=== PATIENT | male | born 1985 | race Caucasian/White ===

== ENCOUNTER 2024-12-02 20:35 | Emergency (ER) | payer OTHER, SELFPAY ==
[2024-12-02] VITALS (17 sets, daily range): BP systolic 131–150; BP diastolic 66–85; PULSE 53–92; TEMP 36.5; O2SAT 95–99; BMI 28.8
--- NOTE | 2024-12-02 21:03 | ECG_ITS ---
The [facility] Test Date: 2024-12-02 Pat Name: AMNA AMES Department: Room: - Gender: Male [employer]: : 1985 Requested By: BHAVIN PARRA Order Number: [id number] Reading MD: BHAVIN PARRA Measurements Intervals [place] Rate: 52 P: -57 MA: 168 QRS: 37 QRSD: 106 T: 0 QT: 400 QTc: 380 Interpretive Statements 1200 Atrial rhythm 9140 abnormal rhythm ECG No previous ECG available for comparison Electronically Signed On 12-03-2024 6:54:48 EST by BHAVIN PARRA
--- NOTE | 2024-12-02 21:29 | ED_ITS ---
HPI HPI - Fall General Chief Complaint: Fall Stated Complaint: FELL Time Seen by Provider: 12/02/24 20:54 Source: patient Mode of arrival: walk-in Limitations: no limitations History of Present Illness HPI Narrative: This 39-year-old male who is otherwise healthy is brought to the emergency department by his parents. The patient was outside with his walking their dog. He was in the driveway and she was in the backyard. He fell in the driveway and hit the right side of his eyebrow sustaining approximately 1 cm laceration to the right lateral eyebrow area. He states that the time that he fell he put his right hand out to stop his fall and also has some right wrist injury with extension of the right wrist. He also fell onto his right hip and has some right lateral hip pain. He was able to ambulate after that fall and went around the back of the house to find his and their dog. He then went inside and was standing over the sink washing out the laceration when he became dizzy and passed out and fell on the floor. EMS was called by the patient's . His vital signs were stable and the decision was made that his parents would bring him to the emergency department. While in the lobby he became dizzy and nauseated and states he felt really hot like he was going to pass out. He denies any chest pain or shortness of breath. He has no focal weakness numbness or tingling. He has no neck or back pain. Related Data Home Medications ?Medication ?Instructions ?Recorded ?Confirmed No Known Home Medications 12/02/24 12/02/24 Allergies Allergy/AdvReac Type Severity Reaction Status Date / Time No Known Drug Allergies Allergy Verified 12/02/24 20:43 Opioid HPI Opioid Management Most Recent Pain and Opioid Data: No Data to Display Review of Systems ROS Status of ROS 10 or more systems reviewed and unremark able except as noted in history and below PFSH PFSH Social History Little interest or pleasure in doing things: not at all Feeling down, depressed, or hopeless: not at all Exam Narrative Exam Narrative: Vital signs and Nursing Notes reviewed: Patient is afebrile with a normal pulse, blood pressure is elevated 144/85, he is not hypoxic with pulse ox of 99% on room air General: Awake, alert, oriented, no acute distress, lying comfortably on the stretcher-GCS 15 HEENT: Normocephalic atraumatic, mucous membranes are moist and pink, eyes are clear, normal conjunctiva, vision is grossly intact, posterior pharynx is normal in appearance. 1 cm superficial laceration to the lateral aspect of the right eyebrow Neck: Supple, non tender Chest: Lungs are clear to auscultation with good air entry, there is no wheezing rhonchi or rales appreciated no accessory muscle use, patient is speaking in complete sentences-no chest wall tenderness to palpation CVS: Regular rate and rhythm S1-S2, no murmurs rubs or gallops, pulses are brisk and equal bilaterally ABD: Soft, nondistended, nontender, no rebound guarding or rigidity, bowel sounds are normal, no pulsatile masses appreciated Extremities: Moving all extremities, no lower extremity tenderness or swelling noted, negative Homans' sign, pulses are brisk and equal bilaterally, mild tenderness over the right lateral proximal femur without ecchymosis, abrasion or other notable abnormality. Patient is able to flex at the right hip and knee without difficulty. Mild tenderness to the distal radius and ulna without point tenderness, snuffbox tenderness ecchymosis or other notable abnormality. Patient is able to make a fist without difficulty Skin: Normal in appearance without rash,pallor, petechiae or purpura Neuro: No focal deficits, speech is clear, there is no facial droop, he is ambulatory with a steady gait Constitutional Vital Signs, click to edit/add: Last Vital Signs Temp 97.7 F 12/02/24 20:38 Pulse 92 H 12/02/24 23:20 Resp 19 12/02/24 23:20 BP 150/78 H 12/02/24 23:00 Pulse Ox 97 12/02/24 23:20 O2 Del Method Room Air 12/02/24 20:38 Course Vital Signs Vital signs: Vital Signs Temperature 97.7 F 12/02/24 20:38 Pulse Rate 63 12/02/24 20:38 Respiratory Rate 18 12/02/24 20:38 Blood Pressure 144/85 H 12/02/24 20:38 Pulse Oximetry 99 12/02/24 20:38 Oxygen Delivery Method Room Air 12/02/24 20:38 Temperature 97.7 F 12/02/24 20:38 Pulse Rate 92 H 12/02/24 23:20 Respiratory Rate 19 12/02/24 23:20 Blood Pressure 150/78 H 12/02/24 23:00 Pulse Oximetry 97 12/02/24 23:20 Oxygen Delivery Method Room Air 12/02/24 20:38 MDM - Fall MDM Narrative Medical decision making narrative: This 39-year-old male is brought to emergency department by his family after he fell on the ice in his driveway and sustained a laceration to his right lateral eyebrow area. He also states that he feels that he injured his wrist when he fell and his right hip as he fell on his right hip and braced his fall with his right wrist. He denies loss of consciousness but then went into the bathroom and was cleaning up the laceration on his face when he became dizzy and passed out. His called EMS but his vital signs were stable upon their arrival and he was brought to the emergency department by his parents. He started becoming nauseated and dizzy in the emergency department and was brought back to a room as soon as possible. EKG done upon arrival was a sinus rhythm at 52 bpm. An IV was placed and he was medicated with IV fluids, Zofran for his nausea and Tylenol. CT scan of the head and neck was ordered. The CT scans were included in the body of this report and are negative for acute findings. X-ray of the right hip is negative. X-ray of the right wrist does not show any fracture but shows findings concerning for a scapholunate ligamentous injury. Clinically the patient does not have any notable abnormality in this area but does complain of some pain in this area. Cardiac workup was ordered due to the syncopal event. He has a normal white count and hemoglobin. Electrolytes are normal with the exception of a mildly low potassium of 3.1 which was replaced orally. Glucose and troponin were both normal. The right wrist sprain was treated with an Anton wrap and wrist splint The forehead laceration was cleaned and closed with 5, 4-0 Ethilon sutures Tetanus was updated Patient remained hemodynamically stable in the emergency department and was discharged home with his family. He will be referred to outpatient orthopedics as well as his family physician for suture removal in the next 5 to 7 days. I encouraged him to drink plenty of fluids, eat bananas and drink orange juice for the low potassium and return to the emergency department for severe headache, dizziness, chest pain focal weakness numbness tingling or any concerns. Medical Records Medical records narrative: The [address] [address] [address] Scan Report Signed Patient: AMNA AMES MR#: [id number] : 1985 Acct:[id number] Age/Sex: 39 / M ADM Date: 12/02/24 Loc: ER Attending Dr: Ordering Physician: Kylee Ledesma Date of Service: 12/02/24 Procedure(s): CT head/brain wo con Accession Number(s): [id number] cc: Sanket Gonsalves D.O.~ The [address] [address] Patient Name: AMNA AMES MRN: [id number] date: 1985 Sex: M Assigned Patient Location: ER Current Patient Location: ER Accession/Order Number: [id number] Exam Date: 12/02/2024 21:56 Report Date: 12/02/2024 22:35 At the request of: KYLEE LEDESMA Procedure: CT head/brain wo con EXAM: CT head/brain wo con, CT cervical spine wo con HISTORY: fall, head injury COMPARISON: None. TECHNIQUE: Axial CT scans through the head and cervical spine were obtained without IV contrast administration. Dose reduction techniques were achieved by using: automated exposure control and/or adjustment of mA and /or kV according to patient size and/or use of iterative reconstruction technique. FINDINGS: CT BRAIN There is no evidence of acute intracranial hemorrhage or abnormal extra-axial fluid collection. No mass effect or midline shift is seen. There is no evidence of large acute territorial infarction. There is no hydrocephalus. No definite acute fracture is identified. Soft tissues are unremarkable. The visualized orbits show no abnormality. The visualized paranasal sinuses show no air-fluid level. Mastoid air cells are clear. CT CERVICAL SPINE No acute fracture or posttraumatic malalignment is seen. The dens and lateral masses of C1 are symmetric. There is straightening of the normal cervical lordotic curvature, may be related to positioning or muscle spasm. At C6-7 level, there is small disc osteophyte complex. No significant spinal canal or neural foraminal narrowing. The disc spaces are preserved. The prevertebral soft tissue space appears normal. Visualized lung apices show no acute abnormality. CT/CT head/brain wo con IMPRESSION: No CT evidence of acute intracranial abnormality. No visualized acute cervical spine abnormality. Electronically authenticated by: MEGAN [facility] Date: 12/02/2024 22:35 Lab Data Attestation: I reviewed the patient's lab results. Labs: Lab Results 12/02/24 Range/Units 21:07 WBC 7.6 (4.0-11.0) 10^3/uL RBC 5.30 (4.70-6.10) 10^6/uL Hgb 15.9 (14.0-18.0) g/dL Hct 46.0 (42.0-54.0) % MCV 86.8 (80.0-94.0) fL MCH 30.0 (25.9-34.0) pg MCHC 34.6 (29.9-35.2) g/dL RDW 12.3 (11.0-15.0) % Plt Count 344 (150-450) 10^3/uL MPV 9.0 L (9.5-13.5) fL Neut % (Auto) 43.5 (43.0-75.0) % Lymph % (Auto) 44.6 (20.5-60.0) % [place] % (Auto) 7.9 (1.7-12.0) % Eos % (Auto) 3.3 (0.9-7.0) % Baso % (Auto) 0.4 (0.2-2.0) % Neut # (Auto) 3.3 (1.4-6.5) 10^3/uL Lymph # (Auto) 3.4 (1.2-3.8) 10^3/uL [place] # (Auto) 0.6 (0.3-0.8) 10^3/uL Eos # (Auto) 0.3 (0.0-0.7) 10^3/uL Baso # (Auto) 0.0 (0.0-0.1) 10^3/uL Abs Immat Gran (auto) 0.02 (0.00-0.03) 10^3/uL Imm/Tot Granulo (auto) 0.3 (0.0-0.5) % Sodium 143 (136-145) mmol/L Potassium 3.1 L (3.5-5.1) mmol/L Chloride 102 (98-107) mmol/L Carbon Dioxide 29.7 (21.0-32.0) mmol/L Anion Gap 14.4 BUN 18.0 (7.0-18.0) mg/dL Creatinine 1.10 (0.70-1.30) mg/dL Est GFR ( Amer) >60 (>=60 mL/min/1.73m^2) Est GFR (Non-Af Amer) >60 (>=60 mL/min/1.73m^2) BUN/Creatinine Ratio 16.4 Glucose 121 H (74-106) mg/dL Calcium 9.1 (8.5-10.1) mg/dL Total Bilirubin 0.3 (0.2-1.0) mg/dL AST 22 (15-37) U/L ALT 38 (16-63) U/L Alkaline Phosphatase 70 (46-116) U/L Troponin I High Sens 5.7 (4.0-76.1) pg/mL Total Protein 7.6 (6.4-8.2) g/dL Albumin 3.9 (3.4-5.0) g/dL Globulin 3.7 g/dL Albumin/Globulin Ratio 1.1 ECG Data Attestation: I personally reviewed and interpreted this ECG as follows: (Sinus bradycardia 52 bpm, normal axis, nonspecific ST changes, no acute ST segment elevation or T wave inversion) Discharge Plan Discharge Chief Complaint: Fall Clinical Impression: Fall due to ice or snow, Laceration of eyebrow, Closed head injury, Sutured skin wound, Syncope, Injury of wrist, right, Contusion of hip Patient Disposition: Home, Self-Care Time of Disposition Decision: 23:11 Condition: Good Prescriptions / Home Meds: No Action No Known Home Medications Print Language: Thai Instructions: Wrist Injury (ED), Laceration (ED), Syncope (ED), Head Injury (ED) Additional Instructions: Sutures can be removed in 5 to 7 days. Please leave the Anton wrap and splint on your right wrist until you are seen in follow-up. Return to the emergency department for severe headache, intractable vomiting, severe dizziness, focal weakness numbness or any concerns. Drink plenty of fluids including orange juice and bananas over the course of the next several days to replace your potassium Referrals: Sanket Gonsalves DO [Primary Care Provider] - 1 week Mansoor Fregoso MD [Physician] - As soon as possible Discharge Date/Time: 12/02/24 23:31 Procedures ED Procedure Instructions Procedures Procedures: Sprain treatment without manipulation. An Anton wrap was applied over the right distal forearm and a immobilizing splint was placed over the Anton wrap. Patient tolerated this procedure well. Forehead laceration repair; the wound was irrigated with Hibiclens and normal saline. The wound edges were infiltrated with 1% lidocaine and 5, 4-0 Ethilon sutures were placed into the laceration with good wound edge approximation. Patient tolerated procedure well
--- NOTE | 2024-12-02 21:29 | XR_ITS ---
The [address] [address] Patient Name: AMNA AMES MRN: [id number] date: 1985 Sex: M Assigned Patient Location: ER Current Patient Location: ER Accession/Order Number: [id number] Exam Date: 12/02/2024 21:56 Report Date: 12/02/2024 22:52 At the request of: ROBBIE HEART Procedure: XR wrist RT 2V EXAM: XR wrist RT 2V HISTORY: fall onto outstretched hand COMPARISON: None. TECHNIQUE: 2 views of the right wrist FINDINGS: No acute fracture. Normal osseous mineralization. Widening of the scapholunate interval with volar tilt of the scaphoid. XR/XR wrist RT 2V IMPRESSION: No evidence of fracture. Findings suggestive of scapholunate ligament injury. Electronically authenticated by: ULISES BOWMAN Date: 12/02/2024 22:52
--- NOTE | 2024-12-02 21:29 | XR_ITS ---
The [address] [address] Patient Name: AMNA AMES MRN: [id number] date: 1985 Sex: M Assigned Patient Location: ER Current Patient Location: ER Accession/Order Number: [id number] Exam Date: 12/02/2024 21:56 Report Date: 12/02/2024 22:53 At the request of: ROBBIE HEART Procedure: XR hip RT min 2V EXAM: XR hip RT min 2V HISTORY: fall, lateral hip injury COMPARISON: None. TECHNIQUE: 2 views of the right hip FINDINGS: No acute fracture. Normal osseous mineralization. Os acetabulum. Hip joint space maintained. Questionable acetabular undercoverage. XR/XR hip RT min 2V IMPRESSION: No acute osseous abnormality. Electronically authenticated by: ULISES BOWMAN Date: 12/02/2024 22:53
--- NOTE | 2024-12-02 21:33 | XR_ITS ---
The [address] [address] Patient Name: AMNA AMES MRN: [id number] date: 1985 Sex: M Assigned Patient Location: ER Current Patient Location: ER Accession/Order Number: [id number] Exam Date: 12/02/2024 21:56 Report Date: 12/02/2024 22:55 At the request of: ROBBIE MARKER Procedure: XR chest 1V EXAMINATION: XR chest 1V, 12/02/2024 9:56 PM EST HISTORY: syncope COMPARISON: None. TECHNIQUE: Single frontal chest radiograph FINDINGS: Devices: None. Lungs: Adequate symmetric aeration. No focal consolidation. Pleura: No pneumothorax. No significant pleural effusion. Heart and mediastinum: Normal cardiomediastinal contours. Bones / Chest wall: No displaced fracture identified. IMPRESSIONS: No acute cardiopulmonary findings. Electronically authenticated by: ULISES BOWMAN Date: 12/02/2024 22:55
[2024-12-02 21:38] LABS: Basophils Percent Auto 0.4 % (0.2-2.0); Eosinophils Absolute Auto 0.3 10^3/uL (0.0-0.7); Eosinophils Percent Auto 3.3 % (0.9-7.0); Hemoglobin 15.9 g/dL (14.0-18.0); Immature Granulocytes Abs Auto 0.02 10^3/uL (0.00-0.03); Immature Granulocytes Pct Auto 0.3 % (0.0-0.5); Lymphocytes Absolute Auto 3.4 10^3/uL (1.2-3.8); Lymphocytes Percent Auto 44.6 % (20.5-60.0); Mean Corpuscular HGB Conc 34.6 g/dL (29.9-35.2); Mean Corpuscular Volume 86.8 fL (80.0-94.0); Monocytes Absolute Auto 0.6 10^3/uL (0.3-0.8); Monocytes Percent Auto 7.9 % (1.7-12.0); Neutrophils Absolute Auto 3.3 10^3/uL (1.4-6.5); Neutrophils Percent Auto 43.5 % (43.0-75.0); Platelet Count 344 10^3/uL (150-450); Red Cell Distribution Width 12.3 % (11.0-15.0); White Blood Count 7.6 10^3/uL (4.0-11.0)
[2024-12-02] MEDS: ONDANSETRON PF 4 MG/2 ML VIAL IV (21:43)
[2024-12-02] MEDS: ACETAMINOPHEN 325 MG TABLET 650 MG PO (21:43)
[2024-12-02] MEDS: 0.9 % SODIUM CHLORIDE 1,000 ML 1000 ML IV (21:43)
[2024-12-02] MEDS: ADACEL DIPH,PERTUSS(ACELL),TET VAC/PF 0.5 ML ADULT SYRINGE IM (21:44)
[2024-12-02 21:58] LABS: Alanine Aminotransferase 38 U/L (16-63); Albumin Globulin Ratio 1.1; Albumin Level 3.9 g/dL (3.4-5.0); Alkaline Phosphatase 70 U/L (46-116); Anion Gap 14.4; Aspartate Amino Transferase 22 U/L (15-37); BUN Creatinine Ratio 16.4; Bilirubin Total 0.3 mg/dL (0.2-1.0); Calcium 9.1 mg/dL (8.5-10.1); Carbon Dioxide 29.7 mmol/L (21.0-32.0); Chloride 102 mmol/L (98-107); Estimated GFR (African America >60 (>=60 mL/min/1.73m^2); Estimated GFR (Non-African Ame >60 (>=60 mL/min/1.73m^2); Globulin 3.7 g/dL; Potassium 3.1 mmol/L (3.5-5.1); Sodium 143 mmol/L (136-145); Total Protein 7.6 g/dL (6.4-8.2)
[2024-12-02 21:59] LABS: Glucose 121 mg/dL (74-106); Troponin I High Sensitivity 5.7 pg/mL (4.0-76.1)
[2024-12-02] MEDS: POTASSIUM CHLORIDE 10 MEQ ER TABLET 20 MEQ PO (23:19)
[2024-12-02] MEDS: LIDOCAINE HCL 1% 100 MG/10 ML MDV INJ (23:23)
== END 2024-12-02 23:31 | disposition home or self-care (01) ==
PROVIDERS: Emergency Provider Emergency Medicine; PCP Internal Medicine
DX: S01.111A Laceration without foreign body of right eyelid and periocular area, initial encounter (principal); S63.501A Unspecified sprain of right wrist, initial encounter; W18.39XA Other fall on same level, initial encounter; R55 Syncope and collapse; Z23 Encounter for immunization; E87.6 Hypokalemia; S09.8XXA Other specified injuries of head, initial encounter; S70.01XA Contusion of right hip, initial encounter
CPT/HCPCS: 12011; 36415; 70450; 71045; 72125; 73100; 73502; 80053; 84484; 85025; 90471; 90715; 93005; 96361; 96374; 99285; J2405

== ENCOUNTER 2024-12-10 06:48 | Outpatient (OUT) | payer OTHER, SELFPAY ==
--- OUTSIDE RECORDS SUMMARY | 2024-12-10 06:52 | XMS_ITS | CCD ---
Author Organization [facility] Care Team Providers Care Car Framer Name Role Phone DR SANKET GONSALVES Attending Unavailable MAJOR, DR DELCID Consulting Unavailable MAJOR, DR DELCID Admitting Sanket Garcia DO Unavailable Sanket Gonsalves Unavailable ARISTEO LANGE Referring Unavailable ARISTEO LANGE Attending Unavailable ARISTEO LANGE Referring Unavailable ARISTEO LANGE Attending Unavailable Medications Current Medications Medication Drug Class(es) Dates Sig (Normalized) Sig (Original) azithromycin 250 mg oral tablet (1 source) Macrolide Antimicrobial Start: 12-10-2022 Azithromycin 250 MG as directed Orally daily for 5 days Nov, Active meloxicam 15 mg oral tablet (2 sources) Nonsteroidal Anti-inflammatory Drug Start: 02-04-2024 take 1 tablet by mouth once daily Meloxicam Active 0 .ROUTE .COMPLEX February 04, 2024 1:23pm TAKE 1 TABLET BY MOUTH EVERY DAY Start: 01-07-2024 End: 02-04-2024 take 15 mg by mouth once daily Meloxicam Discontinued 15 MG PO Daily January 07, 2024 12:00am February 04, 2024 1:24pm Problems Active Problems Problem Classification Problem Date Documented Date Episodic/Chronic Contraceptive and procreative management (2 sources) Encounter for other general counseling and advice on contraception; Translations: [Encounter for sterilization] Onset: 07-08-2023 Episodic Other male genital disorders (1 source) Spermatocele; Translations: [Spermatocele of epididymis, single] Episodic Other non-traumatic joint disorders (1 source) Pain in right shoulder; Translations: [Right shoulder pain] 01-07-2024 Episodic Other nutritional; endocrine; and metabolic disorders (1 source) Body mass index 30+ - obesity; Translations: [Obesity, unspecified] Chronic Other nutritional; endocrine; and metabolic disorders (1 source) Obesity, unspecified Chronic Other nutritional; endocrine; and metabolic disorders (2 sources) Overweight; Translations: [Overweight] 01-07-2024 Episodic Other upper respiratory infections (1 source) Streptococcal pharyngitis Episodic Skin and subcutaneous tissue infections (1 source) Cellulitis of finger of left hand; Translations: [Cellulitis of left finger] Episodic Superficial injury; contusion (1 source) Abrasion and/or friction burn of hand without infection; Translations: [Abrasion of right hand, initial encounter] Episodic Past or Other Problems Problem Classification Problem Date Documented Da te Episodic/Chronic Conditions associated with dizziness or vertigo (2 sources) Dizziness and giddiness; Translations: [Dizziness and giddiness] Onset: 07-16-2016 01-07-2024 Episodic Results Test Name Value Interpretation Reference Range Facil ity Basophils Auto (Bld) [#/Vol] on 06-05-2024 Basophils (Bld) [#/Vol] 0.0 10 3/uL 0.0-0.1 [facility] Basophils/100 WBC Auto (Bld) on 06-05-2024 Basophils/100 WBC (Bld) 0.5 % 0.2-2.0 [facility] Cholesterol in LDL Calc [Mas s/Vol]on 06-05-2024 Cholesterol in LDL [Mass/Vol] 138.0 mg/dL [facility] Comment on above: <100 mg/dl [id number] 0-129 mg/dl NEAR OR ABOVE [id number] mg/dl BORDERLINE [id number] mg/dl HIGH>190 mg/dl VERY HIGH Cholesterol in VLDL Calc [Ma ss/Vol]on 06-05-2024 Cholesterol in VLDL [Mass/Vol] 20.6 mg/dL [facility] Eosinophils/100 WBC Auto (Bl d)on 06-05-2024 Eosinophils/100 WBC (Bld) 3.4 % 0.9-7.0 [facility] Erythrocyte distribution wid th Auto (RBC) [Ratio]on 06-05-2024 Erythrocyte distribution width (RBC) [Ratio] 12.3 % 11.0-15.0 [facility] Estimated glomerular filtrat ion rate (GFR) non- Americanon 06-05-2024 GFR/1.73 sq M.predicted among non-blacks MDRD (S/P/Bld) [Vol rate/Area] mL/min/{1.73_m2} >=60 [facility] Globulin Calc (S) [Mass/Vol] on 06-05-2024 Globulin (S) [Mass/Vol] 3.6 g/dL [facility] Hematocrit Auto (Bld) [Volum e fraction]on 06-05-2024 Hematocrit (Bld) [Volume fraction] 48.7 % 42.0-54.0 [facility] Hemoglobin [Mass/volume] in Bloodon 06-05-2024 Hemoglobin (Bld) [Mass/Vol] 16.7 g/dL 14.0-18.0 [facility] Laboratory - Chemistry and C hemistry - challengeon 06-05-2024 Albumin [Mass/Vol] 4.1 g/dL 3.4-5.0 [facility] ALP [Catalytic activity/Vol] 64 U/L 46-116 [facility] ALT [Catalytic activity/Vol] 29 U/L 16-63 [facility] AST [Catalytic activity/Vol] 20 U/L 15-37 [facility] Bilirubin [Mass/Vol] 0.8 mg/dL 0.2-1.0 [facility] Calcium [Mass/Vol] 9.1 mg/dL 8.5-10.1 [facility] Chloride [Moles/Vol] 101 mmol/L 98-107 [facility] Cholesterol [Mass/Vol] 210 mg/dL High <=200 [facility] Cholesterol in HDL [Mass/Vol] 52 mg/dL 40-60 [facility] Comment on above: > or =60 mg/dl - LOW CARDIOVASCULAR RISK<40 mg/dl - HIGH CARDIOVASCULAR RISK CO2 [Moles/Vol] 28.5 mmol/L 21.0-32.0 [facility] Creatinine [Mass/Vol] 0.98 mg/dL 0.70-1.30 [facility] GFR/1.73 sq M.predicted MDRD (S/P/Bld) [Vol rate/Area] mL/min/{1.73_m2} >=60 [facility] Glucose [Mass/Vol] 84 mg/dL 74-106 [facility] Potassium [Moles/Vol] 3.7 mmol/L 3.5-5.1 [facility] Protein [Mass/Vol] 7.7 g/dL 6.4-8.2 [facility] Sodium [Moles/Vol] 137 mmol/L 136-145 [facility] Triglyceride [Mass/Vol] 103 mg/dL <=150 [facility] TSH Qn 2.811 m[IU]/L 0.358-3.740 [facility] Urea nitrogen [Mass/Vol] 20.0 mg/dL High 7.0-18.0 [facility] Urea nitrogen/Creatinine [Mass ratio] 20.4 mg/mg [facility] Laboratory - Hematology and Cell countson 06-05-2024 Immature granulocytes/100 WBC (Bld) 0.3 % 0.0-0.5 [facility] Leukocytes [#/volume] correc sujata for nucleated erythrocytes in Blood by Automated counon 06-05-2024 WBC corrected for nucl RBC Auto (Bld) [#/Vol] 6.2 10 3/uL 4.0-11.0 [facility] Lymphocytes Auto (Bld) [#/Vo l]on 06-05-2024 Lymphocytes (Bld) [#/Vol] 2.2 10 3/uL 1.2-3.8 [facility] Lymphocytes/100 WBC Auto (Bl d)on 06-05-2024 Lymphocytes/100 WBC (Bld) 35.6 % 20.5-60.0 [facility] MCH Auto (RBC) [Entitic mass ]on 06-05-2024 MCH (RBC) [Entitic mass] 30.5 pg 25.9-34.0 [facility] MCHC Auto (RBC) [Mass/Vol]on 06-05-2024 MCHC (RBC) [Mass/Vol] 34.3 g/dL 29.9-35.2 [facility] MCV Auto (RBC) [Entitic vol] on 06-05-2024 MCV (RBC) [Entitic vol] 88.9 fL 80.0-94.0 [facility] Monocytes Auto (Bld) [#/Vol] on 06-05-2024 Monocytes (Bld) [#/Vol] 0.6 10 3/uL 0.3-0.8 [facility] Monocytes/100 WBC Auto (Bld) on 06-05-2024 Monocytes/100 WBC (Bld) 9.1 % 1.7-12.0 [facility] Neutrophils Auto (Bld) [#/Vo l]on 06-05-2024 Neutrophils (Bld) [#/Vol] 3.2 10 3/uL 1.4-6.5 [facility] Neutrophils/100 WBC Auto (Bl d)on 06-05-2024 Neutrophils/100 WBC (Bld) 51.1 % 43.0-75.0 [facility] No Panel Informationon 06-05 Eosinophils # (Auto) 0.2 10 3/uL 0.0-0.7 [facility] Immature Granulocyte # (Auto) 0.02 10 3/uL 0.00-0.03 [facility] Platelet mean volume Auto (B ld) [Entitic vol]on 06-05-2024 Platelet mean volume (Bld) [Entitic vol] 9.2 fL Low 9.5-13.5 [facility] Platelets Auto (Bld) [#/Vol] on 06-05-2024 Platelets (Bld) [#/Vol] 339 10 3/uL 150-450 [facility] RBC Auto (Bld) [#/Vol]on RBC (Bld) [#/Vol] 5.48 10 6/uL 4.70-6.10 [facility] Serum or plasma albumin/glob ulin mass ratioon 06-05-2024 Albumin/Globulin [Mass ratio] 1.1 {ratio} [facility] Serum or plasma anion gap de terminationon 06-05-2024 Anion gap [Moles/Vol] 11.2 mmol/L [facility] Serum or plasma total choles terol/high density lipoprotein (HDL) cholesterol mass florence 06-05-2024 Cholesterol.total/Ch olesterol in HDL [Mass ratio] 4.0 {ratio} [facility] Comment on above: 3.3 - 4.4 LOW RISK4. 4 - 7.1 AVERAGE RISK7.1 - 11.0 MODERATE RISK>11.0 HIGH RISK POST VASEC SCREENon 07-08-20 23 Collection time (Stephany) [Date/time] 1130 Normal [facility] Comment on above: Order Comment: Speci men Type: SEMINAL FLUID SPECIMEN Ordering Facility: [facility] Address: [address] [address] Result Comment: 1131 Performed By: #### S EPOST #### [facility] CLIA [id number] [facility] [place] [address] Color (Stephany) Friedman Opalescent Normal [facility] Comment on above: Order Comment: Speci men Type: SEMINAL FLUID SPECIMEN Ordering Facility: [facility] Address: [address] [address] Performed By: #### S EPOST #### [facility] CLIA [id number] [place] [address]. [place] [address] COMMENT POST VASEC No sperm seen on wet preps. Normal [facility] Comment on above: Order Comment: Speci men Type: SEMINAL FLUID SPECIMEN Ordering Facility: [facility] Address: [address] [address] Performed By: #### S EPOST #### [facility] CLIA [id number] [address] [place] [address] pH (Stephany) 7.6 Normal >=7.2 [facility] Comment on above: Order Comment: Speci men Type: SEMINAL FLUID SPECIMEN Ordering Facility: [facility] Address: [address] [address] Performed By: #### S EPOST #### [facility] CLIA [id number] [place] [address]. [place] [address] POST VASECTOMY SCREEN Pass per AUA guidelines (<=100,000 non-motile sperm/mL ) Normal Pass per AUA guidelines (<=100,000 non-motile sperm/mL ) [facility] Comment on above: Order Comment: Speci men Type: SEMINAL FLUID SPECIMEN Ordering Facility: [facility] Address: [address] [address] Performed By: #### S EPOST #### [facility] CLIA [id number] [address] [place] [address]. [place] [address] Sexual abstinence duration [Time] 4.0 Days Normal [facility] Comment on above: Order Comment: Speci men Type: SEMINAL FLUID SPECIMEN Ordering Facility: [facility] Address: [address] [address] Performed By: #### S EPOST #### [facility] CLIA [id number] [address] [place] [id number] Specimen volume (Stephany) 6.00 mL Normal >=1.50 [facility] Comment on above: Order Comment: Speci men Type: SEMINAL FLUID SPECIMEN Ordering Facility: [facility] Address: [address] [place] [address] Performed By: #### S EPOST #### [facility] CLIA [id number] [address] [place] [address]. [place] [address] Spermatozoa Motile/100 spermatozoa (Stephany) No motile sperm seen Normal No motile sperm seen [facility] Comment on above: Order Comment: Speci men Type: SEMINAL FLUID SPECIMEN Ordering Facility: [facility] Address: [address] [address] Performed By: #### S EPOST #### [facility] CLIA [id number] [address] [place] [address] TIME TO ANALYSIS 24 Minutes Normal 0-60 [facility] Comment on above: Order Comment: Speci men Type: SEMINAL FLUID SPECIMEN Ordering Facility: [facility] Address: [address] [address] Performed By: #### S EPOST #### [facility] CLIA [id number] [address] [place] [address]. [place] [address] CNOVon 04-01-2023 CNOV Office Visit (UROLAV) AMNA AMES ([id number]) 1985 M Date Time Provider Department 04/01/23 8:00 AM ARISTEO LANGE During your visit today, we recorded the following information about you: Pulse Blood pressure 58/minute 125/79 Lexy Witt LPN 04/01/2023 8:56 AM Signed PRE PROCEDURE NURSE ASSESSMENT Patient ID with two(2)identifiers verified by: Lexy Witt LPN Procedure Indication: Vasectomy Procedure April 01, 2023 Time In: 0800 Latex Allergy: No Allergies reviewed and updated. Yes Pre-Procedure Vital Signs: Heart valve replacement: No Joint replacement: No Back Office UA otained: not applicable Pre-Procedure Antibiotics: None Current pain intensity is 0 on a 0-10 pain scale. Grounding pad applied L, lot # [id number], exp date 12/18/2024, bovie unit # [id number] Valium taken at 7am Patient Prep: Betadine Scrub to scrotum and Pelvic area surrounding. Placement of Sterile Drape. COMPLETED Anesthetic Given:Administered by MD - see Procedure Physician Note. Nesacaine 3% HCI 1- 10 ml syringe Injected into the scrotum prior to performing the vasectomy - bilateral. Lexy Witt LPN UNIVERSAL PROTOCOL / SAFETY CHECKLIST Procedure to be performed: Vasectomy Procedure Sign in Communication: Completed Time Out: Team Confirms the Correct Patient, Correct Procedure, Correct Site and Site Marking, Correct Position (if applicable) Sign Out Discussion: Completed Lexy Witt LPN POST PROCEDURE NURSE ASSESSMENT Procedure/Indication : Vasectomy Procedure Bovie pad removed, site WNL. Pt. Tolerated procedure well. Instruction sheet given and reviewed and patient verbalizes understanding: yes Post-Procedure Vital Signs: 125/79 Post Procedure Antibiotic: As Prescribed Current pain intensity is 0 on a 0-10 pain scale. No active bleeding noted. DSD placed on scrotum and secured with scrotal support Lexy Witt LPN AMBULATORY PATIENT EDUCATION THE FOLLOWING WAS EVALUATED Motivation To Learn: Eager Family/Significant Other Support: None - Unavailable/disinter ested Cognitive Ability: Alert/Oriented Method of Instruction: Individual instruction Written instruction - handouts Verbal instruction The Following Influencing Factors Were Barriers To This Education Session: None The Following Physical Limitations Were Barriers To This Education Session: None Instruction Provided To: Patient Chemist Intern Present: not applicable Discipline: Nursing Learning Topic: SURVIVAL SKILLS: Complication Prevention, precautions, andrology supplies and Symptom Management Patient Evaluation: Verbalizes understanding: Yes Supplemental Material Given: Written Material Instructed By Lexy Witt LPN in Urology Department . Pt. escorted pt to lobby. Fam sheth. Pt stated no further questions at this time. Lexy Witt LPN 04/01/2023 8:22 AM Signed Post-Operative Instructions for Vasectomy General Instructions: Observe the area for signs of excessive bleeding. If there is some oozing from the incision, hold pressure with a clean gauze or issue for 5 minutes by the clock. Keep the area clean and dry Apply ice to the operative area for 24-36 hours after procedure - 10 minutes on, 10 minutes off as much as you can tolerate. A bag of frozen vegetables works well for the scrotum. Do not place the ice directly on the skin. You may shower 24 hours after the procedure. Apply ointment (Acquafor, Vaseline, bacitracin or neosporin) to the incisions after you shower. Wear an athletic support or briefs for a minimum of 3 days - some men choose to wear athletic support for a few weeks following the procedure. Keep the scrotum elevated with a rolled up towel while you are seated or laying down to help reduce swelling. Contact Dr. Lange's office, if you develop any of the following: Increasing and significant pain, very red/tender incision, foul or purulent discharge from the incision, very severe swelling, or fever of 101 or higher. It is NORMAL to have swelling after a vasectomy and one side may be worse than the other. Contact Numbers: [facility]: [phone] - ask to speak to or leave a message for the urology nurses [facility] Peters: [phone] - ask to speak to or leave a message for the urology nurses [facility]: [phone] Activity Level: No heavy lifting >20 lbs or vigorous activity for 1 week OK to resume sexual activity in 1 week Medications: You can take xvow-ouy-[id number] tylenol and/or ibuprofen as needed for pain. For the first 24 hours, I recommend taking dwkh-css-cplvyim dosing of tylenol alternating with ibuprofen every 4 hours (For Example, 8 AM tylenol, 12 PM ibuprofen, 4 PM Tylenol, 8 PM Ibuprofen). All normal medications can be resumed after the procedure Semen Analysis: Please get a semen eusebio (more content not included)... Normal [facility] CNPNon 12-27-2022 CNPN Telephone (UROLAV) AMNA AMES ([id number]) 1985 M Date Time Provider Department 12/27/22 ARISTEO LANGE During your visit today, we recorded the following information about you: Donya Danica Suresh [facility] 12/27/2022 11:17 AM Signed Patient calling. Had a VV with Dr Lange on 12/21/22. Was waiting to get a call to schedule vasectomy, however, having some misgivings on have Dr Lange do it for various reasons. Please contact to schedule with another provider. If he needs seen again, please advise, would like to stay with [place] for the procedure if possible. Jacek Small 12/28/2022 4:10 PM Signed Late note from yesterday. I spoke with patient and he would like to stick with Dr. Lange. Patient is scheduled for March and on waitlist Allergies As of Date: 12/27/2022 (Not on File) Date Reviewed: Never Reviewed Reason for Visit: Procedure [88] Problem List As Of Date: 12/27/2022 (None) Encounter Status:Closed by JACEK SMALL on 12/28/22 [facility] CBC AUTO DIFFon 06-07-2022 BASO # 0.0 103/ul Normal 0.0-0.1 [facility] Comment on above: Performed By: #### H FPFCBC #### [facility] [address] [place] [address] Dr. Blaire Wilson Basophils/100 WBC (Bld) 0.5 % Normal 0.2-2.0 [facility] Comment on above: Performed By: #### H FPFCBC #### [facility] [address] [place] [address] Dr. Blaire Wilson EO # 0.2 103/ul Normal 0.0-0.7 [facility] Comment on above: Performed By: #### H FPFCBC #### [facility] [address] [place] [address] Dr. Blaire Wilson Eosinophils/100 WBC (Bld) 3.1 % Normal 0.9-7.0 [facility] Comment on above: Performed By: #### H FPFCBC #### [facility] [address] [place] [address] Dr. Blaire Wilson Erythrocyte distribution width (RBC) [Ratio] 12.7 % Normal 11.0-15.0 [facility] Comment on above: Performed By: #### H FPFCBC #### [facility] [address] [place] [address] Dr. Blaire Wilson Hematocrit (Bld) [Volume fraction] 45.9 % Normal 42.0-54.0 [facility] Comment on above: Performed By: #### H FPFCBC #### [facility] [address] [place] [address] Dr. Blaire Wilson Hemoglobin (Bld) [Mass/Vol] 15.3 g/dL Normal 14.0-18.0 [facility] Comment on above: Performed By: #### H FPFCBC #### [facility] [address] [place] [address] Dr. Blaire Wilson IG # 0.01 10e3/ul Normal 0.00-0.03 [facility] Comment on above: Performed By: #### H FPFCBC #### [facility] [address] [place] [address] Dr. Blaire Wilson IG % 0.2 % Normal 0.0-0.5 [facility] Comment on above: Performed By: #### H FPFCBC #### [facility] [address] [place] [address] Dr. Blaire Wilson LYMPH # 2.0 103/ul Normal 1.2-3.8 [facility] Comment on above: Performed By: #### H FPFCBC #### [facility] [address] [place] [address] Dr. Blaire Wilson Lymphocytes/100 WBC (Bld) 36.3 % Normal 20.5-60.0 [facility] Comment on above: Performed By: #### H FPFCBC #### [facility] [address] [place] [address] Dr. Blaire Wilson MCH (RBC) [Entitic mass] 29.6 pg Normal 25.9-34.0 [facility] Comment on above: Performed By: #### H FPFCBC #### [facility] [address] [place] [address] Dr. Blaire Wilson MCHC (RBC) [Mass/Vol] 33.3 g/dL Normal 29.9-35.2 [facility] Comment on above: Performed By: #### H FPFCBC #### [facility] [address] [place] [address] Dr. Blaire Wilson MCV (RBC) [Entitic vol] 88.8 fL Normal 80.0-94.0 [facility] Comment on above: Performed By: #### H FPFCBC #### [facility] [address] [place] [address] Dr. Blaire Wilson MONO # 0.5 103/ul Normal 0.3-0.8 [facility] Comment on above: Performed By: #### H FPFCBC #### [facility] [address] [place] [address] Dr. Blaire Wilson Monocytes/100 WBC (Bld) 8.4 % Normal 1.7-12.0 [facility] Comment on above: Performed By: #### H FPFCBC #### [facility] [address] [place] [address] Dr. Blaire Wilson NEUT # 2.9 103/ul Normal 1.4-6.5 [facility] Comment on above: Performed By: #### H FPFCBC #### [facility] [address] [address] [address] Blaire Wilson Neutrophils/100 WBC (Bld) 51.5 % Normal 43.0-75.0 [facility] Comment on above: Performed By: #### H FPFCBC #### [facility] [address] [address] [address] Blaire Wilson Platelet mean volume (Bld) [Entitic vol] 9.1 fL Critically low 9.5-13.5 [facility] Comment on above: Performed By: #### H FPFCBC #### [facility] [address] [address] [address] Blaire Wilson PLT 340 103/ul Normal 150-450 [facility] Comment on above: Performed By: #### H FPFCBC #### [facility] [address] [address] [address] Blaire Wilson RBC 5.17 106/ul Normal 4.70-6.10 [facility] Comment on above: Performed By: #### H FPFCBC #### [facility] [address] [address] [address] Blaire Wilson WBC 5.6 103/ul Normal 4.0-11.0 [facility] Comment on above: Performed By: #### H FPFCBC #### [facility] [address] [address] [address] Blaire Wilson [facility] PROFILEon 022 Albumin [Mass/Vol] 4.0 g/dL Normal 3.4-5.0 [facility] Comment on above: Performed By: #### H FPF #### [facility] [address] [address] [address] Blaire Wilson Albumin/Globulin [Mass ratio] 1.1 {ratio} Normal [facility] Comment on above: Performed By: #### H FPF #### [facility] [address] [address] [address] Blaire Wilson ALP [Catalytic activity/Vol] 60 U/L Normal 46-116 [facility] Comment on above: Performed By: #### H FPF #### [facility] [address] [address] [address] Blaire Wilson ALT [Catalytic activity/Vol] 21 U/L Normal 16-63 [facility] Comment on above: Performed By: #### H FPF #### [facility] [address] [address] [address] Blaire Wilson AST [Catalytic activity/Vol] 15 U/L Normal 15-37 [facility] Comment on above: Performed By: #### H FPF #### [facility] [address] [address] [address] Blaire Wilson Bilirubin [Mass/Vol] 0.4 mg/dL Normal 0.2-1.0 [facility] Comment on above: Performed By: #### H FPF #### [facility] [address] [place] [address] Dr. Blaire Wilson Calcium [Mass/Vol] 8.9 mg/dL Normal 8.5-10.1 [facility] Comment on above: Performed By: #### H FPF #### [facility] [address] [place] [address] Dr. Blaire Wilson Chloride [Moles/Vol] 104 mmol/L Normal 98-107 [facility] Comment on above: Performed By: #### H FPF #### [facility] [address] [place] [address] Dr. Blaire Wilson CHOL-HDL RATIO NORM SEE BELOW Normal [facility] Comment on above: Result Comment: 3.3 - 4.4 LOW RISK 4.4 - 7.1 AVERAGE RISK 7.1 - 11.0 MODERATE RISK >11.0 HIGH RISK Performed By: #### H FPF #### [facility] [address] [address] [address] Blaire Wilson Cholesterol [Mass/Vol] 176 mg/dL Normal <=200 [facility] Comment on above: Performed By: #### H FPF #### [facility] [address] [address] [address] Blaire Wilson Cholesterol in HDL [Mass/Vol] 48 mg/dL Normal 40-60 [facility] Comment on above: Performed By: #### H FPF #### [facility] [address] [address] [address] Blaire Wilson Cholesterol in LDL [Mass/Vol] 113.6 mg/dL Normal [facility] Comment on above: Performed By: #### H FPF #### [facility] [address] [address] [address] Blaire Wilson Cholesterol.total/Ch olesterol in HDL [Mass ratio] 3.7 {ratio} Normal [facility] Comment on above: Performed By: #### H FPF #### [facility] [address] [address] [address] Blaire Wilson CO2 [Moles/Vol] 28.2 mmol/L Normal 21.0-32.0 [facility] Comment on above: Performed By: #### H FPF #### [facility] [address] [address] [address] Blaire Wilson Creatinine [Mass/Vol] 0.90 mg/dL Normal 0.70-1.30 [facility] Comment on above: Performed By: #### H FPF #### [facility] [address] [address] [address] Blaire Wilson Globulin (S) [Mass/Vol] 3.5 g/dL Normal [facility] Comment on above: Performed By: #### H FPF #### [facility] [address] [address] [address] Blaire Wilson Glucose [Mass/Vol] 91 mg/dL Normal 74-106 [facility] Comment on above: Performed By: #### H FPF #### [facility] [address] [address] [address] Blaire Wilson HDL NORMAL > or = 60 mg/dl - LOW CARDIOVASCULAR RISK <40 mg/dl - HIGH CARDIOVASCULAR RISK Normal [facility] Comment on above: Performed By: #### H FPF #### [facility] [address] [address] [address] Blaire Wilson LDL CALC NORMAL SEE BELOW Normal [facility] Comment on above: Result Comment: <100 mg/dl OPTIMAL 100 - 129 mg/dl NEAR OR ABOVE OPTIMAL 130 - 159 mg/dl BORDERLINE HIGH 160 - 189 mg/dl HIGH >190 mg/dl VERY HIGH Performed By: #### H FPF #### [facility] [address] [place] [address] Dr. Blaire Wilson Potassium [Moles/Vol] 4.0 mmol/L Normal 3.5-5.1 [facility] Comment on above: Performed By: #### H FPF #### [facility] [address] [address] [address] Blaire Wilson Protein [Mass/Vol] 7.5 g/dL Normal 6.4-8.2 [facility] Comment on above: Performed By: #### H FPF #### [facility] [address] [place] [address] Dr. Blaire Wilson Sodium [Moles/Vol] 141 mmol/L Normal 136-145 [facility] Comment on above: Performed By: #### H FPF #### [facility] [address] [place] [address] Dr. Blaire Wilson Triglyceride [Mass/Vol] 72 mg/dL Normal <=150 [facility] Comment on above: Performed By: #### H FPF #### [facility] [address] [place] [address] Dr. Blaire Wilson TSH 1.730 uIU/mL Normal 0.358-3.740 [facility] Comment on above: Performed By: #### H FPF #### [facility] [address] [place] [address] Dr. Blaire Wilson Urea nitrogen [Mass/Vol] 19.0 mg/dL Critically high 7.0-18.0 [facility] Comment on above: Performed By: #### H FPF #### [facility] [address] [place] [address] Dr. Blaire Wilson Urea nitrogen/Creatinine [Mass ratio] 21.1 mg/mg Normal [facility] Comment on above: Performed By: #### H FPF #### [facility] [address] [place] [address] Dr. Blaire Wilson VLDL CALC 14.4 mg/dL Normal [facility] Comment on above: Performed By: #### H [facility] #### [facility] [address] [address] [address] Blaire Wilson Coding Summary.on 04-20-2020 Coding Summary. CODING DATE: 04/20/2020 FINAL [facility] STATUS: Home (Routine DC) PAYOR: [facility] [place] ADMIT DX: REASON FOR VISIT DX: Z01.84 Encounter for antibody response examination FINAL DX: PRINCIPAL: Z01.84 Encounter for antibody response examination SECONDARY: Z11.59 Encounter for screening for other viral diseases PYMT PROC APC STAT DESCRIPTION DOCTOR NAME DATE NOTE: The code number assigned matches the documented diagnosis and / or procedure in the patient's chart. However, the narrative phrase printed from the coding software may appear abbreviated, or result in slightly different terminology. Coded By: Angie Humphrey Date Saved: 04/20/2020 03:04 pm Normal [facility] Physician Orderon 04-03-2020 Physician Order [id number] 5#1.00CD:127 Normal [facility] Coding Summary.on 10-07-2019 Coding Summary. CODING DATE: 10/07/2019 FINAL [facility] STATUS: Home (Routine DC) PAYOR: [facility] [place] APC DESCRIPTION 5691 Level 1 Drug Administration 5693 Level 3 Drug Administration 5024 Level 4 Type A ED Visits ADMIT DX: REASON FOR VISIT DX: R11.10 Vomiting, unspecified R19.7 Diarrhea, unspecified FINAL DX: PRINCIPAL: K52.9 Noninfective gastroenteritis and colitis, unspecified SECONDARY: PYMT PROC APC STAT DESCRIPTION DOCTOR NAME DATE NOTE: The code number assigned matches the documented diagnosis and / or procedure in the patient's chart. However, the narrative phrase printed from the coding software may appear abbreviated, or result in slightly different terminology. Revised Coded By: Francisca Jackson Revised Date Saved: 10/07/2019 12:31 pm Normal [facility] Amylaseon 10-04-2019 Amylase [Catalytic activity/Vol] 73 unit/L Normal 25-157 [facility] Comment on above: Performed By: #### 1 [id number], 8633191, 3623682, 0354156, 1044718, 0069439 #### [facility] [address] [place] [address] 97828 Auto Diffon 10-04-2019 Basophils/100 WBC (Bld) 0.1 % Normal 0.0-2.0 [facility] Comment on above: Order Comment: Order Added by Discern Expert. Performed By: #### 1 [id number], 7898899, 6175599, 6758327, 6110299, 7423485 #### [facility] [address] [place] [address]262 Basophils/Leukocytes Auto (Bld) [Pure # fraction] 0.0 E9/L Normal 0.0-0.2 [facility] Comment on above: Order Comment: Order Added by Discern Expert. Performed By: #### 1 [id number], 3562383, 9213999, 3861890, 4957520, 5868352 #### [facility] [address] [place] [address] 12015 Eosinophils/100 WBC (Bld) 0.1 % Normal 0.0-8.0 [facility] Comment on above: Order Comment: Order Added by Discern Expert. Performed By: #### 1 3336863, 5166047, 0845648, 8401037, 3077840, 9413042 #### [facility] [address] [place] [address] 10388 Eosinophils/Leukocyt es Auto (Bld) [Pure # fraction] 0.0 E9/L Normal 0.0-0.5 [facility] Comment on above: Order Comment: Order Added by Discern Expert. Performed By: #### 1 1022574, 2048601, 5811713, 0770668, 7447233, 7849166 #### [facility] [address] [place] [address] 86558 Lymphocytes/100 WBC (Bld) 1.3 % Low 14.0-50.0 [facility] Comment on above: Order Comment: Order Added by Discern Expert. Performed By: #### 1 7026566, 8576481, 5160720, 1830078, 2077102, 8374123 #### [facility] [address] [place] [address] 05924 Lymphocytes/Leukocyt es Auto (Bld) [Pure # fraction] 0.2 E9/L Low 1.0-4.0 [facility] Comment on above: Order Comment: Order Added by Discern Expert. Performed By: #### 1 0354650, 3429675, 6322771, 8717591, 2176994, 1349087 #### [facility] [address] [place] [address] 31063 Monocytes/100 WBC (Bld) 5.6 % Normal 4.0-14.0 [facility] Comment on above: Order Comment: Order Added by Discern Expert. Performed By: #### 1 0274795, 9755730, 1992478, 4823619, 3764930, 0371569 #### [facility] [address] [place] [address] 87347 Monocytes/Leukocytes Auto (Bld) [Pure # fraction] 0.8 E9/L Normal 0.2-1.0 [facility] Comment on above: Order Comment: Order Added by Discern Expert. Performed By: #### 1 4997907, 5912029, 4804462, 4003004, 4619145, 5103795 #### [facility] [address] [place] [address] 94825 Neutrophils/100 WBC (Bld) 92.9 % High 36.0-75.0 [facility] Comment on above: Order Comment: Order Added by Discern Expert. Performed By: #### 1 7139200, 0559554, 6081234, 3709947, 0681514, 8434592 #### [facility] [address] [place] [address] 94429 Neutrophils/Leukocyt es Auto (Bld) [Pure # fraction] 13.6 E9/L High 2.0-7.5 [facility] Comment on above: Order Comment: Order Added by Discern Expert. Performed By: #### 1 0729519, 4966840, 1435323, 0990987, 5783013, 1220593 #### [facility] [address] [place] [address] 39614 CBC w/ Auto Diffon Erythrocyte distribution width (RBC) [Ratio] 13.2 % Normal 10.9-14.2 [facility] Comment on above: Performed By: #### 1 9219894, 6073886, 9695705, 6119764, 3235169, 8485478 #### [facility] [address] [place] [address] Hematocrit (Bld) [Volume fraction] 52.3 % High 37.7-49.0 [facility] Comment on above: Performed By: #### 1 6079935, 8724641, 0633243, 7809507, 8067513, 0548014 #### [facility] [address] [place] [address] Hemoglobin (Bld) [Mass/Vol] 18.0 g/dL High 13.5-17.5 [facility] Comment on above: Performed By: #### 1 9512746, 9959288, 8914987, 8371087, 3622341, 1866198 #### [facility] [address] [place] [address] 73835 MCH (RBC) [Entitic mass] 30.1 pg Normal 27.0-34.0 [facility] Comment on above: Performed By: #### 1 5781038, 4052512, 9193828, 7938069, 7073033, 7015297 #### [facility] [address] [place] [address] 50148 MCHC (RBC) [Mass/Vol] 34.4 g/dL Normal 31.4-36.0 [facility] Comment on above: Performed By: #### 1 4941896, 9422653, 4941071, 3136238, 4724743, 3607453 #### [facility] [address] [place] [address] MCV (RBC) [Entitic vol] 87.4 fL Normal 80.0-100.0 [facility] Comment on above: Performed By: #### 1 3211097, 1636490, 6396559, 1326554, 3396745, 3119185 #### [facility] [address] [place] [address] 75879 Platelet mean volume (Bld) [Entitic vol] 7.2 fL Normal 6.4-10.8 [facility] Comment on above: Performed By: #### 1 3507570, 7425819, 2140314, 5870947, 9697918, 1195747 #### [facility] [address] [place] [address] 44679 Platelets (Bld) [#/Vol] 334.0 E9/L Normal 150.0-500.0 [facility] Comment on above: Performed By: #### 1 9498462, 4675265, 5104170, 4164847, 8614169, 5427053 #### [facility] [address] [place] [address] 55028 RBC (Bld) [#/Vol] 6.0 E12/L High 4.3-5.9 [facility] Comment on above: Performed By: #### 1 7402526, 4778531, 0045451, 9947446, 1361228, 1728961 #### [facility] [address] [place] [address] 11286 WBC corrected for nucl RBC Auto (Bld) [#/Vol] 14.7 E9/L High 4.0-11.0 [facility] Comment on above: Performed By: #### 1 9528682, 6573485, 6731352, 6016402, 2434352, 2868992 #### [facility] [address] [place] [address] 97083 CMPon 10-04-2019 Albumin [Mass/Vol] 5.2 g/dL High 3.3-5.0 [facility] Comment on above: Performed By: #### 1 2098686, 2146990, 2002868, 6498257, 4822547, 9119244 #### [facility] [address] [place] [address] 02018 Albumin [Mass/Vol] 1.4 g/dL Normal 1.1-2.2 [facility] Comment on above: Performed By: #### 1 3290076, 5658694, 1683202, 5439835, 8021292, 2060782 #### [facility] [address] [place] [address] 53684 ALP [Catalytic activity/Vol] 57 Int._Unit/L Normal 21-98 [facility] Comment on above: Performed By: #### 1 7115009, 7868252, 8707025, 2502441, 6455276, 9583340 #### [facility] [address] [place] [address] 50396 ALT No additional P-5'-P [Catalytic activity/Vol] 21 Int._Unit/L Normal 6-46 [facility] Comment on above: Performed By: #### 1 3728782, 6748659, 5133101, 3932143, 9096376, 0946251 #### [facility] [address] [place] [address] 48755 AST [Catalytic activity/Vol] 23 Int._Unit/L Normal 5-43 [facility] Comment on above: Performed By: #### 1 4831640, 6968829, 6217661, 7391081, 6768598, 9347046 #### [facility] [address] [place] [address] Bilirubin [Mass/Vol] 1.6 mg/dL High 0.0-1.1 [facility] Comment on above: Performed By: #### 1 6769049, 1630015, 6433359, 6654931, 1625221, 2268452 #### [facility] [address] [place] [address] Creatinine [Mass/Vol] 1.0 mg/dL Normal 0.5-1.3 [facility] Comment on above: Performed By: #### 1 6635480, 0236215, 1857256, 1908876, 4044559, 7340325 #### [facility] [address] [place] [address] 19157 Globulin (S) [Mass/Vol] 3.7 g/dL Normal 1.4-4.0 [facility] Comment on above: Performed By: #### 1 7456002, 6064389, 4345167, 8065127, 9487972, 0249144 #### [facility] [address] [place] [address] Protein [Mass/Vol] 8.9 g/dL High 6.0-7.8 [facility] Comment on above: Performed By: #### 1 7356417, 3505320, 2705215, 4494780, 7455716, 3020798 #### [facility] [address] [place] [address] Urea nitrogen [Mass/Vol] 28 mg/dL High 5-21 [facility] Comment on above: Performed By: #### 1 9689039, 6904868, 5600632, 8253276, 4329520, 5854117 #### [facility] [address] [place] [address] Urea nitrogen/Creatinine [Mass ratio] 28 No Units High 10-20 [facility] Comment on above: Performed By: #### 1 7050694, 1647428, 6964904, 6051365, 8173866, 9104616 #### [facility] [address] [place] [address] Anion gap [Moles/Vol] 16 mmol/L Normal 6-16 [facility] Comment on above: Performed By: #### 1 3561244, 5332869, 2154179, 6598288, 7845333, 7032961 #### [facility] [address] [place] [address] Calcium [Mass/Vol] 9.9 mg/dL Normal 8.9-11.1 [facility] Comment on above: Performed By: #### 1 7345105, 0826772, 3620611, 2987047, 9718807, 8374140 #### [facility] [address] [place] [address] Chloride [Moles/Vol] 103 mmol/L Normal 101-111 [facility] Comment on above: Performed By: #### 1 5446797, 5504489, 7042025, 6906878, 4555657, 6429011 #### [facility] [address] [place] [address] CO2 [Moles/Vol] 25 mmol/L Normal 21-31 [facility] Comment on above: Performed By: #### 1 9512400, 1062082, 3397977, 0133529, 5999317, 1610743 #### [facility] [address] [place] [address] Glucose [Mass/Vol] 145 mg/dL Normal 55-199 [facility] Comment on above: Result Comment: If t his glucose result represents a fasting glucose, interpretation should refer to the following reference range: 55-99 mg/dL Performed By: #### 1 2176697, 7246882, 9225533, 0475747, 4574198, 8856077 #### [facility] [address] [place] [address] 23577 Potassium [Moles/Vol] 3.8 mmol/L Normal 3.5-5.3 [facility] Comment on above: Performed By: #### 1 4163216, 1372718, 5383506, 6479375, 3523121, 4500755 #### [facility] [address] [place] [address] Sodium [Moles/Vol] 140 mmol/L Normal 135-145 [facility] Comment on above: Performed By: #### 1 9987780, 7832455, 6778554, 8734935, 5936814, 2386362 #### [facility] [address] [place] [address]26 ED Clinical Summaryon 2018 ED Clinical Summary [address] [address] ED Clinical Summary Person Information Name: AMNA AMES Kathleen/[facility] Age: 34 Years : 1985 Sex: Male Language: Turkmen PCP: SANKET GONSALVES DO Marital Status: MRN: Visit Id: Visit Reason: Diarrhea; Vomiting; VOMITING, DIARRHEA Speciality: Acuity: 3 Enc Type: Emergency Med Service: Emergency Arrival: 10/04/2019 00:11:34 Discharge: 10/04/2019 03:41:39 LOS: 000 03:30 Checkin: 10/04/2019 00:11:34 Checkout: 10/04/2019 03:41:39 Dispo Type: Home (Routine DC) EVENTS: Event Name Event Status Request Date/Time Start Date/Time Complete Date/Time Arrive Complete 10/04/2019 00:11:34 10/04/2019 00:11:34 10/04/2019 00:11:34 Document Home Meds Request 10/04/2019 00:11:34 Triage Complete 10/04/2019 00:11:34 10/04/2019 00:19:45 10/04/2019 00:19:45 Bed Assign Complete 10/04/2019 00:19:51 10/04/2019 00:19:51 10/04/2019 00:19:51 Dr Exam Complete 10/04/2019 00:19:51 10/04/2019 00:30:33 10/04/2019 00:30:33 RN Exam Complete 10/04/2019 00:19:51 10/04/2019 00:27:40 10/04/2019 00:27:40 Registration Complete 10/04/2019 00:30:33 10/04/2019 00:48:59 10/04/2019 00:48:59 Meds Admin Request 10/04/2019 00:35:42 Pending Labs Complete 10/04/2019 00:35:42 10/04/2019 01:39:07 Lab Complete 10/04/2019 00:35:42 10/04/2019 01:39:07 Urine Collect Complete 10/04/2019 00:35:42 10/04/2019 01:39:07 Reg Complete Request 10/04/2019 00:48:59 Pending Labs Complete 10/04/2019 00:49:08 10/04/2019 00:49:08 10/04/2019 01:06:54 Lab Complete 10/04/2019 00:49:08 10/04/2019 00:49:08 10/04/2019 01:06:54 Pending Labs Complete 10/04/2019 01:01:42 10/04/2019 01:01:42 10/04/2019 01:01:46 Lab Complete 10/04/2019 01:01:42 10/04/2019 01:01:42 10/04/2019 01:01:46 Possible SIRS Complete 10/04/2019 01:06:09 10/04/2019 01:36:33 10/04/2019 01:36:33 Meds Admin Complete 10/04/2019 02:16:59 10/04/2019 02:25:01 Discharge Complete 10/04/2019 03:32:41 10/04/2019 03:41:43 10/04/2019 03:41:43 Transfer Complete 10/04/2019 03:41:43 10/04/2019 03:41:43 10/04/2019 03:41:43 ADDRESS: [address] [place] [address] [facility] DOC NOTES: MEDICAL INFORMATION: Prescriptions Given: New Medications Printed Prescriptions atropine-diphenoxyla te (Lomotil oral tablet) 2 Tablets By Mouth 4 times a day as needed for loose stools. Refills: 0. ondansetron (Zofran ODT 4 mg Tab) 1 Tablets By Mouth 4 times a day. Refills: 0. PATIENT EDUCATION INFORMATION: Instructions: Viral Gastroenteritis Follow up: With: Address: When: SANKET MAJOR [address] [place] [address] Business (1) In 3 days 10/07/2019 DIAGNOSIS: 1:Gastroenteritis Normal [facility] ED Note-Physicianon 10-04-20 ED Note-Physician Basic Information Time Seen: Michael Mao MD 10/04/2019 00:30 Chief Complaint complains of vomtiing and diarrhea since 1700 tonight. unable to keep anything down. states feels dehydrated History of Present Illness presents with recurrent vomiting and diarrhea for the past 6 hours. Did go to a work [employer] tonight. Others ate same food and reportedly not sick. He is not able to keep water down. Has some pain of his lower back. Denies bilious emesis Review of Systems Constitutional: no fever, no chills, no sweats, no weakness Respiratory: no shortness of breath, no cough, no orthopnea, no wheezing Cardiovascular: no chest pain, no palpitations, no edema Additional ROS info: Except as noted in the above Review of Systems and in the History of Present Illness all other systems have been reviewed and are negative or noncontributory. Physical Exam Vitals & Measurements T: 36.7 ?C (Tympanic) HR: 98(Peripheral) RR: 16 BP: 131/79 SpO2: 96% HT: 173 cm WT: 89 kg BMI: 29.74 General: alert, no acute distress Skin: warm, dry Head: no trauma, normocephalic Neck: Trachea midline, no adenopathy, no tenderness Eye: normal conjunctiva, sclera clear ENMT: , oral mucosa moist, Cardiovascular: regular rate and rhythm, normal peripheral perfusion Respiratory: Lungs CTA, respirations non labored Chest wall: no deformity. Gastrointestinal: soft, non distended, mild tenderness, no guarding. Back: No tenderness, Normal ROM, Normal alignment. Extremities: no deformity, no trauma Neurological: oriented x 4, LOC appropriate for age, CN intact, motor strength equal & normal bilaterally, sensation equal & normal bilaterally, speech normal Psychiatric: cooperative, affect appropriate for age, normal judgement, normal psychiatric thoughts. Medical Decision Making patient is feeling better after zofran and hydration. Will anticipate discharge once he completes ordered IV hydration. Planned discharge with zofran for N/V and lomotil for diarrhea Assessment/Plan 1. Gastroenteritis (K52.9: Noninfective gastroenteritis and colitis, unspecified) Orders: ondansetron, 4 mg = 2 mL, Injection, IV Push, Once, Stop date 10/04/19 0:34:00 EST, STAT, Start date 10/04/19 0:34:00 EST Sodium Chloride 0.9% intravenous solution 2,000 mL, 2,000 mL, IV, Bolus, STAT, Start date 10/04/19 0:34:00 EST, Total volume (mL): 2,000 Amylase Level Automated Diff CBC w/ Auto Diff Comprehensive Metabolic Panel eGFR Lipase Level UA With Cult Reflex Medications Administered Given Sodium Chloride 0.9% IV Miladys 1000 mL 2,000 mL, 2000 mL, IV Zofran 4 mg/2 mL Injection, 4 mg, IV Push Disposition Plan Discharge Prescription List Prescriptions No active prescription medications Follow-up No qualifying data available Problem List/Past Medical History Ongoing No qualifying data Historical No qualifying data Medications Inpatient Sodium Chloride 0.9% IV Miladys 1000 mL 2,000 mL, 2000 mL, IV Home No active home medications Allergies No Known Allergies Social History Alcohol - Denies Alcohol Use, 10/04/2019 Substance Abuse - Denies Substance Abuse, 10/04/2019 Tobacco - Denies Tobacco Use, 10/04/2019 Lab Results WBC: 14.7 E9/L High (10/04/19 00:35:00) RBC: 6 E12/L High (10/04/19 00:35:00) Hgb: 18 gm/dL High (10/04/19 00:35:00) Hct: 52.3 % High (10/04/19 00:35:00) MCV: 87.4 fL (10/04/19 00:35:00) MCH: 30.1 pg (10/04/19:35:00) MCHC: 34.4 gm/dL (10/04/19 00:35:00) RDW: 13.2 % (10/04/19 00:35:00) Platelet: 334 E9/L (10/04/19 00:35:00) MPV: 7.2 fL (10/04/19 00:35:00) Neutro Auto: 92.9 % High (10/04/19 00:35:00) Lymph Auto: 1.3 % Low (10/04/19 00:35:00) Hyde Auto: 5.6 % (10/04/19 00:35:00) Eos Auto: 0.1 % (10/04/19 00:35:00) Basophil Auto: 0.1 % (10/04/19 00:35:00) Neutro Absolute: 13.6 E9/L High (10/04/19 00:35:00) Lymph Absolute: 0.2 E9/L Low (10/04/19 00:35:00) Hyde Absolute: 0.8 E9/L (10/04/19 00:35:00) Eos Absolute: 0 E9/L (10/04/19:35:00) Basophil Absolute: 0 E9/L (10/04/19:35:00) Glucose Lvl: 145 mg/dL (10/04/19 00:35:00) BUN: 28 mg/dL High (10/04/19 00:35:00) Creatinine: 1 mg/dL (10/04/19 00:35:00) eGFR: >60 (10/04/19 00:35:00) eGFR AA: >60 (10/04/19 00:35:00) BUN/Creat Ratio: 28 High (10/04/19 00:35:00) Sodium Lvl: 140 mmol/L (10/04/19 00:35:00) Potassium Lvl: 3.8 mmol/L (10/04/19 00:35:00) Chloride: 103 mmol/L (10/04/19 00:35:00) CO2: 25 mmol/L (10/04/19 00:35:00) AGAP: 16 mEq/L (10/04/19 00:35:00) Calcium Lvl: 9.9 mg/dL (10/04/19 00:35:00) Alk Phos: 57 Int._Unit/L (10/04/19 00:35:00) ALT: 21 Int._Unit/L (10/04/19 00:35:00) AST: 23 Int._Unit/L (10/04/19 00:35:00) Total Protein: 8.9 gm/dL High (10/04/19 00:35:00) Albumin Lvl: 5.2 gm/dL High (10/04/19 00:35:00) Globulin: 3.7 gm/dL (10/04/19 00:35:00) A/G Ratio: 1.4 (10/04/19 00:35:00) Bili Total: 1.6 mg/dL High (10/04/19 00:35:00) Amylase Lvl: 73 unit/L (10/04/19 00:35:00) Lipase Lvl: 36 unit/L (10/04/19 00:35:00) UA Spec Desc: Clean Catch (10/04/19 01:20:00) UA Color: Yellow2 (10/04/19 01:20:00) UA Clarity: Clear2 (10/04/19 01:20:00) UA Spec Grav: 1.020 (10/04/19 01:20:00) UA pH: 7.0 (10/04/19 01:20:00) UA Protein: Trace2 Abnormal (10/04/19 01:20:00) UA Glucose: NEGATIVE1 (12/15/19 01:20:00) UA Ketones: 2+ Abnormal (10/04/19 01:20:00) UA Bili: NEGATIVE1 (10/04/19 01:20:00) UA Blood: NEGATIVE1 (10/04/19 01:20:00) UA Nitrite: NEGATIVE1 (10/04/19:20:00) UA Urobilinogen: 0.2 (10/04/19:20:00) UA Leuk Est: NEGATIVE1 (10/04/19:20:00) UA RBC: 0-3 (10/04/19:20:00) UA Squam Epithelial: 0-2 (10/04/19:20:00) UA WBC: 0-5 (10/04/19:20:00) UA Bacteria: Trace2 (10/04/19:20:00) UA Mucous: 2+ (10/04/19:20:00) Diagnostic Results No qualifying data available. Normal [facility] Comment on above: Result Comment: Elec tronically Signed By: Mayco AVILA, Michael\.br\Date and Time Signed: 10/04/19 19:26 EST ED Patient Education Noteon 10-04-2019 ED Patient Education Note Infectious Disease Viral Gastroenteritis Viral gastroenteritis is also known as stomach flu. This condition affects the stomach and intestinal tract. It can cause sudden diarrhea and vomiting. The illness typically lasts 3 to 8 days. Most people develop an immune response that eventually gets rid of the virus. While this natural response develops, the virus can make you quite ill. CAUSES Many different viruses can cause gastroenteritis, such as rotavirus or noroviruses. You can catch one of these viruses by consuming contaminated food or water. You may also catch a virus by sharing utensils or other personal items with an infected person or by touching a contaminated surface. SYMPTOMS The most common symptoms are diarrhea and vomiting. These problems can cause a severe loss of body fluids (dehydration) and a body salt (electrolyte) imbalance. Other symptoms may include: ? Fever. ? Headache. ? Fatigue. ? Abdominal pain. DIAGNOSIS Your caregiver can usually diagnose viral gastroenteritis based on your symptoms and a physical exam. A stool sample may also be taken to test for the presence of viruses or other infections. TREATMENT This illness typically goes away on its own. Treatments are aimed at rehydration. The most serious cases of viral gastroenteritis involve vomiting so severely that you are not able to keep fluids down. In these cases, fluids must be given through an intravenous line (IV). HOME CARE INSTRUCTIONS ? Drink enough fluids to keep your urine clear or pale yellow. Drink small amounts of fluids frequently and increase the amounts as tolerated. ? Ask your caregiver for specific rehydration instructions. ? Avoid: ? Foods high in sugar. ? Alcohol. ? Carbonated drinks. ? Tobacco. ? Juice. ? Caffeine drinks. ? Extremely hot or cold fluids. ? Fatty, greasy foods. ? Too much intake of anything at one time. ? Dairy products until 24 to 48 hours after diarrhea stops. ? You may consume probiotics. Probiotics are active cultures of beneficial bacteria. They may lessen the amount and number of diarrheal stools in adults. Probiotics can be found in yogurt with active cultures and in supplements. ? Wash your hands well to avoid spreading the virus. ? Only take bjhm-rae-nzyzgha or prescription medicines for pain, discomfort, or fever as directed by your caregiver. Do not give aspirin to children. Antidiarrheal medicines are not recommended. ? Ask your caregiver if you should continue to take your regular prescribed and hsxh-piu-zqzansl medicines. ? Keep all follow-up appointments as directed by your caregiver. SEEK IMMEDIATE MEDICAL CARE IF: ? You are unable to keep fluids down. ? You do not urinate at least once every 6 to 8 hours. ? You develop shortness of breath. ? You notice blood in your stool or vomit. This may look like coffee grounds. ? You have abdominal pain that increases or is concentrated in one small area (localized). ? You have persistent vomiting or diarrhea. ? You have a fever. ? The patient is a child younger than 3 months, and he or she has a fever. ? The patient is a child older than 3 months, and he or she has a fever and persistent symptoms. ? The patient is a child older than 3 months, and he or she has a fever and symptoms suddenly get worse. ? The patient is a baby, and he or she has no tears when crying. MAKE SURE YOU: ? Understand these instructions. ? Will watch your condition. ? Will get help right away if you are not doing well or get worse. Document Released: 10/07/2006 Document Revised: 12/29/2012 Document Reviewed: 07/23/2012 ExitCare? Patient Information ?2015 [employer]. This information is not intended to replace advice given to you by your health care provider. Make sure you discuss any questions you have with your health care provider. Normal [facility] ED Patient Summaryon 019 ED Patient Summary [address] [address] Patient Discharge Instructions Person Information Name: AMNA AMES Age: 34 Years Arrival Date: 10/04/2019 00:11:34 Discharge Diagnosis: 1:Gastroenteritis Primary Care Physician: SANKET GONSALVES DO Provider Information Primary Provider: Michael Mao MD Advanced Chief Credit Officer:None The exam and treatment you received in the Emergency Department were for an urgent problem and are not intended as complete care. It is important that you follow up with a doctor, nurse practitioner, or physician?s assistant to the vice president for ongoing care. If your symptoms become worse or you do not improve as expected and you are unable to reach your usual health care provider, you should return to the Emergency Department. We are available 24 hours a day. AMNA AMES has been given the following list of patient education materials, prescriptions and follow-up instructions: Follow-up Instructions: With: Address: When: SANKET GONSALVES [address] [place] [id number] Business (1) In 3 days 10/07/2019 In the event that this physician does not participate in your insurance network, please consult with your insurance company to find a nearby participating provider. Patient Education Materials: Viral Gastroenteritis A MESSAGE TO ALL PATIENTS REGARDING OPIOIDS PRESCRIPTION OPIOIDS: WHAT YOU NEED TO KNOW Prescription opioids can be used to help relieve jcqxxyqj-zu-xixkda pain and are often prescribed following a surgery or injury, or for certain health conditions. These medications can be an important part of the treatment but also come with serious risks. It is important to work with your healthcare provider to make sure you are getting the safest, most effective care. WHAT ARE THE RISKS AND SIDE EFFECTS OF OPIOID USE? Prescription opioids carry serious risks of addiction and overdose, especially with prolonged use. An opioid overdose, often marked by slowed breathing, can cause sudden . The use of prescription opioids can have a number of side effects as well, even when taken as directed: ? Tolerance?meaning you might need to take more of the medication for the same pain relief ? Physical dependence?meaning you have symptoms of withdrawal when a medication is stopped ? Increased sensitivity to pain ? Constipation ? Nausea, vomiting, and dry mouth ? Sleepiness and dizziness ? Confusion ? Depression ? Low levels of testosterone that can result in lower sex drive, energy, and strength ? Itching and sweating RISKS ARE GREATER WITH: ? History of drug misuse, substance use disorder, or overdose ? Mental health conditions (such as depression or anxiety) ? Sleep apnea ? Older age (65 years and older) ? Avoid alcohol while taking prescription opioids. Also, unless specifically advised by your health care provider, medications to avoid include: ? Benzodiazepines (such as Xanax or Valium) ? Muscle relaxants (such as Soma or Flexeril) ? Hypnotics (such as Ambien or Lunesta) ? Other prescription opioids KNOW YOUR OPTIONS Talk to your health care provider about ways to manage your pain that don?t involve prescription opioids. Some of these options may actually work better and have fewer risks and side effects. Options may include: ? Pain relievers such as acetaminophen, ibuprofen, and naproxen ? Some medication that are also used for depression or seizures ? Physical therapy and exercise ? Cognitive behavioral therapy, a psychological, goal-directed approach, in which patients learn how to modify physical, behavioral, and emotional triggers of pain and stress. IF YOU ARE PRESCRIBED OPIOIDS FOR PAIN: ? Never take opioids in greater amounts or more often than prescribed. ? Follow up with your primary health care provider. o Work together to create a plan on how to manage your pain. o Talk about ways to help manage your pain that don?t involve prescription opioids. o Talk about any and all concerns and side effects. ? Help prevent misuse and abuse o Never sell or share prescription opioids. o Never use another person?s prescription opioids. ? Store prescription opioids in a secure place and out of reach of others (this may include visitors, children, friends, and family). ? Safely dispose of unused prescription opioids: Find your community drug take-back program or your pharmacy mail-back program, or flush them down the toilet, following guidance from the Food and Drug Administration (www.fda.gov/Drugs/R esourcesForYou). ? Visit www.cdc.gov/drugover dose to learn about the risks of opioids abuse and overdose. ? If you believe you may be struggling with addiction, tell your health child caregiver private home and ask for guidance or call [facility]S National Helpline at 1-258-711-UJSK. c Source: US Department of Health and Human Services/Center for Disease Control & Prevention [facility] Medications Given: Medication Dose Route Sodium Chloride 0.9% intravenous solution 2000.00 mL Initial Volume 999.00 mL/hr IV Left Hand ondansetron 4.00 mg IV Push Left Hand atropine-diphenoxyla te 2.00 tab(s) Oral Medication Information: New Medications Printed Prescriptions atropine-diphenoxyla te (Lomotil oral tablet) 2 Tablets By Mouth 4 times a day as needed for loose stools. Refills: 0. ondansetron (Zofran ODT 4 mg Tab) 1 Tablets By Mouth 4 times a day. Refills: 0. Comment: Pharmacy Information: LEÓN Geronimo Thank you for choosing [facility] Patient Education Materials: Viral Gastroenteritis Viral gastroenteritis is also known as stomach flu. This condition affects the stomach and intestinal tract. It can cause sudden diarrhea and vomiting. The illness typically lasts 3 to 8 days. Most people develop an immune response that eventually gets rid of the virus. While this natural response develops, the virus can make you quite ill. CAUSES Many different viruses can cause gastroenteritis, such as rotavirus or noroviruses. You can catch one of these viruses by consuming contaminated food or water. You may also catch a virus by sharing utensils or other personal items with an infected person or by touching a contaminated surface. SYMPTOMS The most common symptoms are diarrhea and vomiting. These problems can cause a severe loss of body fluids (dehydration) and a body salt (electrolyte) imbalance. Other symptoms may include: ? Fever. ? Headache. ? Fatigue. ? Abdominal pain. DIAGNOSIS Your caregiver can usually diagnose viral gastroenteritis based on your symptoms and a physical exam. A stool sample may also be taken to test for the presence of viruses or other infections. TREATMENT This illness typically goes away on its own. Treatments are aimed at rehydration. The most serious cases of viral gastroenteritis involve vomiting so severely that you are not able to keep fluids down. In these cases, fluids must be given through an intravenous line (IV). HOME CARE INSTRUCTIONS ? Drink enough fluids to keep your urine clear or pale yellow. Drink small amounts of fluids frequently and increase the amounts as tolerated. ? Ask your caregiver for specific rehydration instructions. ? Avoid: ? Foods high in sugar. ? Alcohol. ? Carbonated drinks. ? Tobacco. ? Juice. ? Caffeine drinks. ? Extremely hot or cold fluids. ? Fatty, greasy foods. ? Too much intake of anything at one time. ? Dairy products until 24 to 48 hours after diarrhea stops. ? You may consume probiotics. Probiotics are active cultures of beneficial bacteria. They may lessen the amount and number of diarrheal stools in adults. Probiotics can be found in yogurt with active cultures and in supplements. ? Wash your hands well to avoid spreading the virus. ? Only take bepp-yht-iklhmnd or prescription medicines for pain, discomfort, or fever as directed by your caregiver. Do not give aspirin to children. Antidiarrheal medicines are not recommended. ? Ask your caregiver if you should continue to take your regular prescribed and udum-nvj-bbchxoc medicines. ? Keep all follow-up appointments as directed by your caregiver. SEEK IMMEDIATE MEDICAL CARE IF: ? You are unable to keep fluids down. ? You do not urinate at least once every 6 to 8 hours. ? You develop shortness of breath. ? You notice blood in your stool or vomit. This may look like coffee grounds. ? You have abdominal pain that increases or is concentrated in one small area (localized). ? You have persistent vomiting or diarrhea. ? You have a fever. ? The patient is a child younger than 3 months, and he or she has a fever. ? The patient is a child older than 3 months, and he or she has a fever and persistent symptoms. ? The patient is a child older than 3 months, and he or she has a fever and symptoms suddenly get worse. ? The patient is a baby, and he or she has no tears when crying. MAKE SURE YOU: ? Understand these instructions. ? Will watch your condition. ? Will get help right away if you are not doing well or get worse. Document Released: 10/07/2006 Document Revised: 12/29/2012 Document Reviewed: 07/23/2012 ExitCare? Patient Information ?2014 [employer]. This information is not intended to replace advice given to you by your health care provider. Make sure you discuss any questions you have with your health care provider. KWAKU Camacho CHRISTOPHER M , have received the following patient education materials/instructio ns and have verbalized understanding: Patient Education Materials: Viral Gastroenteritis Follow-up Instructions: With: Address: When: SANKET GONSALVES [facility], [place] [address] [facility] (1) In 3 days 10/07/2019 Patient Signature Date Clinician/Nurse Signature Date 10/04/2019 03:41:45 Normal [facility] Lipase Levelon 10-04-2019 Lipase [Catalytic activity/Vol] 36 unit/L Normal 13-58 [facility] Comment on above: Performed By: #### 1 [id number] #### [facility] [address] [place] [address] Progress Note-Nurseon 2018 Progress Note-Nurse pt drank 32 oz of water with no nausea/vomiting noted. States feels better. Notified Normal [facility] UA With Cult Reflexon 2018 Bacteria LM Ql (Urine sed) TRACE Normal Trace [facility] Comment on above: Performed By: #### 1 [id number] #### [facility] [address] [place] [address] Bilirubin Ql (U) Negative Normal Negative [facility] Comment on above: Performed By: #### 1 [id number] #### [facility] [address] [place] [address] Clarity (U) CLEAR Normal Clear [facility] Comment on above: Performed By: #### 1 [id number] #### [facility] [address] [place] [address] Color (U) YELLOW Normal Yellow [facility] Comment on above: Performed By: #### 1 [id number] #### [facility] [address] [place] [address] Epithelial cells.squamous LM.HPF (Urine sed) [#/Area] 0-2 Normal 0-2 [facility] Comment on above: Performed By: #### 1 [id number] #### [facility] [address] [place] [address] Glucose Test strip (U) [Mass/Vol] Negative Normal Negative [facility] Comment on above: Performed By: #### 1 [id number] #### [facility] [address] [place] [address] Hemoglobin Ql (U) Negative Normal Negative [facility] Comment on above: Performed By: #### 1 [id number] #### [facility] [address] [place] [address] Ketones (U) [Mass/Vol] 2+ Abnormal Negative [facility] Comment on above: Performed By: #### 1 [id number] #### [facility] [address] [place] [address] [place].plasma/Lithi um.RBC (Bld) [Mass ratio] 0-3 Normal 0-3 [facility] Comment on above: Performed By: #### 1 [id number] #### [facility] [address] [place] [address] Mucus Ql (Urine sed) 2+ Normal Fish [facility] Comment on above: Performed By: #### 1 [id number] #### [facility] [address] [place] [address] Nitrite Ql (U) Negative Normal Negative [facility] Comment on above: Performed By: #### 1 [id number] #### [facility] [address] [place] [address] pH (U) 7.0 [pH] 5.0-9.0 [facility] Comment on above: Performed By: #### 1 [id number] #### [facility] [address] [place] [address] Protein (U) [Mass/Vol] TRACE Abnormal Negative [facility] Comment on above: Performed By: #### 1 [id number] #### [facility] [address] [place] [address] Specific gravity (U) [Rel density] 1.020 1.005-1.030 [facility] Comment on above: Performed By: #### 1 [id number] #### [facility] [address] [place] [address] UA Spec Desc Clean Catch Normal [facility] Comment on above: Performed By: #### 1 [id number] #### [facility] [address] [place] [address] Urobilinogen Qn (U) 0.2 {Jennifer'U}/dL Normal 0.0-1.0 [facility] Comment on above: Performed By: #### 1 [id number] #### [facility] [address] [place] [address] WBC Auto Ql (U) Negative Normal Negative [facility] Comment on above: Performed By: #### 1 [id number] #### [facility] [address] [place] [address] WBC LM.HPF (Urine sed) [#/Area] 0-5 Normal 0-5 [facility] Comment on above: Performed By: #### 1 [id number] #### [facility] [address] [place] [address] eGFRon 10-04-2019 GFR/1.73 sq M predicted among blacks MDRD (S/P/Bld) [Vol rate/Area] mL/min/{1.73_m2} Normal >=59 [facility] Comment on above: Order Comment: Order added by Discern Expert. Result Comment: eGFR is race adjusted. AA=. Performed By: #### 1 [id number], [id number] #### [facility] [address] [place] [address] GFR/1.73 sq M predicted among non-blacks MDRD (S/P/Bld) [Vol rate/Area] mL/min/{1.73_m2} Normal >=59 [facility] Comment on above: Order Comment: Order added by Discern Expert. Result Comment: Delivery Consultant ritesh kidney disease could be indicated at eGFR's of less than 60 mL/min/1.73m2. Kidney failure is indicated at less than 15 mL/min/1.73m2. Performed By: #### 1 [id number] #### [facility] [address] [place] [address] Vital Signs Date Time Vital Sign Value Performing Clinician Facility 06-19-2024 11:160400 Body height 175.26 cm [facility] 06-19-2024 11:160400 Body mass index (BMI) [Ratio] 28.5 kg/m2 [facility] 06-19-2024 11:160400 Body weight 87.77 kg [facility] 06-19-2024 11:16-0400 Diastolic blood pressure 78 mm[Hg] [facility] 06-19-2024 11:16-0400 Heart rate 58 /min [facility] 06-19-2024 11:16-0400 Respiratory rate 12 /min [facility] 06-19-2024 11:16-0400 Systolic blood pressure 125 mm[Hg] [facility] 01-07-2024 14:37-0400 Body height 175.26 cm [facility] 01-07-2024 14:37-0400 Body mass index (BMI) [Ratio] 29 kg/m2 [facility] 01-07-2024 14:37-0400 Body weight 89.35 kg [facility] 01-07-2024 14:37-0400 Diastolic blood pressure 85 mm[Hg] [facility] 01-07-2024 14:37-0400 Heart rate 56 /min [facility] 01-07-2024 14:37-0400 Respiratory rate 12 /min [facility] 01-07-2024 14:37-0400 Systolic blood pressure 132 mm[Hg] [facility] 12-10-2022 11:00-0500 Body height 165.1 cm [facility] [employer] Other [facility] [employer] Other 12-10-2022 11:00-0500 Body mass index (BMI) [Ratio] 33.61 kg/m2 [employer] [employer] Other [employer] Other 12-10-2022 11:00-0500 Body weight 91.63 kg Sanket Ball Other [employer] Other 12-10-2022 11:00-0500 Diastolic blood pressure 76 mm[Hg] [employer] [employer] Other [employer] Other 12-10-2022 11:00-0500 Respiratory rate 12 /min Sanket Ball Other [employer] Other 12-10-2022 11:00-0500 Systolic blood pressure 122 mm[Hg] Sanket Ball Other [employer] Other Encounters Encounter Date Encounter Type Care Provider Facility Start: 06-19-2024 End: 06-19-2024 ambulatory [facility] Work Phone: Start: 06-19-2024 End: 06-19-2024 Patient encounter procedure [facility] Work Phone: Start: 06-05-2024 Non-patient / Non-visit [facility] Work Phone: Start: 01-07-2024 End: 01-07-2024 ambulatory [facility] Work Phone: Start: 01-07-2024 End: 01-07-2024 Encounter for general adult medical examination without abnormal findings [facility] Start: 01-07-2024 End: 01-07-2024 Patient encounter procedure [facility] Work Phone: Start: 07-08-2023 End: 07-08-2023 ambulatory ARISTEO C ELENO Facility:[facility] Start: 04-01-2023 End: 04-01-2023 ambulatory ARISTEO LANGE Facility:[facility] Start: 12-27-2022 Telephone encounter Aristeo kitchen MD Work Phone: Urology Comment on above: Procedure Start: 12-21-2022 End: 12-21-2022 ambulatory ARSITEO LANGE Facility:[facility] Start: 12-10-2022 End: 12-10-2022 ambulatory Sanket Gonsalves Other [facility] [employer] Other Start: 12-10-2022 Encounter for genera l adult medical examination without abnormal findings Sankte Gonsalves [facility] Start: 12-10-2022 Periodic preventive med est patient 18-39 yrs Sanket Gonsalves [facility] Start: 06-07-2022 End: 06-08-[address] SANKET GONSALVES Facility: Plan of Treatment Date Care Activity Detail Author Start: 10-21-2022 DEPRESSION ASSESSMENT DEPRESSION ASS ESSMENT [facility] Start: 2022 LIPID SCREEN LIPID SCREEN [facility] Start: 2006 Urine microalbumin profile DTAP,TDAP ,TD (1 - Tdap) [facility] Start: 2005 HEPATITIS C SCREENING HEPATITIS C SC YASMIN [facility] Start: 2005 HIV SCREENING HIV SCREENING [facility] Start: 1985 HEPATITIS B (1 of 3 - 3-dose series) HEPATITIS B (1 of 3 - 3-dose series) [facility] Immunizations Immunization Date Immunization Notes Care Provider Fa cility 09-03-2022 Pfizer/Comirnaty, Pediatric Age 5-11 [facility] Payers Date Payer Category Payer Unknown [employer] PPO [id number] 2016-Present [phone] [address] [place] [address] PPO [id number] 2016 Unknown [id number] 1959 Self-pay [id number] Unknown [id number] Social History Date Type Detail Facility Tobacco smoking status INIS Tobacco smoking consumption unknown [facility] Start: 1985 Sex Assigned At Not on file [facility] Sex Assigned At Sex Assigned At [facility] Other Start: 1985 Sex Assigned At Male F [facility] Progress note 04-01-2023 Note Date & Type Note Facility 04-01-2023 Note HNO ID: [id number] Author: Aristeo Lange MD Service: ? Author Type: Physician Type: Progress Notes Filed: 04/01/2023 9:02 AM Note Text: 04/01/2023 HPI: 37 year old male reports for vasectomy. He again confirms he desires permanent sterilization and has no desire to father children in the future. Operation: Vasectomy Anatomic Site: Vas Deferens Approach: Percutaneous Device: None Qualifier: None UNIVERSAL PROTOCOL / SAFETY CHECKLIST Procedure to be Performed: vasectomy Sign In: A Moment of CARE was completed. Personnel directly involved with the procedure wore the appropriate PPE (Personal Protective Equipment). Patient/Surrogate Stated/Verified: PATIENT VERIFIED(optional for EMERGENT procedures): Patient name, Date of , Relevant allergies, and The intended procedure Time Out Communication: Intended patient and procedure match the source documents. Consent documented and matches the intended procedure. Sign Out: SIGN OUT (optional for EMERGENT procedures): No specimen collected. Aristeo Lange MD PMHx/PSHx: see above, otherwise unchanged Rx: No scheduled NSAIDs or blood thinner for past 5 days. ROS: No new or inguinal complaints Labs: None Imaging: None PE: General: Well masculinized, well nourished male Psych: euthymic, NAD Neuro: AANDOx3 exam: see below. Procedure: Vasectomy Patient?s identity was confirmed, written informed consent was obtained, and the time out performed before the procedure was initiated The patient was placed in a supine position and the genitalia were prepped and draped in a sterile manner. Examination revealed no scrotal lesions, descended testicles bilaterally without masses and readily palpable vasa deferens. The right scrotal skin and cord structures was anesthetized with 5 cc of 2% lidocaine without epinephrine. A No-scapel technique was used to isolated and remove a small portion of the vas deferens. The vasal ends were secured with clips and hemostasis was ensured. The skin edges were closed with an absorbable suture. The procedure was repeated on the patient?s left side. The patient tolerated the procedure well. Postoperative care, limitations, and expectations were reviewed with the patient. He was again instructed to use an alternate form of control until he is notified that his postprocedure semen analysis reveals no sperm. Imp: S/p vasectomy P: 1) Semen Analysis in 3 months 2) post-procedure instructions given to pt with verbalization of understanding. Aristeo Lange MD [facility] Note 12-28-2022 Telephone Encounter - Jacek Small - 12/28/2022 4:09 PM ESTTelephone Encounter - Donya Suresh [facility] - 12/27/2022 11:15 AM EST Note Date & Type Note Facility 12-28-2022 Miscellaneous Notes Formattin g of this note might be different from the original. Late note from yesterday. I spoke with patient and he would like to stick with Dr. Lange. Patient is scheduled for March and on waitlist Patient calling. Had a VV with Dr Lange on 12/21/22. Was waiting to get a call to schedule vasectomy, however, having some misgivings on have Dr Lange do it for various reasons. Please contact to schedule with another provider. If he needs seen again, please advise, would like to stay with [place] for the procedure if possible. documented in this encounter [facility] Progress note 12-21-2022 Note Date & Type Note Facility 12-21-2022 Note HNO ID: [id number] Author: Aristeo Lange MD Service: ? Author Type: Physician Type: Progress Notes Filed: 12/21/2022 3:27 PM Note Text: This is a Virtual Visit. It required Uvffrya-an-Bksqlgfq Interaction with medical decision making as documented below. Amna Ames Referred by: No referring provider defined for this encounter. 12/21/2022 CC: Desires permanent sterilization HPI: 37 year old male states he desire permanent surgical sterilization. Reports fathering 0 children and expressly states he does not desire to father children in the future. Genitourinary history: Hx undescended testis: none Hx stone disease: none Hx UTI/prostatitis/epididimitis/STI: none ROS: Sexual frequency/libido: intact, no ED Urinary sx: none Hematuria: none No past medical history on file. No past surgical history on file. No current outpatient medications on file. No current facility-administered medications for this visit. Allergies: Patient has no allergy information on record. Family Hx: Denies family history of genitourinary malignancy Review of Systems: Constitutional: No weakness, fever/chills, unexplained weight change Psychiatric: Stable mood Skin: No rashes or lesions HEENT: No blurred vision or double vision. No severe or worsening headaches. Sense of smell intact Neck: No masses or pain Chest: No shortness of breath or cough. No history of recurrent pneumonia, bronchitis, or sinustitis. CVS: No chest pains or palpatations. No history of cardiovascular disease. GI: No nausea, vomiting or abdominal pain Neurologic: No weakness or sensory changes : see above Musculoskeletal: Stable All other systems reviewed and are negative PE: vitals: see above General: Well masculinized, well nourished male Psych: euthymic, NAD Neuro: AANDOx3. Assessment: 37 year old male desires vasectomy. The patient attests that he will watch the [facility] Vasectomy video which has been sent to him on y Chart. He was instructed to stop all NSAIDs, aspirin and other blood thinners 5 days prior to the vasectomy. He was instructed to shave entire front of scrotum to the base of the penis the morning of the vasectomy. Postprocedure care, expectations, and limitations were discussed. He voiced understanding of these instructions and stated his questions were answered. Plan: 1) Proceed to vasectomy I personally counseled this patient about the following and he voiced understanding: a) Vasectomy is a permanent and irreversible form of sterilization b) 1:1,000 rate of recanalization which can results in the return of sperm into the ejaculate after vasectomy c) Patient must use alternative form of control until he is notified that his postprocedure semen analysis contained no sperm. Consultation requested by Dr. Martinez referring provider defined for this encounter. for an opinion regarding vasectomy and my final recommendations will be communicated back to the requesting physician by way of shared Medical record or letter via US mail. Visit duration 30 minutes with approximately 50% of time in counseling Aristeo Lange MD [facility] Reason for referral (narrative) 12-21-2022 Note Date & Type Note Facility 12-21-2022 Reason for referral (narrative) Diagnosis 1 Encounter for vasect samia counseling (Z30.09) Referral Organization [facility] [place] [facility] Referring Provider First Name Sanket Referring Provider Last Name Major Referring Provider Specialty Internal Me dicine Referred Organization [facility] Referred Provider Jerman De Jesus Referred Address [address] [place], [place] Referred Provider Specialty Urology Referral Priority Routine Referral Appointment Date 2022-12-21 General Notes Miranda Cole 12/10/2022 12:26:54 PM >received todsay Miranda Cole 12/10/2022 01:38:56 PM >attachments made, notes locked and referral faxed Miranda Cole 12/17/2022 11:21:43 AM >faxed first attempt letter Miranda Cole 12/24/2022 02:27:55 PM >FAXED SECOND ATTEMPT LETTER Miranda Cole 12/25/2022 10:40:23 AM >received fax that pt had a virtual appt. faxed letter for notes Miranda Cole 12/26/2022 04:32:08 PM >notes recieved and sent to Dr. Gonsalves for review. closing referral at this time. Clinical Notes Dr. Aristeo Lange P: [phone] F: [id number] [facility] Other Evaluation note 12-10-2022 Note Date & Type Note Facility 12-10-2022 Evaluation note Encounter Date Diagnosis Assessment Notes Nov, Wellness examination (ICD-10 - Z00.00) Healthy diet and exercise. Reviewed age-appropriat e preventive testing recommended. Nov, Streptococcal pharyngitis (ICD-10 - J02.0) Instructed to use Robitussin or Mucinex for cough, saline or Flonase NS for congestion, Tylenol for pain and fever. Nov, Obesity (BMI 30-39.9) (ICD-10 - E66.9) This patient has been instructed on a low-fat, high-fiber diet. They are instructed to reduce calories, portion sizes and snacks. It is recommended that they exercise for 30 minutes, 3-5 times weekly. Nov, Encounter for vasectomy counseling (ICD-10 - Z30.09) Would like to be referred to [facility] for scapel free procedure [facility] Other Chief complaint+Reason for visit Narrative Note Date & Type Note Facility Chief complaint+Reason for visit Narrative Reason for Visit Wellness examination [facility] Work Phone: Evaluation note Note Date & Type Note Facility Evaluation note Diagnosis Onset Date Wellness examination noneact mamie [facility] Work Phone: Evaluation note Note Date & Type Note Facility Evaluation note No assessment information availa ble [facility] Work Phone: History general Narrative - Reported Note Date & Type Note Facility History general Narrative - Reported Type Medical History Spermatocele of epididymis, sing le Medical History Acute paronychia of finger of le ft hand Medical History Abrasion of palm of right hand, initial encounter Medical History Over weight [place] [facility] Other Summary Purpose Family History Relationship Condition Age at Onset Recorded Date/T thomas father Hypertension Unknown Advance Directives Advance Directive Response Recorded Date/ Time Advance Directives No January 06 2:26pm Chief Complaint and Reason for Visit Chief Complaint Lump in back of thro at Additional Source Comments (unrecognized sect ion and content) No Status Records FoundNo Status Records FoundNo Status Records Found INFORMATION SOURCE (unrecogn ized section and content) DATE CREATED AUTHOR [facility]/2020 [facility] DATE CREATED AUTHOR AUTHOR'S ORGANIZ ATION 06/13/2022 [facility] DATE CREATED AUTHOR AUTHOR'S ORGANIZ ATION 07/09/2023 [facility] Source Comments (unrecognize d section and content) In the event this informatio n is protected by the Federal Confidentiality of Alcohol and Drug Abuse Patient Records regulations: The Federal rules restrict any use of the information to criminally investigate or prosecute any alcohol or drug abuse patient.[facility] Reason for Visit (unrecogniz ed section and content) Reason Comments Procedure Care Teams (unrecognized sec tion and content) Team Status: Active Member Role Status Dates Sanket Gonsalves DO Primary Care Provider Active Team Status: Active Member Role Status Dates Sanket Gonsalves DO Primary Care Provide r, Attending Provider Active Start: June 05, 2024 Team Status: Inactive Member Role Status Dates Sanket Gonsalves DO Primary Care Provide r, Attending Provider Active Start: June 19, 2024 End: June 19, 2024 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 Specialty Start Date End Date Sanket Gonsalves DO [address] [place] [address] Referring Internal Medicine 12/18/22 Team Status: Active Member Role Status Dates Sanket Gonsalves DO Primary Care Provider Active Team Status: Inactive Member Role Status Dates Sanket Gonsalves DO Primary Care Provide r, Attending Provider Active Start: January 07, 2024 End: January 07, 2024 Team Status: Active Member Role Status Dates Sanket Gonsalves , Primary Care Provide r, Attending Provider Active Start: June 05, 2024 Team Status: Inactive Member Role Status Dates Sanket Gonsalves , DO Primary Care Provide r, Attending Provider Active Start: June 19, 2024 End: June 19, 2024 Goals (unrecognized section and content) Goals may be documented in a n alternate section FOR RECORDS PERTAINING TO PATIENTS WHO ARE OR HAVE BEEN ENROLLED IN A CHEMICAL DEPENDENCY/SUBSTANCEABUSE PROGRAM, SOME INFORMATION MAY BE OMITTED. This clinical summary was aggregated from multiple sources. Caution should be exercised in using it in the provision of clinical care. This summary normalizes information from multiple sources, and as a consequence, information in this document may materially change the coding, format and clinical context of patient data. In addition, data may be omitted in some cases. CLINICAL DECISIONS SHOULD BE BASED ON THE PRIMARY CLINICAL RECORDS. [facility] [facility]. provides no warranty or guarantee of the accuracy or completeness of information in this document.
== END 2024-12-10 06:49 | disposition home or self-care (01) ==
LOC: MRI 06:50
PROVIDERS: PCP Internal Medicine; Visit Provider Orthopaedic Surgery
DX: M25.531 Pain in right wrist (principal); S59.291A Other physeal fracture of lower end of radius, right arm, initial encounter for closed fracture
CPT/HCPCS: 73221

== ENCOUNTER 2025-01-11 07:22 | Outpatient (OUT) | payer OTHER, SELFPAY ==
--- NOTE | 2025-01-11 07:23 | XR_ITS ---
The [address] [address] Patient Name: ANMA AMES MRN: [id number] date: 1985 Sex: M Assigned Patient Location: Current Patient Location: Accession/Order Number: [id number] Exam Date: 01/11/2025 13:37 Report Date: 01/11/2025 13:39 At the request of: ULISES VALVERDE MD Procedure: XR wrist RT min 3V RIGHT WRIST - 3 views CLINICAL HISTORY: Other closed fracture of distal end of right ulna COMPARISON: MRI right wrist 12/10/2024 FINDINGS: There appears to be some degree of sclerosis involving the distal radius suggestive of healing response. No definitive acute fracture line is seen. Distal ulna appears intact. Carpus demonstrates no acute process or significant degenerative change. XR/XR wrist RT min 3V IMPRESSION: THERE APPEARS TO BE SOME DEGREE OF SCLEROSIS INVOLVING THE DISTAL RADIUS SUGGESTIVE OF HEALING RESPONSE. NO ACUTE FRACTURE LINE IS SEEN. Impression dictated by: Miguel Barron Jr., D.O.01/11/2025 1:39 PM Dictation Location: [place] [address] Electronically authenticated by: [id number] Y Date: 01/11/2025 13:39
--- OUTSIDE RECORDS SUMMARY | 2025-01-11 07:24 | XMS_ITS | CCD ---
Author Organization [facility] Care Team Providers Care Network Intern Name Role Phone DR SANKET GONSALVES Attending [...] Nov, Active meloxicam 15 mg oral tablet (6 sources) Nonsteroidal Anti-inflammatory Drug Start: 02-04-2024 take 1 tablet by mouth once daily Meloxicam 15 mg tablet Active 0 .ROUTE .COMPLEX February 04, 2024 12:23pm TAKE 1 TABLET BY MOUTH EVERY DAY Start: 01-07-2024 End: 02-04-2024 take 1 tablet by mouth once daily Meloxicam 15 mg tablet Discontinued 15 MG PO Daily January 06, 2024 11:00pm February 04, 2024 12:24pm Problems Active Problems Problem Classification Problem Date Documented Date Episodic/Chronic Acute and chronic tonsillitis (4 sources) Amygdalolith; Translations: [Other chronic diseases of tonsils and adenoids] 06-19-2024 Chronic Contraceptive and procreative management (2 sources) Encounter for other general counseling and advice on contraception; Translations: [Encounter for sterilization] Onset: 07-08-2023 Episodic Intracranial injury (4 sources) Concussion injury of body structure; Translations: [Concussion] 12-06-2024 Episodic Open wounds of head; neck; and trunk (3 sources) Laceration without foreign body of scalp, initial encounter; Translations: [Open wound of scalp, without mention of complication] 12-08-2024 Episodic Other male genital disorders (1 source) Spermatocele; Translations: [Spermatocele of epididymis, single] Episodic Other non-traumatic joint disorders (3 sources) Pain in right shoulder; Translations: [Right shoulder pain] 01-07-2024 Episodic Other nutritional; endocrine; and metabolic disorders (1 source) Body mass index 30+ - obesity; Translations: [Obesity, unspecified] Chronic Other nutritional; endocrine; and metabolic disorders (1 source) Obesity, unspecified Chronic Other nutritional; endocrine; and metabolic disorders (4 sources) Overweight; Translations: [Overweight] 01-07-2024 Episodic Other skin disorders (2 sources) Sebaceous cyst of skin; Translations: [Sebaceous cyst] 06-19-2024 Episodic Other upper respiratory infections (1 source) Streptococcal pharyngitis Episodic Skin and subcutaneous tissue infections (1 source) Cellulitis of finger of left hand; Translations: [Cellulitis of left finger] Episodic Sprains and strains (2 sources) Unspecified sprain of right wrist, initial encounter; Translations: [Sprain of wrist, unspecified site] 12-08-2024 Episodic Superficial injury; contusion (3 sources) Abrasion and/or friction burn of hand without infection; Translations: [Abrasion of right hand, initial encounter] 12-08-2024 Episodic Past or Other Problems Problem Classification Problem Date Documented Da te Episodic/Chronic Conditions associated with dizziness or vertigo (4 sources) Dizziness and giddiness; Translations: [Dizziness and giddiness] Onset: 07-16-2016 01-07-2024 Episodic Results Test Name Value Interpretation Reference Range Facil ity Basophils Auto (Bld) [#/Vol] on 12-02-2024 Basophils (Bld) [#/Vol] Automated basophil count 0.0-0.1 [facility] Basophils/100 WBC Auto (Bld) on 12-02-2024 Basophils/100 WBC (Bld) Automated basophil % 0.2-2.0 [facility] Eosinophils/100 WBC Auto (Bl d)on 12-02-2024 Eosinophils/100 WBC (Bld) Automated eosinophil % 0.9-7.0 [facility] Erythrocyte distribution wid th Auto (RBC) [Ratio]on 12-02-2024 Erythrocyte distribution width (RBC) [Ratio] Erythrocyte distribution width [Ratio] by Automated count 11.0-15.0 [facility] Estimated glomerular filtrat ion rate (GFR) non- Americanon 12-02-2024 GFR/1.73 sq M.predicted among non-blacks MDRD (S/P/Bld) [Vol rate/Area] Estimated glomerular filtration rate (GFR) non- >=60 mL/min/1.73m 2 [facility] Globulin Calc (S) [Mass/Vol] on 12-02-2024 Globulin (S) [Mass/Vol] Serum globulin measurement by calculation (mass/volume) [facility] Hematocrit Auto (Bld) [Volum e fraction]on 12-02-2024 Hematocrit (Bld) [Volume fraction] Hematocrit [Volume Fraction] of Blood by Automated count 42.0-54.0 [facility] Hemoglobin [Mass/volume] in Bloodon 12-02-2024 Hemoglobin (Bld) [Mass/Vol] Hemoglobin [Mass/volume] in Blood 14.0-18.0 [facility] - Chemistry and C hemistry - challengeon 12-02-2024 Albumin [Mass/Vol] 3.9 g/dL 3.4-5.0 [facility] ALP [Catalytic activity/Vol] 70 U/L 46-116 [facility] ALT [Catalytic activity/Vol] 38 U/L 16-63 [facility] AST [Catalytic activity/Vol] 22 U/L 15-37 [facility] Bilirubin [Mass/Vol] 0.3 mg/dL 0.2-1.0 [facility] Calcium [Mass/Vol] 9.1 mg/dL 8.5-10.1 [facility] Chloride [Moles/Vol] 102 mmol/L 98-107 [facility] CO2 [Moles/Vol] 29.7 mmol/L 21.0-32.0 [facility] Creatinine [Mass/Vol] 1.10 mg/dL 0.70-1.30 [facility] GFR/1.73 sq M.predicted MDRD (S/P/Bld) [Vol rate/Area] mL/min/{1.73_m2} >=60 mL/min/1.73m 2 [facility] Glucose [Mass/Vol] 121 mg/dL High 74-106 [facility] Comment on above: SPECIMEN SLIGHTLY LI PEMIC Potassium [Moles/Vol] 3.1 mmol/L Low 3.5-5.1 [facility] Protein [Mass/Vol] 7.6 g/dL 6.4-8.2 [facility] Sodium [Moles/Vol] 143 mmol/L 136-145 [facility] Urea nitrogen [Mass/Vol] 18.0 mg/dL 7.0-18.0 [facility] Urea nitrogen/Creatinine [Mass ratio] 16.4 mg/mg [facility] - Hematology and Cell countson 12-02-2024 Immature granulocytes/100 WBC (Bld) 0.3 % 0.0-0.5 [facility] Leukocytes [#/volume] correc sujata for nucleated erythrocytes in Blood by Automated counon 12-02-2024 WBC corrected for nucl RBC Auto (Bld) [#/Vol] Leukocytes [#/volume] corrected for nucleated erythrocytes in Blood by Automated coun 4.0-11.0 [facility] Lymphocytes Auto (Bld) [#/Vo l]on 12-02-2024 Lymphocytes (Bld) [#/Vol] Lymphocytes [#/volume] in Blood by Automated count 1.2-3.8 [facility] Lymphocytes/100 WBC Auto (Bl d)on 12-02-2024 Lymphocytes/100 WBC (Bld) Lymphocytes/100 leukocytes in Blood by Automated count 20.5-60.0 [facility] MCH Auto (RBC) [Entitic mass ]on 12-02-2024 MCH (RBC) [Entitic mass] MCH [Entitic mass] by Automated count 25.9-34.0 [facility] MCHC Auto (RBC) [Mass/Vol]on 12-02-2024 MCHC (RBC) [Mass/Vol] MCHC [Mass/volume] by Automated count 29.9-35.2 [facility] MCV Auto (RBC) [Entitic vol] on 12-02-2024 MCV (RBC) [Entitic vol] MCV [Entitic volume] by Automated count 80.0-94.0 [facility] Monocytes Auto (Bld) [#/Vol] on 12-02-2024 Monocytes (Bld) [#/Vol] Automated blood monocyte count 0.3-0.8 [facility] Monocytes/100 WBC Auto (Bld) on 12-02-2024 Monocytes/100 WBC (Bld) Automated monocyte % 1.7-12.0 [facility] Neutrophils Auto (Bld) [#/Vo l]on 12-02-2024 Neutrophils (Bld) [#/Vol] Neutrophils [#/volume] in Blood by Automated count 1.4-6.5 [facility] Neutrophils/100 WBC Auto (Bl d)on 12-02-2024 Neutrophils/100 WBC (Bld) Automated neutrophil % 43.0-75.0 [facility] No Panel Informationon 12-02 Eosinophils # (Auto) 0.3 10 3/uL 0.0-0.7 [facility] Immature Granulocyte # (Auto) 0.02 10 3/uL 0.00-0.03 [facility] Troponin I High Sensitivity 5.7 pg/mL 4.0-76.1 [facility] Comment on above: CUT-OFF POINTS HAVE BEEN ESTABLISHED BASED ON THE FOURTHUNIVERSAL DEFINITION OF MYOCARDIAL INFARCTION. THE UPPERREFERENCE LIMIT (URL) OF TROPONIN, DEFINED THE 99THPERCENTILE OF cTnI DISTRIBUTION IN A REFERENCE POPULATION,HAS BEEN CONFIRMED THE DECISION THRESHOLD FOR MIDIAGNOSIS.99TH PERCENTILE = 76.2 PG/MLNOTE: HIGH-SENSITIVITY TROPONIN ASSAY IS NOT INTENDED TO BEUSED IN ISOLATION BUT SHOULD BE INTERPRETED IN CONJUNCTIONWITH OTHER DIAGNOSTIC AND CLINICAL INFORMATION. Platelet mean volume Auto (B ld) [Entitic vol]on 12-02-2024 Platelet mean volume (Bld) [Entitic vol] Platelet mean volume [Entitic volume] in Blood by Automated count Low 9.5-13.5 [facility] Platelets Auto (Bld) [#/Vol] on 12-02-2024 Platelets (Bld) [#/Vol] Platelets [#/volume] in Blood by Automated count 150-450 [facility] RBC Auto (Bld) [#/Vol]on RBC (Bld) [#/Vol] Erythrocytes [#/volume] in Blood by Automated count 4.70-6.10 [facility] Serum or plasma albumin/glob ulin mass ratioon 12-02-2024 Albumin/Globulin [Mass ratio] Serum or plasma albumin/globulin mass ratio [facility] Serum or plasma anion gap de terminationon 12-02-2024 Anion gap [Moles/Vol] Serum or plasma anion gap determination [facility] Basophils Auto (Bld) [#/Vol] on 06-05-2024 Basophils (Bld) [#/Vol] 0.0 10 3/uL 0.0-0.1 [facility] Basophils/100 WBC Auto (Bld) on 06-05-2024 Basophils/100 WBC (Bld) 0.5 % 0.2-2.0 [facility] Cholesterol in LDL Calc [Mas s/Vol]on 06-05-2024 Cholesterol in LDL [Mass/Vol] 138.0 mg/dL [facility] Comment on above: <100 mg/dl [id number] 0-129 mg/dl NEAR OR ABOVE [id number] mg/dl BORDERLINE [id number] mg/dl HIGH>190 mg/dl VERY HIGH Cholesterol in VLDL Calc [Ma ss/Vol]on 06-05-2024 Cholesterol in VLDL [Mass/Vol] 20.6 mg/dL [facility] Eosinophils/100 WBC Auto (Bl d)on 06-05-2024 Eosinophils/100 WBC (Bld) 3.4 % 0.9-7.0 [facility] Erythrocyte distribution wid th Auto (RBC) [Ratio]on 06-05-2024 Erythrocyte distribution width (RBC) [Ratio] 12.3 % 11.0-15.0 [facility] Estimated glomerular filtrat ion rate (GFR) non- Americanon 06-05-2024 GFR/1.73 sq M.predicted among non-blacks MDRD (S/P/Bld) [Vol rate/Area] mL/min/{1.73_m2} >=60 [facility] Globulin Calc (S) [Mass/Vol] on 06-05-2024 Globulin (S) [Mass/Vol] 3.6 g/dL [facility] Hematocrit Auto (Bld) [Volum e fraction]on 06-05-2024 Hematocrit (Bld) [Volume fraction] 48.7 % 42.0-54.0 [facility] Hemoglobin [Mass/volume] in Bloodon 06-05-2024 Hemoglobin (Bld) [Mass/Vol] 16.7 g/dL 14.0-18.0 [facility] - Chemistry and C hemistry - challengeon 06-05-2024 Albumin [Mass/Vol] 4.1 g/dL 3.4-5.0 [facility] ALP [Catalytic activity/Vol] 64 U/L 46-116 [facility] ALT [Catalytic activity/Vol] 29 U/L 16-63 [facility] AST [Catalytic activity/Vol] 20 U/L 15-37 [facility] Bilirubin [Mass/Vol] 0.8 mg/dL 0.2-1.0 [facility] Calcium [Mass/Vol] 9.1 mg/dL 8.5-10.1 [facility] Chloride [Moles/Vol] 101 mmol/L 98-107 [facility] Cholesterol [Mass/Vol] 210 mg/dL High <=200 [facility] Cholesterol in HDL [Mass/Vol] 52 mg/dL 40-60 [facility] Comment on above: > or =60 mg/dl - LOW CARDIOVASCULAR RISK<40 mg/dl - HIGH CARDIOVASCULAR RISK CO2 [Moles/Vol] 28.5 mmol/L 21.0-32.0 [facility] Creatinine [Mass/Vol] 0.98 mg/dL 0.70-1.30 [facility] GFR/1.73 sq M.predicted MDRD (S/P/Bld) [Vol rate/Area] mL/min/{1.73_m2} >=60 [facility] Glucose [Mass/Vol] 84 mg/dL 74-106 [facility] Potassium [Moles/Vol] 3.7 mmol/L 3.5-5.1 [facility] Protein [Mass/Vol] 7.7 g/dL 6.4-8.2 [facility] Sodium [Moles/Vol] 137 mmol/L 136-145 [facility] Triglyceride [Mass/Vol] 103 mg/dL <=150 [facility] TSH Qn 2.811 m[IU]/L 0.358-3.740 [facility] Urea nitrogen [Mass/Vol] 20.0 mg/dL High 7.0-18.0 [facility] Urea nitrogen/Creatinine [Mass ratio] 20.4 mg/mg [facility] Laboratory - Hematology and Cell countson 06-05-2024 Immature granulocytes/100 WBC (Bld) 0.3 % 0.0-0.5 [facility] Leukocytes [#/volume] correc sujata for nucleated erythrocytes in Blood by Automated counon 06-05-2024 WBC corrected for nucl RBC Auto (Bld) [#/Vol] 6.2 10 3/uL 4.0-11.0 [facility] Lymphocytes Auto (Bld) [#/Vo l]on 06-05-2024 Lymphocytes (Bld) [#/Vol] 2.2 10 3/uL 1.2-3.8 [facility] Lymphocytes/100 WBC Auto (Bl d)on 06-05-2024 Lymphocytes/100 WBC (Bld) 35.6 % 20.5-60.0 [facility] MCH Auto (RBC) [Entitic mass ]on 06-05-2024 MCH (RBC) [Entitic mass] 30.5 pg 25.9-34.0 [facility] MCHC Auto (RBC) [Mass/Vol]on 06-05-2024 MCHC (RBC) [Mass/Vol] 34.3 g/dL 29.9-35.2 [facility] MCV Auto (RBC) [Entitic vol] on 06-05-2024 MCV (RBC) [Entitic vol] 88.9 fL 80.0-94.0 [facility] Monocytes Auto (Bld) [#/Vol] on 06-05-2024 Monocytes (Bld) [#/Vol] 0.6 10 3/uL 0.3-0.8 [facility] Monocytes/100 WBC Auto (Bld) on 06-05-2024 Monocytes/100 WBC (Bld) 9.1 % 1.7-12.0 [facility] Neutrophils Auto (Bld) [#/Vo l]on 06-05-2024 Neutrophils (Bld) [#/Vol] 3.2 10 3/uL 1.4-6.5 [facility] Neutrophils/100 WBC Auto (Bl d)on 06-05-2024 Neutrophils/100 WBC (Bld) 51.1 % 43.0-75.0 [facility] No Panel Informationon 06-05 Eosinophils # (Auto) 0.2 10 3/uL 0.0-0.7 [facility] Immature Granulocyte # (Auto) 0.02 10 3/uL 0.00-0.03 [facility] Platelet mean volume Auto (B ld) [Entitic vol]on 06-05-2024 Platelet mean volume (Bld) [Entitic vol] 9.2 fL Low 9.5-13.5 [facility] Platelets Auto (Bld) [#/Vol] on 06-05-2024 Platelets (Bld) [#/Vol] 339 10 3/uL 150-450 [facility] RBC Auto (Bld) [#/Vol]on RBC (Bld) [#/Vol] 5.48 10 6/uL 4.70-6.10 [facility] Serum or plasma albumin/glob ulin mass ratioon 06-05-2024 Albumin/Globulin [Mass ratio] 1.1 {ratio} [facility] Serum or plasma anion gap de terminationon 06-05-2024 Anion gap [Moles/Vol] 11.2 mmol/L [facility] Serum or plasma total choles terol/high density lipoprotein (HDL) cholesterol mass florence 06-05-2024 Cholesterol.total/Ch olesterol in HDL [Mass ratio] 4.0 {ratio} [facility] Comment on above: 3.3 - 4.4 LOW RISK4. 4 - 7.1 AVERAGE RISK7.1 - 11.0 MODERATE RISK>11.0 HIGH RISK POST VASEC SCREENon 07-08-20 23 Collection time (Stephany) [Date/time] 1130 Normal [facility] Comment on above: Order Comment: Speci men Type: SEMINAL FLUID SPECIMEN Ordering Facility: [facility] Address: [address] [place] [address] [place] [address] Result Comment: 1131 Performed By: #### S EPOST #### [facility] CLIA [id number] [facility] [place] [address] Color (Stephany) Friedman Opalescent Normal [facility] Comment on above: Order Comment: Speci men Type: SEMINAL FLUID SPECIMEN Ordering Facility: [facility] Address: [address] [address] Performed By: #### S EPOST #### [facility] CLIA [id number] [address] [place] [address]. [place] [address] COMMENT POST VASEC No sperm seen on wet preps. Normal [facility] Comment on above: Order Comment: Speci men Type: SEMINAL FLUID SPECIMEN Ordering Facility: [facility] Address: [address] [address] Performed By: #### S EPOST #### [facility] CLIA [id number] [address] [place] [address]. [place] [address] pH (Stephany) 7.6 Normal >=7.2 [facility] Comment on above: Order Comment: Speci men Type: SEMINAL FLUID SPECIMEN Ordering Facility: [facility] Address: [address] [address] Performed By: #### S EPOST #### [facility] CLIA [id number] [address] [place] [address]. [place] [address] POST VASECTOMY SCREEN Pass per AUA guidelines (<=100,000 non-motile sperm/mL ) Normal Pass per AUA guidelines (<=100,000 non-motile sperm/mL ) [facility] Comment on above: Order Comment: Speci men Type: SEMINAL FLUID SPECIMEN Ordering Facility: [facility] Address: [address] [address] Performed By: #### S EPOST #### [facility] CLIA [id number] [address] [place] [address]. [place] [address] Sexual abstinence duration [Time] 4.0 Days Normal [facility] Comment on above: Order Comment: Speci men Type: SEMINAL FLUID SPECIMEN Ordering Facility: [facility] Address: [address] [address] Performed By: #### S EPOST #### [facility] CLIA [id number] [facility] [place] [address] Specimen volume (Stephany) 6.00 mL Normal >=1.50 [facility] Comment on above: Order Comment: Speci men Type: SEMINAL FLUID SPECIMEN Ordering Facility: [facility] Address: [address] [place] [address] Performed By: #### S EPOST #### [facility] CLIA [id number] [place] [address] Spermatozoa Motile/100 spermatozoa (Stephany) No motile sperm seen Normal No motile sperm seen [facility] Comment on above: Order Comment: Speci men Type: SEMINAL FLUID SPECIMEN Ordering Facility: [facility] Address: [address] [place] [address] Performed By: #### S EPOST #### [facility] CLIA [id number] [address] [place] [address] TIME TO ANALYSIS 24 Minutes Normal 0-60 [facility] Comment on above: Order Comment: Speci men Type: SEMINAL FLUID SPECIMEN Ordering Facility: [facility] Address: [address] [place] [address] Performed By: #### S EPOST #### [facility] CLIA [id number] [address] [place] [address] CNOVon 04-01-2023 CNOV Office Visit (UROLAV) AMNA AMES ([id number]) 1985 M Date Time Provider Department 04/01/23 8:00 AM ARISTEO LANGE UROLAV During your visit today, we recorded the [...] scale. 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 Pt. escorted pt to lobby. Gait steady. Pt stated no further questions at this time. Lexy Glassrz CABLE WIRER 04/01/2023 8:22 AM Signed Post-Operative Instructions for [...] be worse than the other. Contact Numbers: Tabitha Greco: [phone] - ask to speak to or leave a message for the urology nurses Lenora Peters: [phone] - ask to speak to or leave a message for the urology nurses Main Rodney: [phone] Activity Level: No heavy lifting >20 lbs or vigorous activity for 1 week OK to resume sexual activity in 1 week Medications: You can take wokw-ygf-ytcahij tylenol and/or ibuprofen as needed for pain. For the first 24 hours, I recommend taking dzbz-jiw-mxedtgc dosing of tylenol alternating with ibuprofen every 4 hours (For Example, 8 AM tylenol, 12 PM ibuprofen, 4 PM Tylenol, 8 PM Ibuprofen). All normal medications can be resumed after the procedure Semen Analysis: Please get a semen eusebio (more content not included)... Normal [facility] Cyrus 12-27-2022 GUSTAVO Telephone (UROLAV) AMNA AMES ([id number]) 1985 M Date Time Provider Department 12/27/22 ARISTEO LANGE During your visit today, we recorded the following information about you: Donya Mishra Kerwin Pss 12/27/2022 11:17 AM Signed Patient calling. Had a VV with Dr Lange on 12/21/22. Was waiting to get a call to schedule vasectomy, however, having some misgivings on have Dr Lange do it for various reasons. Please contact to schedule with another provider. If he needs seen again, please advise, would like to stay with [facility] for the procedure if possible. Jacek Small [...] Encounter Status:Closed by JACEK SMALL on 12/28/22 Normal [facility] CBC AUTO DIFFon 06-07-2022 BASO # 0.0 103/ul Normal 0.0-0.1 [facility] Comment on above: Performed By: #### H FPFCBC #### [facility] [address] [place] [address] Dr. lBaire Wilson Basophils/100 WBC (Bld) 0.5 % Normal 0.2-2.0 [facility] Comment on above: Performed By: #### H FPFCBC #### [facility] [address] [place] [address] Dr. Blaire Wilson EO # 0.2 103/ul Normal 0.0-0.7 [facility] Comment on above: Performed By: #### H FPFCBC #### [facility] [address] [place] [address] Dr. Blaire Wilson Eosinophils/100 WBC (Bld) 3.1 % Normal 0.9-7.0 [facility] Comment on above: Performed By: #### H FPFCBC #### [facility] [address] [place] [address] Dr. Blaire Wilson Erythrocyte distribution width (RBC) [Ratio] 12.7 % Normal 11.0-15.0 [facility] Comment on above: Performed By: #### H FPFCBC #### [facility] [address] [place] [address] Dr. Blaire Wilson Hematocrit (Bld) [Volume fraction] 45.9 % Normal 42.0-54.0 [facility] Comment on above: Performed By: #### H FPFCBC #### [facility] [address] [place] [address] Dr. Blaire Wilson Hemoglobin (Bld) [Mass/Vol] 15.3 g/dL Normal 14.0-18.0 [facility] Comment on above: Performed By: #### H FPFCBC #### [facility] [address] [place] [address] Dr. Blaire Wilson IG # 0.01 10e3/ul Normal 0.00-0.03 [facility] Comment on above: Performed By: #### H FPFCBC #### [facility] [address] [place] [address] Dr. Blaire Wilson IG % 0.2 % Normal 0.0-0.5 [facility] Comment on above: Performed By: #### H FPFCBC #### [facility] [address] [place] [address] Dr. Blaire Wilson LYMPH # 2.0 103/ul Normal 1.2-3.8 [facility] Comment on above: Performed By: #### H FPFCBC #### [facility] [address] [place] [address] Dr. Blaire Wilson Lymphocytes/100 WBC (Bld) 36.3 % Normal 20.5-60.0 [facility] Comment on above: Performed By: #### H FPFCBC #### [facility] [address] [place] [address] Dr. Blaire Wilson MCH (RBC) [Entitic mass] 29.6 pg Normal 25.9-34.0 [facility] Comment on above: Performed By: #### H FPFCBC #### [facility] [address] [place] [address] Dr. Blaire Wilson MCHC (RBC) [Mass/Vol] 33.3 g/dL Normal 29.9-35.2 [facility] Comment on above: Performed By: #### H FPFCBC #### [facility] [address] [place] [address] Dr. Blaire Wilson MCV (RBC) [Entitic vol] 88.8 fL Normal 80.0-94.0 [facility] Comment on above: Performed By: #### H FPFCBC #### [facility] [address] [place] [address] Dr. Blaire Wilson MONO # 0.5 103/ul Normal 0.3-0.8 [facility] Comment on above: Performed By: #### H FPFCBC #### [facility] [address] [place] [address] Dr. Blaire Wilson Monocytes/100 WBC (Bld) 8.4 % Normal 1.7-12.0 [facility] Comment on above: Performed By: #### H FPFCBC #### [facility] [address] [place] [address] Dr. Blaire Wilson NEUT # 2.9 103/ul Normal 1.4-6.5 [facility] Comment on above: Performed By: #### H FPFCBC #### [facility] [address] [place] [address] Dr. Blaire Wilson Neutrophils/100 WBC (Bld) 51.5 % Normal 43.0-75.0 [facility] Comment on above: Performed By: #### H FPFCBC #### [facility] [address] [place] [address] Dr. Blaire Wilson Platelet mean volume (Bld) [Entitic vol] 9.1 fL Critically low 9.5-13.5 [facility] Comment on above: Performed By: #### H FPFCBC #### [facility] [address] [place] [address] Dr. Blaire Wilson PLT 340 103/ul Normal 150-450 [facility] Comment on above: Performed By: #### H FPFCBC #### [facility] [address] [place] [address] Dr. Blaire Wilson RBC 5.17 106/ul Normal 4.70-6.10 [facility] Comment on above: Performed By: #### H FPFCBC #### [facility] [address] [place] [address] Dr. Blaire Wilson WBC 5.6 103/ul Normal 4.0-11.0 [facility] Comment on above: Performed By: #### H FPFCBC #### [facility] [address] [place] [address] Dr. Blaire Wilson [facility] PROFILEon 022 Albumin [Mass/Vol] 4.0 g/dL Normal 3.4-5.[address] [facility] Comment on above: Performed By: #### H FPF #### [facility] [address] [place] [address] Dr. Blaire Wilson Albumin/Globulin [Mass ratio] 1.1 {ratio} Normal [facility] Comment on above: Performed By: #### H FPF #### [facility] [address] [place] [address] Dr. Blaire Wilson ALP [Catalytic activity/Vol] 60 U/L Normal 46-116 [facility] Comment on above: Performed By: #### H FPF #### [facility] [address] [place] [address] Dr. Blaire Wilson ALT [Catalytic activity/Vol] 21 U/L Normal 16-63 [facility] Comment on above: Performed By: #### H FPF #### [facility] [address] [place] [address] Dr. Blaire Wilson AST [Catalytic activity/Vol] 15 U/L Normal 15-37 [facility] Comment on above: Performed By: #### H FPF #### [facility] [address] [place] [address] Dr. Blaire Wilson Bilirubin [Mass/Vol] 0.4 mg/dL Normal 0.2-1.0 [facility] Comment on above: Performed By: #### H FPF #### [facility] [address] [place] [address] Dr. Blaire Wilson Calcium [Mass/Vol] 8.9 mg/dL Normal 8.5-10.[address] [facility] Comment on above: Performed By: #### H FPF #### [facility] [address] [place] [address] Dr. Blaire Wilson Chloride [Moles/Vol] 104 mmol/L Normal 98-107 [facility] Comment on above: Performed By: #### H FPF #### [facility] [address] [place] [address] Dr. Blaire Wilson CHOL-HDL RATIO NORM SEE BELOW Normal [facility] Comment on above: Result Comment: 3.3 - 4.4 LOW RISK 4.4 - 7.1 AVERAGE RISK 7.1 - 11.0 MODERATE RISK >11.0 HIGH RISK Performed By: #### H FPF #### [facility] [address] [place] [address] Dr. Blaire Wilson Cholesterol [Mass/Vol] 176 mg/dL Normal <=200 [facility] Comment on above: Performed By: #### H FPF #### [facility] [address] [place] [address] Dr. Blaire Wilson Cholesterol in HDL [Mass/Vol] 48 mg/dL Normal 40-60 [facility] Comment on above: Performed By: #### H FPF #### [facility] [address] [place] [address] Dr. Blaire Wilson Cholesterol in LDL [Mass/Vol] 113.6 mg/dL Normal [facility] Comment on above: Performed By: #### H FPF #### [facility] [address] [place] [address] Dr. Blaire Wilson Cholesterol.total/Ch olesterol in HDL [Mass ratio] 3.7 {ratio} Normal [facility] Comment on above: Performed By: #### H FPF #### [facility] [address] [address] [address] Blaire Wilson CO2 [Moles/Vol] 28.2 mmol/L Normal 21.0-32.0 [facility] Comment on above: Performed By: #### H FPF #### [facility] [address] [address] [address] Blaire Wilson Creatinine [Mass/Vol] 0.90 mg/dL Normal 0.70-1.30 [facility] Comment on above: Performed By: #### H FPF #### [facility] [address] [place] [address] Dr. Blaire Wilson Globulin (S) [Mass/Vol] 3.5 g/dL Normal [facility] Comment on above: Performed By: #### H FPF #### [facility] [address] [place] [address] Dr. Blaire Wilson Glucose [Mass/Vol] 91 mg/dL Normal 74-106 [facility] Comment on above: Performed By: #### H FPF #### [facility] [address] [place] [address] Dr. Blaire Wilson HDL NORMAL > or = 60 mg/dl - LOW CARDIOVASCULAR RISK <40 mg/dl - HIGH CARDIOVASCULAR RISK Normal [facility] Comment on above: Performed By: #### H FPF #### [facility] [address] [place] [address] Dr. Blaire Wilson LDL CALC NORMAL SEE BELOW Normal [facility] Comment on above: Result Comment: <100 mg/dl OPTIMAL 100 - 129 mg/dl NEAR OR ABOVE OPTIMAL 130 - 159 mg/dl BORDERLINE HIGH 160 - 189 mg/dl HIGH >190 mg/dl VERY HIGH Performed By: #### H FPF #### [facility] [address] [place] [address] Dr. Blaire Wilson Potassium [Moles/Vol] 4.0 mmol/L Normal 3.5-5.1 [facility] Comment on above: Performed By: #### H FPF #### [facility] [address] [address] [address] Blaire Wilson Protein [Mass/Vol] 7.5 g/dL Normal 6.4-8.[address] [facility] Comment on above: Performed By: #### H FPF #### [facility] [address] [address] [address] Blaire Wilson Sodium [Moles/Vol] 141 mmol/L Normal 136-[address] [facility] Comment on above: Performed By: #### H FPF #### [facility] [address] [address] [address] Blaire Wilson Triglyceride [Mass/Vol] 72 mg/dL Normal <=150 [facility] Comment on above: Performed By: #### H FPF #### [facility] [address] [address] [address] Blaire Wilson TSH 1.730 uIU/mL Normal 0.358-3.740 [facility] Comment on above: Performed By: #### H FPF #### [facility] [address] [address] [address] Blaire Wilson Urea nitrogen [Mass/Vol] 19.0 mg/dL Critically high 7.0-18.0 [facility] Comment on above: Performed By: #### H FPF #### [facility] [address] [address] [address] Blaire Wilson Urea nitrogen/Creatinine [Mass ratio] 21.1 mg/mg Normal [facility] Comment on above: Performed By: #### H FPF #### [facility] [address] [address] [address] Blaire Wilson VLDL CALC 14.4 mg/dL Normal [facility] Comment on above: Performed By: #### H FPF #### [facility] [address] [address] [address] Blaire Wilson Coding Summary.on 04-20-2020 Coding Summary. CODING DATE: 04/20/2020 FINAL [facility] STATUS: Home (Routine DC) PAYOR: Medical Houghton ADMIT DX: REASON FOR VISIT DX: Z01.84 [...] Humphrey Date Saved: 04/20/2020 03:[address] [facility] Physician Orderon 04-03-2020 Physician Order [id number] 5#1.00CD:[address] [facility] Coding Summary.on 10-07-2019 Coding Summary. CODING DATE: 10/07/2019 FINAL [facility] STATUS: Home (Routine DC) PAYOR: Medical Houghton APC DESCRIPTION 5691 Level 1 Drug Administration [...] Revised Date Saved: 10/07/2019 12:[address] [facility] Amylaseon 10-04-2019 Amylase [Catalytic activity/Vol] 73 unit/L Normal 25-157 [facility] Comment on above: Performed By: #### 1 [id number], 6663852, 0443765, 3063748, 6320448, 4591765 #### [facility] [address] [place] [address] 00917 Auto Diffon 10-04-2019 Basophils/100 WBC (Bld) 0.1 % Normal 0.0-2.0 [facility] Comment on above: Order Comment: Order Added by Discern Expert. Performed By: #### 1 [id number], 6810797, 0331722, 1482944, 3224691, 8876869 #### [facility] [address] [place] [address] 44164 Basophils/Leukocytes Auto (Bld) [Pure # fraction] 0.0 E9/L Normal 0.0-0.2 [facility] Comment on above: Order Comment: Order Added by Discern Expert. Performed By: #### 1 9729920, 5181086, 6586857, 9554263, 5503791, 3940836 #### [facility] [address] [place] [address] 04314 Eosinophils/100 WBC (Bld) 0.1 % Normal 0.0-8.0 [facility] Comment on above: Order Comment: Order Added by Discern Expert. Performed By: #### 1 4987251, 3719597, 9593856, 4149561, 5966200, 0506522 #### [facility] [address] [place] [address] 04809 Eosinophils/Leukocyt es Auto (Bld) [Pure # fraction] 0.0 E9/L Normal 0.0-0.5 [facility] Comment on above: Order Comment: Order Added by Discern Expert. Performed By: #### 1 3650689, 9961803, 5676150, 5433632, 2670200, 3580889 #### [facility] [address] [place] [address] 59621 Lymphocytes/100 WBC (Bld) 1.3 % Low 14.0-50.0 [facility] Comment on above: Order Comment: Order Added by Discern Expert. Performed By: #### 1 2581191, 7045208, 2846916, 0511578, 2616240, 2608076 #### [facility] [address] [place] [address] 64692 Lymphocytes/Leukocyt es Auto (Bld) [Pure # fraction] 0.2 E9/L Low 1.0-4.0 [facility] Comment on above: Order Comment: Order Added by Discern Expert. Performed By: #### 1 5829599, 3416870, 6148012, 7890423, 0739645, 6080909 #### [facility] [address] [place] [address] 37058 Monocytes/100 WBC (Bld) 5.6 % Normal 4.0-14.0 [facility] Comment on above: Order Comment: Order Added by Discern Expert. Performed By: #### 1 6198364, 7927830, 8579975, 8376201, 7426917, 9876375 #### [facility] [address] [place] [address] 14007 Monocytes/Leukocytes Auto (Bld) [Pure # fraction] 0.8 E9/L Normal 0.2-1.0 [facility] Comment on above: Order Comment: Order Added by Discern Expert. Performed By: #### 1 5291080, 6407746, 9157895, 7423788, 6848549, 9232545 #### [facility] [address] [place] [address] 44840 Neutrophils/100 WBC (Bld) 92.9 % High 36.0-75.0 [facility] Comment on above: Order Comment: Order Added by Discern Expert. Performed By: #### 1 8641880, 9182761, 3856409, 5402717, 1337679, 4455481 #### [facility] [address] [place] [address] 84257 Neutrophils/Leukocyt es Auto (Bld) [Pure # fraction] 13.6 E9/L High 2.0-7.5 [facility] Comment on above: Order Comment: Order Added by Discern Expert. Performed By: #### 1 4833362, 3208114, 6500331, 8941482, 5724508, 5628152 #### [facility] [address] [place] [address] 75805 CBC w/ Auto Diffon 9 Erythrocyte distribution width (RBC) [Ratio] 13.2 % Normal 10.9-14.2 [facility] Comment on above: Performed By: #### 1 6635626, 1376835, 4403403, 6628290, 9641017, 5715198 #### [facility] [address] [place] [address] 00764 Hematocrit (Bld) [Volume fraction] 52.3 % High 37.7-49.0 [facility] Comment on above: Performed By: #### 1 9502757, 2135622, 0213130, 3521534, 4102533, 5609453 #### [facility] [address] [place] [address] 54294 Hemoglobin (Bld) [Mass/Vol] 18.0 g/dL High 13.5-17.5 [facility] Comment on above: Performed By: #### 1 7416625, 7921364, 7228172, 6334999, 9314215, 0042277 #### [facility] [address] [place] [address] 82012 MCH (RBC) [Entitic mass] 30.1 pg Normal 27.0-34.0 [facility] Comment on above: Performed By: #### 1 1579609, 1275157, 3596540, 9009161, 6383899, 6356193 #### [facility] [address] [place] [address] 58538 MCHC (RBC) [Mass/Vol] 34.4 g/dL Normal 31.4-36.0 [facility] Comment on above: Performed By: #### 1 1689229, 1367419, 9643957, 0834408, 3650549, 4447291 #### [facility] [address] [place] [address] 81787 MCV (RBC) [Entitic vol] 87.4 fL Normal 80.0-100.0 [facility] Comment on above: Performed By: #### 1 9370295, 0154496, 6158505, 5851365, 6780835, 7423622 #### [facility] [address] [place] [address] 11872 Platelet mean volume (Bld) [Entitic vol] 7.2 fL Normal 6.4-10.8 [facility] Comment on above: Performed By: #### 1 3689473, 9790603, 3823676, 8920252, 9242132, 1019985 #### [facility] [address] [place] [address] 83827 Platelets (Bld) [#/Vol] 334.0 E9/L Normal 150.0-500.0 [facility] Comment on above: Performed By: #### 1 1926155, 6311889, 1316771, 4726103, 6854603, 1642990 #### [facility] [address] [place] [address] 43822 RBC (Bld) [#/Vol] 6.0 E12/L High 4.3-5.9 [facility] Comment on above: Performed By: #### 1 2864529, 8650666, 5999478, 3227772, 2573735, 7599804 #### [facility] [address] [place] [address] 35153 WBC corrected for nucl RBC Auto (Bld) [#/Vol] 14.7 E9/L High 4.0-11.0 [facility] Comment on above: Performed By: #### 1 2204652, 9414624, 8405455, 2960952, 2322057, 0766994 #### [facility] [address] [place] [address] 58731 CMPon 10-04-2019 Albumin [Mass/Vol] 5.2 g/dL High 3.3-5.0 [facility] Comment on above: Performed By: #### 1 2262455, 4092713, 9123861, 4925341, 6578347, 0152361 #### [facility] [address] [place] [address] 27906 Albumin [Mass/Vol] 1.4 g/dL Normal 1.1-2.2 [facility] Comment on above: Performed By: #### 1 4045812, 5400690, 1474762, 9080339, 5151217, 4093434 #### [facility] [address] [place] [address] 22652 ALP [Catalytic activity/Vol] 57 Int._Unit/L Normal 21-98 [facility] Comment on above: Performed By: #### 1 4282436, 4985047, 8990567, 8071642, 9416557, 9415254 #### [facility] [address] [place] [address] ALT No additional P-5'-P [Catalytic activity/Vol] 21 Int._Unit/L Normal 6-46 [facility] Comment on above: Performed By: #### 1 4701248, 8757453, 5356533, 4451765, 2033870, 8807286 #### [facility] [address] [place] [address] AST [Catalytic activity/Vol] 23 Int._Unit/L Normal 5-43 [facility] Comment on above: Performed By: #### 1 1840965, 8417134, 3922660, 9780737, 0939512, 6174570 #### [facility] [address] [place] [address] 55059 Bilirubin [Mass/Vol] 1.6 mg/dL High 0.0-1.1 [facility] Comment on above: Performed By: #### 1 8577430, 2036781, 3302217, 3194607, 7638082, 9372499 #### [facility] [address] [place] [address] 06986 Creatinine [Mass/Vol] 1.0 mg/dL Normal 0.5-1.3 [facility] Comment on above: Performed By: #### 1 7285274, 0418349, 9877861, 4232581, 8035333, 1030829 #### [facility] [address] [place] [address] Globulin (S) [Mass/Vol] 3.7 g/dL Normal 1.4-4.0 [facility] Comment on above: Performed By: #### 1 4851643, 6125382, 2356782, 5250029, 5660503, 8194180 #### [facility] [address] [place] [address] 54559 Protein [Mass/Vol] 8.9 g/dL High 6.0-7.8 [facility] Comment on above: Performed By: #### 1 3206267, 2659238, 2621893, 8470146, 5173446, 6851257 #### [facility] [address] [place] [address] Urea nitrogen [Mass/Vol] 28 mg/dL High 5-21 [facility] Comment on above: Performed By: #### 1 5439310, 2717827, 5813899, 1958628, 5515320, 7940963 #### [facility] [address] [place] [address] Urea nitrogen/Creatinine [Mass ratio] 28 No Units High 10-20 [facility] Comment on above: Performed By: #### 1 7316432, 9751720, 0405312, 0647368, 4421498, 0889248 #### [facility] [address] [place] [address] Anion gap [Moles/Vol] 16 mmol/L Normal 6-16 [facility] Comment on above: Performed By: #### 1 7393434, 2203532, 1643132, 4550620, 0962370, 8843366 #### [facility] [address] [place] [address] Calcium [Mass/Vol] 9.9 mg/dL Normal 8.9-11.1 [facility] Comment on above: Performed By: #### 1 5820851, 0819260, 1103148, 4758656, 5795632, 1633631 #### [facility] [address] [place] [address] Chloride [Moles/Vol] 103 mmol/L Normal 101-111 [facility] Comment on above: Performed By: #### 1 3026774, 0195691, 7271868, 4624505, 1551120, 2652271 #### [facility] [address] [place] [address] CO2 [Moles/Vol] 25 mmol/L Normal 21-31 [facility] Comment on above: Performed By: #### 1 2762335, 9067340, 1901885, 4009836, 8530599, 4030798 #### [facility] [address] [place] [address] Glucose [Mass/Vol] 145 mg/dL Normal 55-199 [facility] Comment on above: Result Comment: If t his glucose result represents a fasting glucose, interpretation should refer to the following reference range: 55-99 mg/dL Performed By: #### 1 0011410, 0104106, 4137301, 1085042, 4116888, 8946639 #### [facility] [address] [place] [address] Potassium [Moles/Vol] 3.8 mmol/L Normal 3.5-5.3 [facility] Comment on above: Performed By: #### 1 9795251, 0120795, 1456865, 1333503, 6540680, 4789461 #### [facility] [address] [place] [address] 48787 Sodium [Moles/Vol] 140 mmol/L Normal 135-145 [facility] Comment on above: Performed By: #### 1 8668773, 0760848, 3145378, 3984935, 7117742, 2708709 #### [facility] [address] [place] [address] 69194 ED Clinical Summaryon 2018 ED Clinical Summary [address] [address] ED Clinical Summary Person Information Name: AMNA AMES Kathleen/[facility] Age: 34 Years : 1985 Sex: Male Language: [place] PCP: SANKET GONSALVES DO Marital Status: Visit Id: Visit Reason: Diarrhea; Vomiting; VOMITING, [...] 03:41:43 10/04/2019 03:41:43 AD[address]: [address] [place] [address] PHYS DOC NOTES: MEDICAL INFORMATION: Prescriptions Given: New Medications Printed Prescriptions atropine-diphenoxyla te (Lomotil oral tablet) 2 Tablets By Mouth 4 times a day as needed for loose stools. Refills: 0. ondansetron (Zofran ODT 4 mg Tab) 1 Tablets By Mouth 4 times a day. Refills: 0. PATIENT EDUCATION INFORMATION: Instructions: Viral Gastroenteritis Follow up: With: Address: When: SANKET GONSALVES [address] [place] [address] Business (1) In 3 days 10/07/2019 DIAGNOSIS: 1:Gastroenteritis Normal [facility] ED Note-Physicianon 10-04-20 ED Note-Physician Basic Information Time Seen: Michael Mao MD 10/04/2019 00:30 Chief Complaint complains of vomtiing and diarrhea since 1700 tonight. unable to keep anything down. states feels dehydrated History of Present Illness presents with recurrent vomiting and diarrhea for the past 6 hours. Did go to a work [employer] tonight. Others ate same food and reportedly [...] High (10/04/19 00:35:00) Hct: 52.3 % High (10/04/19:35:00) MCV: 87.4 fL (10/04/19:35:00) MCH: 30.1 pg (10/04/19:35:00) MCHC: 34.4 gm/dL (10/04/19 00:35:00) RDW: 13.2 % (10/04/19:35:00) Platelet: 334 E9/L (10/04/19:35:00) MPV: 7.2 fL (10/04/19:35:00) Neutro Auto: 92.9 % High (10/04/19:35:00) Lymph Auto: 1.3 % Low (10/04/19:35:00) [place] Auto: 5.6 % (10/04/19 00:35:00) Eos Auto: 0.1 % (10/04/19:35:00) Basophil Auto: 0.1 % (10/04/19 00:35:00) Neutro Absolute: 13.6 E9/L High (10/04/19:35:00) Lymph Absolute: 0.2 E9/L Low (10/04/19:35:00) [place] Absolute: 0.8 E9/L (10/04/19:35:00) Eos Absolute: 0 E9/L (10/04/19:35:00) Basophil Absolute: 0 E9/L (10/04/19:35:00) Glucose Lvl: 145 mg/dL (10/04/19 00:35:00) BUN: 28 mg/dL High (10/04/19 00:35:00) Creatinine: 1 mg/dL (10/04/19:35:00) eGFR: >60 (10/04/19:35:00) eGFR AA: >60 (10/04/19 00:35:00) BUN/Creat Ratio: 28 High (10/04/19 00:35:00) Sodium Lvl: 140 mmol/L (10/04/19 00:35:00) Potassium Lvl: 3.8 mmol/L (12/15/19 00:35:00) Chloride: 103 mmol/L (10/04/19 00:35:00) CO2: [...] Trace2 Abnormal (10/04/19 01:20:00) UA Glucose: NEGATIVE1 (10/04/19 01:20:00) UA Ketones: 2+ Abnormal (10/04/19 01:20:00) UA Bili: NEGATIVE1 (10/04/19 01:20:00) UA Blood: NEGATIVE1 (10/04/19 01:20:00) UA Nitrite: NEGATIVE1 (10/04/19 01:20:00) UA Urobilinogen: 0.2 (10/04/19 01:20:00) UA Leuk Est: NEGATIVE1 (10/04/19 01:20:00) UA RBC: 0-3 (10/04/19 01:20:00) UA Squam Epithelial: 0-2 (10/04/19 01:20:00) UA WBC: 0-5 (10/04/19 01:20:00) UA Bacteria: Trace2 (10/04/19 01:20:00) UA Mucous: 2+ (10/04/19 01:20:00) Diagnostic Results No qualifying data available. Normal [facility] Comment on above: Result Comment: Elec tronically [...] avoid spreading the virus. ? Only take mvse-eul-esyujru or prescription medicines for pain, discomfort, or fever as directed by your caregiver. Do not give aspirin to children. Antidiarrheal medicines are not recommended. ? Ask your caregiver if you should continue to take your regular prescribed and mkeu-utj-ldkfwnh medicines. ? Keep all follow-up appointments as [...] Document Reviewed: 07/23/2012 ExitCare? Patient Information ?2015 [employer]. This information is not intended to replace advice given to you by your health care provider. Make sure you discuss any questions you have with your health care provider. Normal [facility] ED Patient Summaryon 019 ED Patient Summary [place] [address] Patient Discharge Instructions Person Information Name: AMNA AMES Age: 34 Years Arrival Date: 10/04/2019 00:11:34 Discharge Diagnosis: 1:Gastroenteritis Primary Care Physician: SANKET GONSALVES DO Provider Information Primary Provider: Michael Mao MD Advanced Prize Coordinator:None The exam and treatment you received in the Emergency Department were for an urgent problem and are not intended as complete care. It is important that you follow up with a doctor, nurse practitioner, or physician?s esl instructional assistant for ongoing care. If your symptoms become worse or you do not improve as expected and you are unable to reach your usual health care provider, you should return to the Emergency Department. We are available 24 hours a day. AMNA AMES has been given the following list of patient education materials, prescriptions and follow-up instructions: Follow-up Instructions: With: Address: When: SANKET GONSALVES [address] [place], [place] [id number] [facility] (1) In 3 days 10/07/2019 In the event that this physician does not participate in your insurance network, please consult with your insurance company to find a nearby participating provider. Patient Education Materials: Viral Gastroenteritis A MESSAGE TO ALL PATIENTS REGARDING OPIOIDS PRESCRIPTION OPIOIDS: WHAT YOU NEED TO KNOW Prescription opioids can be used to help relieve wsxyqvxr-kd-goiepv pain and are often prescribed following a [...] be struggling with addiction, tell your health career development engineer and ask for guidance or call SAMHSA?S National Helpline at 1-136-580-ORPI. v Source: [place] Department of Health and Human Services/Center for Disease Control & Prevention [facility] Medications Given: Medication Dose Route [...] a day. Refills: 0. Comment: Pharmacy Information: [facility] [place] Thank you for choosing [facility] Patient Education Materials: Viral Gastroenteritis Viral gastroenteritis [...] avoid spreading the virus. ? Only take ypap-eit-ekdtwur or prescription medicines for pain, discomfort, or fever as directed by your caregiver. Do not give aspirin to children. Antidiarrheal medicines are not recommended. ? Ask your caregiver if you should continue to take your regular prescribed and ziub-yfa-tzwkscs medicines. ? Keep all follow-up appointments as [...] Document Reviewed: 07/23/2012 ExitCare? Patient Information ?2015 [employer]. This information is not intended to replace advice given to you by your health care provider. Make sure you discuss any questions you have with your health care provider. IKWAKU CHRISTOPHER M , have received the following patient education materials/instructio ns and have verbalized understanding: Patient Education Materials: Viral Gastroenteritis Follow-up Instructions: With: Address: When: SANKET GONSALVES [address] [facility], [place] [address] Business (1) In 3 days 10/07/2019 Patient Signature Date Clinician/Nurse Signature Date 10/04/2019 03:41:[address] [facility] Lipase Levelon 10-04-2019 Lipase [Catalytic activity/Vol] 36 unit/L Normal 13-58 [facility] Comment on above: Performed By: #### 1 [id number], [id number], [id number], [id number] #### [facility] [address] [place] [address] Progress Note-Nurseon 2018 Progress Note-Nurse pt drank 32 oz of water with no nausea/vomiting noted. States feels better. Notified Normal [facility] UA With Cult Reflexon 2018 Bacteria LM Ql (Urine sed) TRACE Normal Trace [facility] Comment on above: Performed By: #### 1 [id number] #### [facility] [address] [place] [address] Bilirubin Ql (U) Negative Normal Negative [facility] Comment on above: Performed By: #### 1 [id number] #### [facility] [address] [place] [address] Clarity (U) CLEAR Normal Clear [facility] Comment on above: Performed By: #### 1 [id number] #### [facility] [address] [place] [address] Color (U) YELLOW Normal Yellow [facility] Comment on above: Performed By: #### 1 [id number] #### [facility] [address] [place] [address] Epithelial cells.squamous LM.HPF (Urine sed) [#/Area] 0-2 Normal 0-2 [facility] Comment on above: Performed By: #### 1 [id number] #### [facility] [address] [place] [address] Glucose Test strip (U) [Mass/Vol] Negative Normal Negative [facility] Comment on above: Performed By: #### 1 [id number] #### [facility] [address] [place] [address] Hemoglobin Ql (U) Negative Normal Negative [facility] Comment on above: Performed By: #### 1 [id number] #### [facility] [address] [place] [address] Ketones (U) [Mass/Vol] 2+ Abnormal Negative [facility] Comment on above: Performed By: #### 1 [id number] #### [facility] [address] [place] [address] [place].plasma/Lithi um.RBC (Bld) [Mass ratio] 0-3 Normal 0-3 [facility] Comment on above: Performed By: #### 1 [id number] #### [facility] [address] [place] [address] Mucus Ql (Urine sed) 2+ Normal [facility] Comment on above: Performed By: #### 1 [id number] #### [facility] [address] [place] [address] Nitrite Ql (U) Negative Normal Negative [facility] Comment on above: Performed By: #### 1 [id number] #### [facility] [address] [place] [address] pH (U) 7.0 [pH] 5.0-9.0 [facility] Comment on above: Performed By: #### 1 [id number] #### [facility] [address] [place] [address] Protein (U) [Mass/Vol] TRACE Abnormal Negative [facility] Comment on above: Performed By: #### 1 [id number] #### [facility] [address] [place] [address] Specific gravity (U) [Rel density] 1.020 1.005-1.030 [facility] Comment on above: Performed By: #### 1 [id number] #### [facility] [address] [place] [address] UA Spec Desc Clean Catch Normal [facility] Comment on above: Performed By: #### 1 [id number] #### [facility] [address] [place] [address] Urobilinogen Qn (U) 0.2 {Jennifer'U}/dL Normal 0.0-1.0 [facility] Comment on above: Performed By: #### 1 [id number] #### [facility] [address] [place] [address] WBC Auto Ql (U) Negative Normal Negative [facility] Comment on above: Performed By: #### 1 [id number] #### [facility] [address] [place] [address] WBC LM.HPF (Urine sed) [#/Area] 0-5 Normal 0-5 [facility] Comment on above: Performed By: #### 1 [id number] #### [facility] [address] [place] [address] eGFRon 10-04-2019 GFR/1.73 sq M predicted among blacks MDRD (S/P/Bld) [Vol rate/Area] mL/min/{1.73_m2} Normal >=59 [facility] Comment on above: Order Comment: Order added by Discern Expert. Result Comment: eGFR is race adjusted. AA=. Performed By: #### 1 [id number], [id number], [id number], [id number], [id number], [id number] #### [facility] [address] [place] [address] GFR/1.73 sq M predicted among non-blacks MDRD (S/P/Bld) [Vol rate/Area] mL/min/{1.73_m2} Normal >=59 [facility] Comment on above: Order Comment: Order added by Discern Expert. Result Comment: Ship Fitter ritesh kidney disease could be indicated at eGFR's of less than 60 mL/min/1.73m2. Kidney failure is indicated at less than 15 mL/min/1.73m2. Performed By: #### 1 [id number], [id number], [id number], [id number], [id number], [id number] #### [facility] [address] [place] [address] Vital Signs Date Time Vital Sign Value Performing Clinician Facility 12-08-2024 15:52-0500 Body height 175.26 cm [facility] 12-08-2024 15:52-0500 Body mass index (BMI) [Ratio] 30.2 kg/m2 [facility] 12-08-2024 15:52-0500 Body weight 92.75 kg [facility] 12-08-2024 15:52-0500 Diastolic blood pressure 85 mm[Hg] [facility] 12-08-2024 15:52-0500 Heart rate 71 /min [facility] 12-08-2024 15:52-0500 Respiratory rate 12 /min [facility] 12-08-2024 15:52-0500 Systolic blood pressure 136 mm[Hg] [facility] 06-19-2024 11:16-0400 Body height 175.26 cm [facility] 06-19-2024 11:16-0400 Body mass index (BMI) [Ratio] 28.5 kg/m2 [facility] 06-19-2024 11:16-0400 Body weight 87.77 kg [facility] 06-19-2024 11:16-0400 Diastolic blood pressure 78 mm[Hg] [facility] 06-19-2024 11:16-0400 Heart rate 58 /min [facility] 06-19-2024 11:16-0400 Respiratory rate 12 /min [facility] 06-19-2024 11:16-0400 Systolic blood pressure 125 mm[Hg] [facility] 01-07-2024 14:37-0400 Body height 175.26 cm [facility] 01-07-2024 14:37-0400 Body mass index (BMI) [Ratio] 29 kg/m2 [facility] 01-07-2024 14:37-0400 Body weight 89.35 kg [facility] 01-07-2024 14:37-0400 Diastolic blood pressure 85 mm[Hg] [facility] 01-07-2024 14:37-0400 Heart rate 56 /min [facility] 01-07-2024 14:37-0400 Respiratory rate 12 /min [facility] 01-07-2024 14:37-0400 Systolic blood pressure 132 mm[Hg] [facility] 12-10-2022 11:00-0500 Body height 165.1 cm Sanket Ball Other [facility] [employer] Other 12-10-2022 11:00-0500 Body mass index (BMI) [Ratio] 33.61 kg/m2 Sanket Ball Other [facility] [employer] Other 12-10-2022 11:00-0500 Body weight 91.63 kg Sanket Ball Other [facility] [employer] Other 12-10-2022 11:00-0500 Diastolic blood pressure 76 mm[Hg] Sanket Ball Other [employer] Other 12-10-2022 11:00-0500 Respiratory rate 12 /min Sanket Ball Other [employer] Other 12-10-2022 11:00-0500 Systolic blood pressure 122 mm[Hg] Sanket Ball Other [employer] Other Encounters Encounter Date Encounter Type Care Provider Facility Start: 12-11-2024 End: 12-11-2024 ambulatory [facility] Work Phone: Start: 12-11-2024 End: 12-11-2024 Patient encounter procedure [facility] Physician [facility] Work Phone: Start: 12-08-2024 End: 12-08-2024 ambulatory [facility] Work Phone: Start: 12-08-2024 End: 12-08-2024 Patient encounter procedure [facility] Physician [facility] Work Phone: Start: 12-03-2024 Non-patient / Non-visit [facility] Physician [facility] Work Phone: Start: 12-02-2024 Non-patient / Non-visit [facility] Physician [facility] Work Phone: Start: 06-19-2024 End: 06-19-2024 ambulatory [facility] Work Phone: Start: 06-19-2024 End: 06-19-2024 Patient encounter procedure [facility] Physician [facility] Work Phone: Start: 06-05-2024 Non-patient / Non-visit [facility] Physician [facility] Work Phone: Start: 01-07-2024 End: 01-07-2024 ambulatory [facility] Work Phone: Start: 01-07-2024 End: 01-07-2024 Encounter for general adult medical examination without abnormal findings [facility] Start: 01-07-2024 End: 01-07-2024 Patient encounter procedure [facility] Physician [facility] Work Phone: Start: 07-08-2023 End: 07-08-2023 ambulatory ARISTEO C ELENO Facility:[facility] Start: 04-01-2023 End: 04-01-2023 ambulatory ARISTEO C ELENO Facility:[facility] Start: 12-27-2022 Telephone encounter Aristeo kitchen MD Work Phone: Urology Comment on above: Procedure Start: 12-21-2022 End: 12-21-2022 ambulatory ARISTEO LANGE Facility:[facility] Start: 12-10-2022 End: 12-10-2022 ambulatory Sanket Gonsalves Other [employer] Other Start: 12-10-2022 Encounter for genera l adult medical examination without abnormal findings Sanket Gonsalves [facility] Start: 12-10-2022 Periodic preventive med est patient 18-39 yrs Sanket Gonsalves [facility] Start: 06-07-2022 End: 06-08-[address] SANKET GONSALVES Facility:[facility] Plan of Treatment Date Care Activity Detail Author Start: 10-21-2022 DEPRESSION ASSESSMENT DEPRESSION ASS ESSMENT [facility] Start: 2022 LIPID SCREEN LIPID SCREEN [facility] Start: 2006 Urine microalbumin profile DTAP,TDAP ,TD (1 - Tdap) [facility] Start: 2005 HEPATITIS C SCREENING HEPATITIS C SC REENING [facility] Start: 2005 HIV SCREENING HIV SCREENING [facility] Start: 1987 HEPATITIS B (1 of 3 - 3-dose series) HEPATITIS B (1 of 3 - 3-dose series) [facility] Immunizations Immunization Date Immunization Notes Care Provider Fa davon 09-03-2022 Pfizer/Comirnaty, Pediatric Age 5-11 [facility] Payers Date Payer Category Payer Unknown MMO [employer] PPO [id number] 2016-Present [phone] [address] [place] [address] PPO [id number] 2016 Unknown [id number] 1959 Self-pay [id number] Unknown [id number] Social History Date Type Detail Facility Tobacco smoking status NHIS Tobacco smoking consumption unknown [facility] Start: 1985 Sex Assigned At Not on file C [facility] Sex Assigned At Sex Assigned At [facility] [employer] Other Start: 1985 Sex Assigned At Male F [facility] Start: 12-08-2024 End: 12-11-2024 Sex Male (finding) [facility] Clinical Notes 12-10-2022 to 12-08-2024 Note Date & Type Note Facility 12-08-2024 Evaluation note Diagnosis Onset Date Resolution Concussion acute December 08, 2024 3:25pm Laceration of scalp noneactive Febru ginna2024 3:25pm Contusion of hip, right noneactive December 08 3:25pm Sprain of wrist, right noneactive Fe bruary 2024 3:25pm Laceration of scalp noneactive Febru 2024 1:29pm [facility] Work Phone: 1(306) 727-347606-12-2023 NoteHNO ID: [id number] Author: Aristeo Lange MD Service: ? Author [...] pt with verbalization of understanding. Aristeo Lange [facility]03-10-2023 Miscellaneous Notes* Telephone Encounter - Jacek Small - 12/28/2022 4:09 PM EST Late note from yesterday. I spoke with patient and he would like to stick with Dr. Lange. Patient is scheduled for March and on waitlist * Telephone Encounter - Donya Suresh Pss - 12/27/2022 11:15 AM EST Patient calling. Had a VV with Dr Lange on 12/21/22. Was waiting to get a call to schedule vasectomy, however, having some misgivings on have Dr Lange do it for various reasons. Please contact to schedule with another provider. If he needs seen again, please advise, would like to stay with [facility] for the procedure if possible. [facility] NoteHNO ID: [id number] Author: Aristeo Lange MD Service: ? Author Type: Physician Type: Progress Notes Filed: 12/21/2022 3:27 PM Note Text: This is a Virtual Visit. It required [id number] Interaction with medical decision making as documented [...] patient attests that he will watch the AU Vasectomy video which has been sent to [...] approximately 50% of time in counseling Aristeo Lange, [facility]03-03-2023 Reason for referral (narrative)* Reason 12/21/22 Referral for scalpel free vasectomy with the [facility] Diagnosis 1 Encounter for vasect samia counseling (Z30.09) Referral Organization [facility] Referring Provider First Name Sanket Referring Provider Last Name Major Referring Provider Specialty Internal Me thai Referred Organization [facility] Referred Provider Jerman De Jesus Referred Address [address] [place], [place],[address] Referred Provider Specialty Urology Referral Priority Routine Referral Appointment Date 2022-12-21 General Notes Miranda Cole 12:26:54 PM >received todsay Miranda Cole 12/10/2022 [...] time. Clinical Notes Dr. Aristeo Lange P: [phone] F: [phone] [employer] Other 02-20-2023 Evaluation note* Encounter Date Diagnosis Assessment Notes Treatment Notes Treatment Clinical Notes Nov, Wellness examination (ICD-10 - Z00.00) Healthy diet and exercise. Reviewed age-appropriate preventive testing recommended. Nov, Streptococcal pharyngitis (ICD-10 [...] Z30.09) Would like to be referred to [facility] for scapel free procedure [employer] Other Chief complaint+Reason for visit Narrative* Chief Complaint referral for shoulde r Reason for Visit Wellness examination [facility] Work Phone: Evaluation note* Diagnosis Onset Date Resolution Status Wellness examination noneact mamie [facility] Work Phone: Evaluation noteNo assessment information available [facility] Work Phone: Evaluation note* Diagnosis Onset Date Resolution Status Admit Date Concussion acute December 08, 2024 3:25pm Laceration of scalp noneactive Febru ginna 2024 3:25pm Contusion of hip, right noneactive F ebruary 2024 3:25pm Sprain of wrist, right noneactive Fe bruary 2024 3:25pm [facility] Work Phone: History general Narrative - Reported* Type Description Date Medical History Spermatocele of epididymis, sing le Medical History Acute paronychia of finger of le ft hand Medical History Abrasion of palm of right hand, initial encounter Medical History Over weight [employer] Other Summary Purpose Family History Relationship Condition Age at Onset Recorded Date/T thomas father Hypertension Unknown Advance Directives Advance Directive Response Recorded Date/ Time Advance Directives No January 06 2:26pm Advance Directive Response Recorded Date/ Time Advance Directives No January 06 024 1:26pm Chief Complaint and Reason for Visit Chief Complaint Lump in back of thro at Chief Complaint Admit Date Amb Documentation December 03, 2024 9:33am Stitches Removal December 08, 2024 3:25pm Reason for Visit Admit Date Concussion December 08, 2024 3:25pm Laceration of scalp December 08, 2024 3:25pm Contusion of hip, right December 08, 2 025 3:25pm Sprain of wrist, right December 08 3:25pm Chief Complaint Admit Date Amb Documentation December 03, 2024 9:33am Stitches Removal December 08, 2024 3:25pm remove stiches December 11, 2024 1:29pm Reason for Visit Admit Date Concussion December 08, 2024 3:25pm Laceration of scalp December 08, 2024 3:25pm Contusion of hip, right December 08, 2 025 3:25pm Sprain of wrist, right December 08 3:25pm Laceration of scalp December 11, 2024 1:29pm Additional Source Comments (unrecognized sect ion and content) No Status Records FoundNo Status Records FoundNo Status Records Found INFORMATION SOURCE (unrecogn ized section and content) DATE CREATED AUTHOR 05/12/2020 [facility] DATE CREATED AUTHOR AUTHOR'S ORGANIZ ATION 06/13/2022 [facility] DATE CREATED AUTHOR AUTHOR'S ORGANIZ ATION 07/09/2023 [facility] Source Comments (unrecognize d section and content) In the event this informatio n is protected by the Federal Confidentiality of Alcohol and Drug Abuse Patient Records regulations: The Federal rules restrict any use of the information to criminally investigate or prosecute any alcohol or drug abuse patient.[facility] Reason for Visit (unrecogniz ed section and content) Reason Comments Procedure Care Teams (unrecognized sec tion and content) Team Status: Active Member Role Status Dates Sanket Gonsalves , Primary Care Provider Active Team Status: Active Member Role Status Dates Sanket Gonsalves DO Primary Care Provide r, Attending Provider Active Start: June 05, 2024 Team Status: Inactive Member Role Status Dates Sanket Gonsalves DO Primary Care Provide r, Attending Provider Active Start: June 19, 2024 End: June 19, 2024 Network Intern Relationship Specialty Start Date End Date Sanket Gonsalves DO [address] [place] [address] Referring Internal Medicine 12/18/22 Team Status: Inactive Member Role Status Dates Sanket Gonsalves DO Primary Care Provide r, Attending Provider Active Start: January 07, 2024 End: January 07, 2024 Team Status: Active Member Role Status Dates Sanket Gonsalves DO Primary Care Provider Active Start: December 02, 2024 Kylee Ledesma DO Attending Provider Active Start: December 02, 2024 Team Status: Active Member Role Status Efren Gonsalves DO Primary Care Provider Active Start: December 03, 2024 aBn Stanford CMA Attending Provider Active Start: December 03, 2024 Team Status: Inactive Member Role Status Dates Sanket Gonsalves DO Primary Care Provide r, Attending Provider Active Start: December 08, 2024 End: December 08, 2024 Team Status: Inactive Member Role Status Dates Sanket Gonsalves DO Primary Care Provide r, Attending Provider Active Start: December 11, 2024 End: December 11, 2024 Goals (unrecognized section and content) Goals [...] BE BASED ON THE PRIMARY CLINICAL RECORDS. [facility] [employer] provides no warranty or guarantee of the accuracy or completeness of information in this document.
== END 2025-01-11 07:23 | disposition home or self-care (01) ==
LOC: EC 07:22
PROVIDERS: PCP Internal Medicine; Visit Provider Orthopaedic Surgery
DX: S52.591A Other fractures of lower end of right radius, initial encounter for closed fracture (principal)
CPT/HCPCS: 73110

== ENCOUNTER 2025-02-08 07:41 | Outpatient (OUT) | payer OTHER, SELFPAY ==
--- NOTE | 2025-02-08 | XR_ITS ---
[address] [address] Patient Name: AMNA AMES MRN: [id number] date: 1985 Sex: M Assigned Patient Location: Current Patient Location: Accession/Order Number: [id number] Exam Date: 02/08/2025 10:05 Report Date: 02/08/2025 10:11 At the request of: ULISES VALVERDE MD Procedure: XR wrist RT min 3V 3 views right wrist plain film COMPARISON: 01/11/2025 HISTORY: Follow-up wrist fracture ACUTE FINDINGS: Stable bony findings DEGENERATIVE CHANGE: Unremarkable SOFT TISSUE FINDINGS: Unremarkable JOINT EFFUSION: None POSTOP CHANGES: None BONE MINERALIZATION: Adequate XR/XR wrist RT min 3V IMPRESSION: Stable bony findings. No evidence of healing. Impression dictated by: Ronak Tom M.D.02/08/2025 10:11 AM Dictation Location: [place] [address] Electronically authenticated by: [id number] Y Date: 02/08/2025 10:11
--- OUTSIDE RECORDS SUMMARY | 2025-02-08 07:47 | XMS_ITS | CCD ---
Author Organization [facility] Care Team Providers Care Medical Billing And Coding Specialist Name Role Phone DR SANKET GONSALVES Attending [...] Basophils (Bld) [#/Vol] Automated basophil count 0.0-0.1 [facility] Basophils/100 WBC Auto (Bld) on 12-02-2024 Basophils/100 WBC (Bld) Automated basophil % 0.2-2.0 [facility] Eosinophils/100 WBC Auto (Bl d)on 12-02-2024 Eosinophils/100 WBC (Bld) Automated eosinophil % 0.9-7.0 [facility] Erythrocyte distribution wid th Auto (RBC) [Ratio]on 12-02-2024 Erythrocyte distribution width (RBC) [Ratio] Erythrocyte distribution width [Ratio] by Automated count 11.0-15.0 [facility] Estimated glomerular filtrat ion rate (GFR) non- Americanon 12-02-2024 GFR/1.73 sq M.predicted among non-blacks MDRD (S/P/Bld) [Vol rate/Area] Estimated glomerular filtration rate (GFR) non- >=60 mL/min/1.73m 2 [facility] Globulin Calc (S) [Mass/Vol] on 12-02-2024 Globulin (S) [Mass/Vol] Serum globulin measurement by calculation (mass/volume) [facility] Hematocrit Auto (Bld) [Volum e fraction]on 12-02-2024 Hematocrit (Bld) [Volume fraction] Hematocrit [Volume Fraction] of Blood by Automated count 42.0-54.0 [facility] Hemoglobin [Mass/volume] in Bloodon 12-02-2024 Hemoglobin (Bld) [Mass/Vol] Hemoglobin [Mass/volume] in Blood 14.0-18.0 [facility] Laboratory - Chemistry and C hemistry - challengeon 12-02-2024 Albumin [Mass/Vol] 3.9 g/dL 3.4-5.0 [facility] ALP [Catalytic activity/Vol] 70 U/L 46-116 [facility] ALT [Catalytic activity/Vol] 38 U/L 16-63 [facility] AST [Catalytic activity/Vol] 22 U/L 15-37 [facility] Bilirubin [Mass/Vol] 0.3 mg/dL 0.2-1.0 [facility] Calcium [Mass/Vol] 9.1 mg/dL 8.5-10.1 [facility] Chloride [Moles/Vol] 102 mmol/L 98-107 [facility] CO2 [Moles/Vol] 29.7 mmol/L 21.0-32.0 [facility] Creatinine [Mass/Vol] 1.10 mg/dL 0.70-1.30 [facility] GFR/1.73 sq M.predicted MDRD (S/P/Bld) [Vol rate/Area] mL/min/{1.73_m2} >=60 mL/min/1.73m 2 [facility] Glucose [Mass/Vol] 121 mg/dL High 74-106 [facility] Comment on above: SPECIMEN SLIGHTLY LI PEMIC Potassium [Moles/Vol] 3.1 mmol/L Low 3.5-5.1 [facility] Protein [Mass/Vol] 7.6 g/dL 6.4-8.2 [facility] Sodium [Moles/Vol] 143 mmol/L 136-145 [facility] Urea nitrogen [Mass/Vol] 18.0 mg/dL 7.0-18.0 [facility] Urea nitrogen/Creatinine [Mass ratio] 16.4 mg/mg [facility] Laboratory - Hematology and Cell countson 12-02-2024 Immature granulocytes/100 WBC (Bld) 0.3 % 0.0-0.5 [facility] Leukocytes [#/volume] correc sujata for nucleated erythrocytes in Blood by Automated counon 12-02-2024 WBC corrected for nucl RBC Auto (Bld) [#/Vol] Leukocytes [#/volume] corrected for nucleated erythrocytes in Blood by Automated coun 4.0-11.0 [facility] Lymphocytes Auto (Bld) [#/Vo l]on 12-02-2024 Lymphocytes (Bld) [#/Vol] Lymphocytes [#/volume] in Blood by Automated count 1.2-3.8 [facility] Lymphocytes/100 WBC Auto (Bl d)on 12-02-2024 Lymphocytes/100 WBC (Bld) Lymphocytes/100 leukocytes in Blood by Automated count 20.5-60.0 [facility] MCH Auto (RBC) [Entitic mass ]on 12-02-2024 MCH (RBC) [Entitic mass] MCH [Entitic mass] by Automated count 25.9-34.0 [facility] MCHC Auto (RBC) [Mass/Vol]on 12-02-2024 MCHC (RBC) [Mass/Vol] MCHC [Mass/volume] by Automated count 29.9-35.2 [facility] MCV Auto (RBC) [Entitic vol] on 12-02-2024 MCV (RBC) [Entitic vol] MCV [Entitic volume] by Automated count 80.0-94.0 [facility] Monocytes Auto (Bld) [#/Vol] on 12-02-2024 Monocytes (Bld) [#/Vol] Automated blood monocyte count 0.3-0.8 [facility] Monocytes/100 WBC Auto (Bld) on 12-02-2024 Monocytes/100 WBC (Bld) Automated monocyte % 1.7-12.0 [facility] Neutrophils Auto (Bld) [#/Vo l]on 12-02-2024 Neutrophils (Bld) [#/Vol] Neutrophils [#/volume] in Blood by Automated count 1.4-6.5 [facility] Neutrophils/100 WBC Auto (Bl d)on 12-02-2024 Neutrophils/100 WBC (Bld) Automated neutrophil % 43.0-75.0 [facility] No Panel Informationon 12-02 Eosinophils # (Auto) 0.3 10 3/uL 0.0-0.7 [facility] Immature Granulocyte # (Auto) 0.02 10 3/uL 0.00-0.03 [facility] Troponin I High Sensitivity 5.7 pg/mL 4.0-76.1 [facility] Comment on above: CUT-OFF POINTS HAVE BEEN [...] in Blood by Automated count Low 9.5-13.5 [facility] Platelets Auto (Bld) [#/Vol] on 12-02-2024 Platelets (Bld) [#/Vol] Platelets [#/volume] in Blood by Automated count 150-450 [facility] RBC Auto (Bld) [#/Vol]on RBC (Bld) [#/Vol] Erythrocytes [#/volume] in Blood by Automated count 4.70-6.10 [facility] Serum or plasma albumin/glob ulin mass ratioon 12-02-2024 Albumin/Globulin [Mass ratio] Serum or plasma albumin/globulin mass ratio [facility] Serum or plasma anion gap de terminationon 12-02-2024 Anion gap [Moles/Vol] Serum or plasma anion gap determination [facility] Basophils Auto (Bld) [#/Vol] on 06-05-2024 Basophils (Bld) [#/Vol] 0.0 10 3/uL 0.0-0.1 [facility] Basophils/100 WBC Auto (Bld) on 06-05-2024 Basophils/100 WBC (Bld) 0.5 % 0.2-2.0 [facility] Cholesterol in LDL Calc [Mas s/Vol]on 06-05-2024 Cholesterol in LDL [Mass/Vol] 138.0 mg/dL [facility] Comment on above: <100 mg/dl [id number] 0-129 mg/dl NEAR OR ABOVE [id number] mg/dl BORDERLINE [id number] mg/dl HIGH>190 mg/dl VERY HIGH Cholesterol in VLDL Calc [Ma ss/Vol]on 06-05-2024 Cholesterol in VLDL [Mass/Vol] 20.6 mg/dL [facility] Eosinophils/100 WBC Auto (Bl d)on 06-05-2024 Eosinophils/100 WBC (Bld) 3.4 % 0.9-7.0 [facility] Erythrocyte distribution wid th Auto (RBC) [Ratio]on 06-05-2024 Erythrocyte distribution width (RBC) [Ratio] 12.3 % 11.0-15.0 [facility] Estimated glomerular filtrat ion rate (GFR) non- Americanon 06-05-2024 GFR/1.73 sq M.predicted among non-blacks MDRD (S/P/Bld) [Vol rate/Area] mL/min/{1.73_m2} >=60 [facility] Globulin Calc (S) [Mass/Vol] on 06-05-2024 Globulin (S) [Mass/Vol] 3.6 g/dL [facility] Hematocrit Auto (Bld) [Volum e fraction]on 06-05-2024 Hematocrit (Bld) [Volume fraction] 48.7 % 42.0-54.0 [facility] Hemoglobin [Mass/volume] in Bloodon 06-05-2024 Hemoglobin (Bld) [Mass/Vol] 16.7 g/dL 14.0-18.0 [facility] Laboratory - Chemistry and C hemistry - challengeon 06-05-2024 Albumin [Mass/Vol] 4.1 g/dL 3.4-5.0 [facility] ALP [Catalytic activity/Vol] 64 U/L 46-116 [facility] ALT [Catalytic activity/Vol] 29 U/L 16-63 [facility] AST [Catalytic activity/Vol] 20 U/L 15-37 [facility] Bilirubin [Mass/Vol] 0.8 mg/dL 0.2-1.0 [facility] Calcium [Mass/Vol] 9.1 mg/dL 8.5-10.1 [facility] Chloride [Moles/Vol] 101 mmol/L 98-107 [facility] Cholesterol [Mass/Vol] 210 mg/dL High <=200 [facility] Cholesterol in HDL [Mass/Vol] 52 mg/dL 40-60 [facility] Comment on above: > or =60 mg/dl - LOW CARDIOVASCULAR RISK<40 mg/dl - HIGH CARDIOVASCULAR RISK CO2 [Moles/Vol] 28.5 mmol/L 21.0-32.0 [facility] Creatinine [Mass/Vol] 0.98 mg/dL 0.70-1.30 [facility] GFR/1.73 sq M.predicted MDRD (S/P/Bld) [Vol rate/Area] mL/min/{1.73_m2} >=60 [facility] Glucose [Mass/Vol] 84 mg/dL 74-106 [facility] Potassium [Moles/Vol] 3.7 mmol/L 3.5-5.1 [facility] Protein [Mass/Vol] 7.7 g/dL 6.4-8.2 [facility] Sodium [Moles/Vol] 137 mmol/L 136-145 [facility] Triglyceride [Mass/Vol] 103 mg/dL <=150 [facility] TSH Qn 2.811 m[IU]/L 0.358-3.740 [facility] Urea nitrogen [Mass/Vol] 20.0 mg/dL High 7.0-18.0 [facility] Urea nitrogen/Creatinine [Mass ratio] 20.4 mg/mg [facility] Laboratory - Hematology and Cell countson 06-05-2024 Immature granulocytes/100 WBC (Bld) 0.3 % 0.0-0.5 [facility] Leukocytes [#/volume] correc sujata for nucleated erythrocytes in Blood by Automated counon 06-05-2024 WBC corrected for nucl RBC Auto (Bld) [#/Vol] 6.2 10 3/uL 4.0-11.0 [facility] Lymphocytes Auto (Bld) [#/Vo l]on 06-05-2024 Lymphocytes (Bld) [#/Vol] 2.2 10 3/uL 1.2-3.8 [facility] Lymphocytes/100 WBC Auto (Bl d)on 06-05-2024 Lymphocytes/100 WBC (Bld) 35.6 % 20.5-60.0 [facility] MCH Auto (RBC) [Entitic mass ]on 06-05-2024 MCH (RBC) [Entitic mass] 30.5 pg 25.9-34.0 [facility] MCHC Auto (RBC) [Mass/Vol]on 06-05-2024 MCHC (RBC) [Mass/Vol] 34.3 g/dL 29.9-35.2 [facility] MCV Auto (RBC) [Entitic vol] on 06-05-2024 MCV (RBC) [Entitic vol] 88.9 fL 80.0-94.0 [facility] Monocytes Auto (Bld) [#/Vol] on 06-05-2024 Monocytes (Bld) [#/Vol] 0.6 10 3/uL 0.3-0.8 [facility] Monocytes/100 WBC Auto (Bld) on 06-05-2024 Monocytes/100 WBC (Bld) 9.1 % 1.7-12.0 [facility] Neutrophils Auto (Bld) [#/Vo l]on 06-05-2024 Neutrophils (Bld) [#/Vol] 3.2 10 3/uL 1.4-6.5 [facility] Neutrophils/100 WBC Auto (Bl d)on 06-05-2024 Neutrophils/100 WBC (Bld) 51.1 % 43.0-75.0 [facility] No Panel Informationon 06-05 Eosinophils # (Auto) 0.2 10 3/uL 0.0-0.7 [facility] Immature Granulocyte # (Auto) 0.02 10 3/uL 0.00-0.03 [facility] Platelet mean volume Auto (B ld) [Entitic vol]on 06-05-2024 Platelet mean volume (Bld) [Entitic vol] 9.2 fL Low 9.5-13.5 [facility] Platelets Auto (Bld) [#/Vol] on 06-05-2024 Platelets (Bld) [#/Vol] 339 10 3/uL 150-450 [facility] RBC Auto (Bld) [#/Vol]on RBC (Bld) [#/Vol] 5.48 10 6/uL 4.70-6.10 [facility] Serum or plasma albumin/glob ulin mass ratioon 06-05-2024 Albumin/Globulin [Mass ratio] 1.1 {ratio} [facility] Serum or plasma anion gap de terminationon 06-05-2024 Anion gap [Moles/Vol] 11.2 mmol/L [facility] Serum or plasma total choles terol/high density lipoprotein (HDL) cholesterol mass florence 06-05-2024 Cholesterol.total/Ch olesterol in HDL [Mass ratio] 4.0 {ratio} [facility] Comment on above: 3.3 - 4.4 LOW RISK4. 4 - 7.1 AVERAGE RISK7.1 - 11.0 MODERATE RISK>11.0 HIGH RISK POST VASEC SCREENon 07-08-20 23 Collection time (Stephany) [Date/time] 1130 Normal [facility] Comment on above: Order Comment: Speci men Type: SEMINAL FLUID SPECIMEN Ordering Facility: [facility] Address: [address] [place] [address] [place] [address] Result Comment: 1131 Performed By: #### S EPOST #### [facility] CLIA [id number] [place] [place] [address] Color (Stephany) Friedman Opalescent Normal [facility] Comment on above: Order Comment: Speci men Type: SEMINAL FLUID SPECIMEN Ordering Facility: [facility] Address: [address] [address] Performed By: #### S EPOST #### [facility] CLIA [id number] [address] [place] [address]. [place] [address] COMMENT POST VASEC No sperm seen on wet preps. Normal [facility] Comment on above: Order Comment: Speci men Type: SEMINAL FLUID SPECIMEN Ordering Facility: [facility] Address: [address] [address] Performed By: #### S EPOST #### [facility] CLIA [id number] [address] [place] [address]. [place] [address] pH (Stephany) 7.6 Normal >=7.2 [facility] Comment on above: Order Comment: Speci men Type: SEMINAL FLUID SPECIMEN Ordering Facility: [facility] Address: [address] [address] Performed By: #### S EPOST #### [facility] CLIA [id number] [address] [place] [address]. [place] [address] POST VASECTOMY SCREEN Pass per AUA guidelines (<=100,000 non-motile sperm/mL ) Normal Pass per AUA guidelines (<=100,000 non-motile sperm/mL ) [facility] Comment on above: Order Comment: Speci men Type: SEMINAL FLUID SPECIMEN Ordering Facility: [facility] Address: [address] [address] Performed By: #### S EPOST #### [facility] CLIA [id number] [address] [place] [address]. [place] [address] Sexual abstinence duration [Time] 4.0 Days Normal [facility] Comment on above: Order Comment: Speci men Type: SEMINAL FLUID SPECIMEN Ordering Facility: [facility] Address: [address] [address] Performed By: #### S EPOST #### [facility] CLIA [id number] [place] [place] [address] Specimen volume (Stephany) 6.00 mL Normal >=1.50 [facility] Comment on above: Order Comment: Speci men Type: SEMINAL FLUID SPECIMEN Ordering Facility: [facility] Address: [address] [place] [address] Performed By: #### S EPOST #### [facility] CLIA [id number] [place] [address] S[place] Motile/100 spermatozoa (Stephany) No motile sperm seen Normal No motile sperm seen [facility] Comment on above: Order Comment: Speci men Type: SEMINAL FLUID SPECIMEN Ordering Facility: [facility] Address: [address] [place] [address] Performed By: #### S EPOST #### [facility] CLIA [id number] [address] [place] [id number] TIME TO ANALYSIS 24 Minutes Normal 0-60 [facility] Comment on above: Order Comment: Speci men Type: SEMINAL FLUID SPECIMEN Ordering Facility: [facility] Address: [address] [place] [address] Performed By: #### S EPOST #### [facility] CLIA [id number] [address] [place] [address] CNOVon 04-01-2023 CNOV Office Visit (UROLAV) AMNA AMES ([id number]) 1985 M Date Time Provider Department 04/01/23 [...] scale. Grounding pad applied L, lot # [id number], exp date 12/18/2024, bovie unit # [id number] Valium taken at 7am Patient Prep: Betadine [...] Education Session: None Instruction Provided To: Patient Director Treasurer Present: not applicable Discipline: Nursing Learning Topic: SURVIVAL SKILLS: Complication Prevention, precautions, andrology supplies and Symptom Management Patient Evaluation: Verbalizes understanding: Yes Supplemental Material Given: Written Material Instructed By Lexy Witt LPN in Urology Department . Pt. escorted pt to lobby. Gait steady. Pt stated no further questions at this time. Lexy Glassrz [employer] REPAIRER 04/01/2023 8:22 AM Signed Post-Operative Instructions for [...] than the other. Contact Numbers: Tabitha Greco: [phone] - ask to speak to or leave a message for the urology nurses Lenora Peters: [phone] - ask to speak to or leave a message for the urology nurses [facility] [place]: [phone] Activity Level: No heavy lifting >20 lbs or vigorous activity for 1 week OK to resume sexual activity in 1 week Medications: You can take amvg-yrr-ckevzgg tylenol and/or ibuprofen as needed for pain. For the first 24 hours, I recommend taking dmip-ctg-yumhaas dosing of tylenol alternating with ibuprofen every 4 hours (For Example, 8 AM tylenol, 12 PM ibuprofen, 4 PM Tylenol, 8 PM Ibuprofen). All normal medications can be resumed after the procedure Semen Analysis: Please get a semen eusebio (more content not included)... Normal [facility] Cyrus 12-27-2022 GUSTAVO Telephone (UROLAV) MANA AMES ([id number]) 1985 M Date Time Provider Department 12/27/22 [...] Status:Closed by JACEK SMALL on 12/28/22 Normal [facility] CBC AUTO DIFFon 06-07-2022 BASO # 0.0 103/ul Normal 0.0-0.1 [facility] Comment on above: Performed By: #### H FPFCBC #### [facility] [address] [place] [address] Dr. Blaire Wilson Basophils/100 WBC (Bld) 0.5 % Normal 0.2-2.0 [facility] Comment on above: Performed By: #### H FPFCBC #### [facility] [address] [place] [address] Dr. Blaire Wilson EO # 0.2 103/ul Normal 0.0-0.7 [facility] Comment on above: Performed By: #### H FPFCBC #### [facility] [address] [place] [address] Dr. Blaire Wilson Eosinophils/100 WBC (Bld) 3.1 % Normal 0.9-7.0 [facility] Comment on above: Performed By: #### H FPFCBC #### [facility] [address] [place] [address] Dr. Blaire Wilson Erythrocyte distribution width (RBC) [Ratio] 12.7 % Normal 11.0-15.0 [facility] Comment on above: Performed By: #### H FPFCBC #### [facility] [address] [place] [address] Dr. Blaire Wilson Hematocrit (Bld) [Volume fraction] 45.9 % Normal 42.0-54.0 [facility] Comment on above: Performed By: #### H FPFCBC #### [facility] [address] [place] [address] Dr. Blaire Wilson Hemoglobin (Bld) [Mass/Vol] 15.3 g/dL Normal 14.0-18.0 [facility] Comment on above: Performed By: #### H FPFCBC #### [facility] [address] [place] [address] Dr. Blaire Wilson IG # 0.01 10e3/ul Normal 0.00-0.03 [facility] Comment on above: Performed By: #### H FPFCBC #### [facility] [address] [place] [address] Dr. Blaire Wilson IG % 0.2 % Normal 0.0-0.5 [facility] Comment on above: Performed By: #### H FPFCBC #### [facility] [address] [place] [address] Dr. Blaire Wilson LYMPH # 2.0 103/ul Normal 1.2-3.8 [facility] Comment on above: Performed By: #### H FPFCBC #### [facility] [address] [place] [address] Dr. Blaire Wilson Lymphocytes/100 WBC (Bld) 36.3 % Normal 20.5-60.0 [facility] Comment on above: Performed By: #### H FPFCBC #### [facility] [address] [place] [address] Dr. Blaire Wilson MCH (RBC) [Entitic mass] 29.6 pg Normal 25.9-34.0 [facility] Comment on above: Performed By: #### H FPFCBC #### [facility] [address] [place] [address] Dr. Blaire Wilson MCHC (RBC) [Mass/Vol] 33.3 g/dL Normal 29.9-35.2 [facility] Comment on above: Performed By: #### H FPFCBC #### [facility] [address] [place] [address] Dr. Blaire Wilson MCV (RBC) [Entitic vol] 88.8 fL Normal 80.0-94.0 [facility] Comment on above: Performed By: #### H FPFCBC #### [facility] [address] [place] [address] Dr. Blaire Wilson MONO # 0.5 103/ul Normal 0.3-0.8 [facility] Comment on above: Performed By: #### H FPFCBC #### [facility] [address] [place] [address] Dr. Blaire Wilson Monocytes/100 WBC (Bld) 8.4 % Normal 1.7-12.0 [facility] Comment on above: Performed By: #### H FPFCBC #### [facility] [address] [place] [address] Dr. Blaire Wilson NEUT # 2.9 103/ul Normal 1.4-6.5 [facility] Comment on above: Performed By: #### H FPFCBC #### [facility] [address] [place] [address] Dr. Blaire Wilson Neutrophils/100 WBC (Bld) 51.5 % Normal 43.0-75.0 [facility] Comment on above: Performed By: #### H FPFCBC #### [facility] [address] [place] [address] Dr. Blaire Wilson Platelet mean volume (Bld) [Entitic vol] 9.1 fL Critically low 9.5-13.5 [facility] Comment on above: Performed By: #### H FPFCBC #### [facility] [address] [place] [address] Dr. Blaire Wilson PLT 340 103/ul Normal 150-450 [facility] Comment on above: Performed By: #### H FPFCBC #### [facility] [address] [place] [address] Dr. Blaire Wilson RBC 5.17 106/ul Normal 4.70-6.10 [facility] Comment on above: Performed By: #### H FPFCBC #### [facility] [address] [place] [address] Dr. Blaire Wilson WBC 5.6 103/ul Normal 4.0-11.0 [facility] Comment on above: Performed By: #### H FPFCBC #### [facility] [address] [place] [address] Dr. Blaire Wilson [facility] PROFILEon 022 Albumin [Mass/Vol] 4.0 g/dL Normal 3.4-5.0 [facility] Comment on above: Performed By: #### H FPF #### [facility] [address] [place] [address] Dr. Blaire Wilson Albumin/Globulin [Mass ratio] 1.1 {ratio} Normal [facility] Comment on above: Performed By: #### H FPF #### [facility] [address] [place] [address] Dr. Blaire Wilson ALP [Catalytic activity/Vol] 60 U/L Normal 46-116 [facility] Comment on above: Performed By: #### H FPF #### [facility] [address] [place] [address] Dr. Blaire Wilson ALT [Catalytic activity/Vol] 21 U/L Normal 16-63 [facility] Comment on above: Performed By: #### H FPF #### [facility] [address] [place] [address] Dr. Blaire Wilson AST [Catalytic activity/Vol] 15 U/L Normal 15-37 [facility] Comment on above: Performed By: #### H FPF #### [facility] [address] [place] [address] Dr. Blaire Wilson Bilirubin [Mass/Vol] 0.4 mg/dL Normal 0.2-1.0 [facility] Comment on above: Performed By: #### H FPF #### [facility] [address] [place] [address] Dr. Blaire Wilson Calcium [Mass/Vol] 8.9 mg/dL Normal 8.5-10.1 [facility] Comment on above: Performed By: #### H FPF #### [facility] [address] [place] [address] Dr. Blaire Wilson Chloride [Moles/Vol] 104 mmol/L Normal 98-107 [facility] Comment on above: Performed By: #### H FPF #### [facility] [address] [place] [address] Dr. Blaire Wilson CHOL-HDL RATIO NORM SEE BELOW Normal [facility] Comment on above: Result Comment: 3.3 - 4.4 LOW RISK 4.4 - 7.1 AVERAGE RISK 7.1 - 11.0 MODERATE RISK >11.0 HIGH RISK Performed By: #### H FPF #### [facility] [address] [place] [address] Dr. Blaire Wilson Cholesterol [Mass/Vol] 176 mg/dL Normal <=200 [facility] Comment on above: Performed By: #### H FPF #### [facility] [address] [place] [address] Dr. Blaire Wilson Cholesterol in HDL [Mass/Vol] 48 mg/dL Normal 40-60 [facility] Comment on above: Performed By: #### H FPF #### [facility] [address] [place] [address] Dr. Blaire Wilson Cholesterol in LDL [Mass/Vol] 113.6 mg/dL Normal [facility] Comment on above: Performed By: #### H FPF #### [facility] [address] [place], [place] [address] Dr. Blaire Wilson Cholesterol.total/Ch olesterol in HDL [Mass ratio] 3.7 {ratio} Normal [facility] Comment on above: Performed By: #### H FPF #### [facility] [address] [address] [address] Blaire Wilson CO2 [Moles/Vol] 28.2 mmol/L Normal 21.0-32.0 [facility] Comment on above: Performed By: #### H FPF #### [facility] [address] [address] [address] Blaire Wilson Creatinine [Mass/Vol] 0.90 mg/dL Normal 0.70-1.30 [facility] Comment on above: Performed By: #### H FPF #### [facility] [address] [place] [address] Dr. Blaire Wilson Globulin (S) [Mass/Vol] 3.5 g/dL Normal [facility] Comment on above: Performed By: #### H FPF #### [facility] [address] [place] [address] Dr. Blaire Wilson Glucose [Mass/Vol] 91 mg/dL Normal 74-106 [facility] Comment on above: Performed By: #### H FPF #### [facility] [address] [place] [address] Dr. Blaire Wilson HDL NORMAL > or = 60 mg/dl - LOW CARDIOVASCULAR RISK <40 mg/dl - HIGH CARDIOVASCULAR RISK Normal [facility] Comment on above: Performed By: #### H FPF #### [facility] [address] [place] [address] Dr. Blaire Wilson LDL CALC NORMAL SEE BELOW Normal [facility] Comment on above: Result Comment: <100 mg/dl OPTIMAL 100 - 129 mg/dl NEAR OR ABOVE OPTIMAL 130 - 159 mg/dl BORDERLINE HIGH 160 - 189 mg/dl HIGH >190 mg/dl VERY HIGH Performed By: #### H FPF #### [facility] [address] [place] [address] Dr. Blaire Wilson Potassium [Moles/Vol] 4.0 mmol/L Normal 3.5-5.1 [facility] Comment on above: Performed By: #### H FPF #### [facility] [address] [address] [address] Blaier Wilson Protein [Mass/Vol] 7.5 g/dL Normal 6.4-8.2 [facility] Comment on above: Performed By: #### H FPF #### [facility] [address] [address] [address] Blaire Wilson Sodium [Moles/Vol] 141 mmol/L Normal 136-145 [facility] Comment on above: Performed By: #### H FPF #### [facility] [address] [address] [address] Blaire Wilson Triglyceride [Mass/Vol] 72 mg/dL Normal <=150 [facility] Comment on above: Performed By: #### H FPF #### [facility] [address] [address] [address] Blaire Wilson TSH 1.730 uIU/mL Normal 0.358-3.740 [facility] Comment on above: Performed By: #### H FPF #### [facility] [address] [address] [address] Blaire Wilson Urea nitrogen [Mass/Vol] 19.0 mg/dL Critically high 7.0-18.0 [facility] Comment on above: Performed By: #### H FPF #### [facility] [address] [address] [address] Blaire Wilson Urea nitrogen/Creatinine [Mass ratio] 21.1 mg/mg Normal [facility] Comment on above: Performed By: #### H FPF #### [facility] [address] [address] [address] Blaire Wilson VLDL CALC 14.4 mg/dL Normal [facility] Comment on above: Performed By: #### H FPF #### [facility] [address] [address] [address] Blaire Wilson Coding Summary.on 04-20-2020 Coding Summary. CODING DATE: 04/20/2020 FINAL [facility] STATUS: Home (Routine DC) PAYOR: [facility] [employer] ADMIT DX: REASON FOR VISIT DX: Z01.84 [...] Humphrey Date Saved: 04/20/2020 03:04 pm Normal [facility] Physician Orderon 04-03-2020 Physician Order [id number] 5#1.00CD:127 Normal [facility] Coding Summary.on 10-07-2019 Coding Summary. CODING DATE: 10/07/2019 FINAL [facility] STATUS: Home (Routine DC) PAYOR: [facility] [employer] APC DESCRIPTION 5691 Level 1 Drug Administration [...] Revised Date Saved: 10/07/2019 12:31 pm Normal [facility] Amylaseon 10-04-2019 Amylase [Catalytic activity/Vol] 73 unit/L Normal 25-157 [facility] Comment on above: Performed By: #### 1 [id number], 3683103, 2684188, 1818278, 1476002, 9767177 #### [facility] [address] [place] [address] Auto Diffon 10-04-2019 Basophils/100 WBC (Bld) 0.1 % Normal 0.0-2.0 [facility] Comment on above: Order Comment: Order Added by Discern Expert. Performed By: #### 1 7026423, 3301760, 7266215, 4538139, 2037411, 5909731 #### [facility] [address] [place] [address] Basophils/Leukocytes Auto (Bld) [Pure # fraction] 0.0 E9/L Normal 0.0-0.2 [facility] Comment on above: Order Comment: Order Added by Discern Expert. Performed By: #### 1 8016810, 8877454, 5702100, 1357333, 1157731, 1852561 #### [facility] [address] [place] [address] Eosinophils/100 WBC (Bld) 0.1 % Normal 0.0-8.0 [facility] Comment on above: Order Comment: Order Added by Discern Expert. Performed By: #### 1 5987706, 5261890, 3277481, 5467255, 6457543, 9924835 #### [facility] [address] [place] [address]275 Eosinophils/Leukocyt es Auto (Bld) [Pure # fraction] 0.0 E9/L Normal 0.0-0.5 [facility] Comment on above: Order Comment: Order Added by Discern Expert. Performed By: #### 1 6135739, 2274772, 0122108, 1926547, 3141528, 2763379 #### [facility] [address] [place] [address]151 Lymphocytes/100 WBC (Bld) 1.3 % Low 14.0-50.0 [facility] Comment on above: Order Comment: Order Added by Discern Expert. Performed By: #### 1 9557690, 2455855, 4697484, 0934598, 3460531, 0294024 #### [facility] [address] [place] [address] Lymphocytes/Leukocyt es Auto (Bld) [Pure # fraction] 0.2 E9/L Low 1.0-4.0 [facility] Comment on above: Order Comment: Order Added by Discern Expert. Performed By: #### 1 8770825, 0011401, 7559969, 8791354, 0036241, 8968973 #### [facility] [address] [place] [address] 77060 Monocytes/100 WBC (Bld) 5.6 % Normal 4.0-14.0 [facility] Comment on above: Order Comment: Order Added by Discern Expert. Performed By: #### 1 3215373, 6557365, 5661379, 1406260, 9926515, 0482250 #### [facility] [address] [place] [address] Monocytes/Leukocytes Auto (Bld) [Pure # fraction] 0.8 E9/L Normal 0.2-1.0 [facility] Comment on above: Order Comment: Order Added by Discern Expert. Performed By: #### 1 2713876, 8051703, 5388209, 2441919, 0703782, 6837614 #### [facility] [address] [place] [address] 89744 Neutrophils/100 WBC (Bld) 92.9 % High 36.0-75.0 [facility] Comment on above: Order Comment: Order Added by Discern Expert. Performed By: #### 1 8756473, 8680125, 5891966, 7679253, 8326590, 6952366 #### [facility] [address] [place] [address] 85689 Neutrophils/Leukocyt es Auto (Bld) [Pure # fraction] 13.6 E9/L High 2.0-7.5 [facility] Comment on above: Order Comment: Order Added by Discern Expert. Performed By: #### 1 4174929, 2546984, 1457041, 9642579, 5996513, 9750065 #### [facility] [address] [place] [address] 93894 CBC w/ Auto Diffon 9 Erythrocyte distribution width (RBC) [Ratio] 13.2 % Normal 10.9-14.2 [facility] Comment on above: Performed By: #### 1 4018076, 7840106, 1939943, 8867080, 7459064, 3152126 #### [facility] [address] [place] [address]796 Hematocrit (Bld) [Volume fraction] 52.3 % High 37.7-49.0 [facility] Comment on above: Performed By: #### 1 4038502, 0113314, 0230579, 9715878, 9407532, 1390020 #### [facility] [address] [place] [address]2901 Hemoglobin (Bld) [Mass/Vol] 18.0 g/dL High 13.5-17.5 [facility] Comment on above: Performed By: #### 1 4038123, 3710644, 0480508, 0812121, 9780032, 8480894 #### [facility] [address] [place] [address] 15729 MCH (RBC) [Entitic mass] 30.1 pg Normal 27.0-34.0 [facility] Comment on above: Performed By: #### 1 6500865, 0438793, 2603765, 9591200, 3223731, 7018822 #### [facility] [address] [place] [address] 71566 MCHC (RBC) [Mass/Vol] 34.4 g/dL Normal 31.4-36.0 [facility] Comment on above: Performed By: #### 1 4236509, 4850565, 9027260, 8469710, 4298253, 0116383 #### [facility] [address] [place] [address] 83079 MCV (RBC) [Entitic vol] 87.4 fL Normal 80.0-100.0 [facility] Comment on above: Performed By: #### 1 4788950, 9962718, 6594730, 9625198, 7279177, 3245857 #### [facility] [address] [place] [address] 70770 Platelet mean volume (Bld) [Entitic vol] 7.2 fL Normal 6.4-10.8 [facility] Comment on above: Performed By: #### 1 3824665, 0176181, 7727046, 6864657, 4803164, 7058871 #### [facility] [address] [place] [address] 22501 Platelets (Bld) [#/Vol] 334.0 E9/L Normal 150.0-500.0 [facility] Comment on above: Performed By: #### 1 6841565, 0848908, 6413095, 4527770, 7673749, 0643387 #### [facility] [address] [place] [address] 50601 RBC (Bld) [#/Vol] 6.0 E12/L High 4.3-5.9 [facility] Comment on above: Performed By: #### 1 4289818, 8076995, 6398620, 1938737, 8248934, 3364854 #### [facility] [address] [place] [address] 92363 WBC corrected for nucl RBC Auto (Bld) [#/Vol] 14.7 E9/L High 4.0-11.0 [facility] Comment on above: Performed By: #### 1 1897875, 9308896, 7141572, 5071593, 0245246, 0143652 #### [facility] [address] [place] [address] 68746 CMPon 10-04-2019 Albumin [Mass/Vol] 5.2 g/dL High 3.3-5.0 [facility] Comment on above: Performed By: #### 1 2099442, 0290059, 8316525, 3113685, 8295022, 7671230 #### [facility] [address] [place] [address] 53076 Albumin [Mass/Vol] 1.4 g/dL Normal 1.1-2.2 [facility] Comment on above: Performed By: #### 1 8338963, 1506655, 5839026, 6321794, 5608303, 0655862 #### [facility] [address] [place] [address] 55864 ALP [Catalytic activity/Vol] 57 Int._Unit/L Normal 21-98 [facility] Comment on above: Performed By: #### 1 2001210, 5049808, 5806793, 5562981, 8295492, 3483423 #### [facility] [address] [place] [address] ALT No additional P-5'-P [Catalytic activity/Vol] 21 Int._Unit/L Normal 6-46 [facility] Comment on above: Performed By: #### 1 1221983, 6215783, 4923973, 7762321, 9320075, 4471984 #### [facility] [address] [place] [address] AST [Catalytic activity/Vol] 23 Int._Unit/L Normal 5-43 [facility] Comment on above: Performed By: #### 1 4931699, 2194444, 6723825, 3918367, 4532943, 3926427 #### [facility] [address] [place] [address] 91694 Bilirubin [Mass/Vol] 1.6 mg/dL High 0.0-1.1 [facility] Comment on above: Performed By: #### 1 5619489, 4630542, 3945452, 9324990, 3510997, 3210499 #### [facility] [address] [place] [address] 80296 Creatinine [Mass/Vol] 1.0 mg/dL Normal 0.5-1.3 [facility] Comment on above: Performed By: #### 1 8233496, 7692897, 2669090, 5712112, 6278714, 1853932 #### [facility] [address] [place] [address] Globulin (S) [Mass/Vol] 3.7 g/dL Normal 1.4-4.0 [facility] Comment on above: Performed By: #### 1 5543563, 7183012, 8115320, 0171804, 8398619, 7551226 #### [facility] [address] [place] [address] 97677 Protein [Mass/Vol] 8.9 g/dL High 6.0-7.8 [facility] Comment on above: Performed By: #### 1 4447886, 6237090, 6906534, 3915464, 7449781, 9951941 #### [facility] [address] [place] [address] Urea nitrogen [Mass/Vol] 28 mg/dL High 5-21 [facility] Comment on above: Performed By: #### 1 5242893, 8168864, 8550181, 2125574, 2774171, 6514104 #### [facility] [address] [place] [address] Urea nitrogen/Creatinine [Mass ratio] 28 No Units High 10-20 [facility] Comment on above: Performed By: #### 1 6017315, 3585970, 8928476, 7013186, 7938727, 8180356 #### [facility] [address] [place] [address] Anion gap [Moles/Vol] 16 mmol/L Normal 6-16 [facility] Comment on above: Performed By: #### 1 3110523, 2566071, 8882230, 7940418, 7574316, 2820349 #### [facility] [address] [place] [address] Calcium [Mass/Vol] 9.9 mg/dL Normal 8.9-11.1 [facility] Comment on above: Performed By: #### 1 6214667, 4428355, 0499286, 0959199, 6030797, 3458206 #### [facility] [address] [place] [address] Chloride [Moles/Vol] 103 mmol/L Normal 101-111 [facility] Comment on above: Performed By: #### 1 8390364, 5225662, 6876527, 3056521, 2924979, 6438846 #### [facility] [address] [place] [address] CO2 [Moles/Vol] 25 mmol/L Normal 21-31 [facility] Comment on above: Performed By: #### 1 9365950, 6470983, 1580687, 3476238, 4951643, 6762686 #### [facility] [address] [place] [address] Glucose [Mass/Vol] 145 mg/dL Normal 55-199 [facility] Comment on above: Result Comment: If t his glucose result represents a fasting glucose, interpretation should refer to the following reference range: 55-99 mg/dL Performed By: #### 1 1049331, 1598169, 1372321, 5753610, 1001319, 7978648 #### [facility] [address] [place] [address] Potassium [Moles/Vol] 3.8 mmol/L Normal 3.5-5.3 [facility] Comment on above: Performed By: #### 1 9236167, 2204733, 2755934, 2609422, 9814801, 4396996 #### [facility] [address] [place] [address] 34197 Sodium [Moles/Vol] 140 mmol/L Normal 135-145 [facility] Comment on above: Performed By: #### 1 8730551, 1481647, 5659969, 6743019, 8108510, 5434315 #### [facility] [address] [place] [address] 85766 ED Clinical Summaryon 2018 ED Clinical Summary [address] [address] ED Clinical Summary Person Information Name: AMNA AMES Kathleen/[facility] Age: 34 Years : 1985 Sex: Male Language: Uzbek PCP: SANKET GONSALVES DO Marital Status: Visit [...] 03:41:43 10/04/2019 03:41:43 AD[address]: [address] [place] [address] PHYS DOC NOTES: MEDICAL INFORMATION: Prescriptions Given: New Medications Printed Prescriptions atropine-diphenoxyla te (Lomotil oral tablet) 2 Tablets By Mouth 4 times a day as needed for loose stools. Refills: 0. ondansetron (Zofran ODT 4 mg Tab) 1 Tablets By Mouth 4 times a day. Refills: 0. PATIENT EDUCATION INFORMATION: Instructions: Viral Gastroenteritis Follow up: With: Address: When: SANKET GONSALVES [address] [place] [address] Business (1) In 3 days 10/07/2019 DIAGNOSIS: 1:Gastroenteritis Normal [facility] ED Note-Physicianon 10-04-20 ED Note-Physician Basic Information Time Seen: Michael Mao MD 10/04/2019 00:30 Chief Complaint complains of vomtiing and diarrhea since 1700 tonight. unable to keep anything down. states feels dehydrated History of Present Illness presents with recurrent vomiting and diarrhea for the past 6 hours. Did go to a work [employer] party tonight. Others ate same food and reportedly [...] (10/04/19:35:00) Lymph Auto: 1.3 % Low (10/04/19:35:00) [place] Auto: 5.6 % (10/04/19 00:35:00) Eos Auto: 0.1 % (10/04/19:35:00) Basophil Auto: 0.1 % (10/04/19 00:35:00) Neutro Absolute: 13.6 E9/L High (10/04/19:35:00) Lymph Absolute: 0.2 E9/L Low (10/04/19:35:00) [place] Absolute: 0.8 E9/L (10/04/19:35:00) Eos Absolute: 0 [...] Results No qualifying data available. Normal [facility] Comment on above: Result Comment: Elec [...] avoid spreading the virus. ? Only take twhp-kik-srgbveu or prescription medicines for pain, discomfort, or fever as directed by your caregiver. Do not give aspirin to children. Antidiarrheal medicines are not recommended. ? Ask your caregiver if you should continue to take your regular prescribed and nyer-mia-mihjrhr medicines. ? Keep all follow-up appointments as [...] Document Reviewed: 07/23/2012 ExitCare? Patient Information ?2015 [email or web address], [employer]. This information is not intended to replace advice given to you by your health care provider. Make sure you discuss any questions you have with your health care provider. Normal [facility] ED Patient Summaryon 019 ED Patient Summary [address] [place] [address] Patient Discharge Instructions Person Information Name: AMNA AMES Age: 34 Years Arrival Date: 10/04/2019 00:11:34 Discharge Diagnosis: 1:Gastroenteritis Primary Care Physician: SANKET GONASLVES DO Provider Information Primary Provider: Michael Mao MD [employer] Maker:None The exam and treatment you received in the Emergency Department were for an urgent problem and are not intended as complete care. It is important that you follow up with a doctor, nurse practitioner, or physician?s environmental emergencies assistant for ongoing care. If your symptoms [...] Follow-up Instructions: With: Address: When: SANKET GONSALVES [address] [place], [place] [id number] [facility] (1) In 3 days 10/07/2019 In the event that this physician does not participate in your insurance network, please consult with your insurance company to find a nearby participating provider. Patient Education Materials: Viral Gastroenteritis A MESSAGE TO ALL PATIENTS REGARDING OPIOIDS PRESCRIPTION OPIOIDS: WHAT YOU NEED TO KNOW Prescription opioids can be used to help relieve jfurdaeh-wd-ueicex pain and are often prescribed following a [...] be struggling with addiction, tell your health home health care worker and ask for guidance or call SAMHSA?S National Helpline at 9-938-123-IRDD. v Source: [place] Department of Health and Human Services/Center for Disease Control & Prevention [facility] Medications Given: Medication Dose Route [...] a day. Refills: 0. Comment: Pharmacy Information: [facility] [place] Thank you for choosing [facility] Patient Education Materials: Viral Gastroenteritis Viral gastroenteritis [...] avoid spreading the virus. ? Only take wpss-aka-jcorlwh or prescription medicines for pain, discomfort, or fever as directed by your caregiver. Do not give aspirin to children. Antidiarrheal medicines are not recommended. ? Ask your caregiver if you should continue to take your regular prescribed and xein-niu-tuadyqt medicines. ? Keep all follow-up appointments as [...] Document Reviewed: 07/23/2012 ExitCare? Patient Information ?2015 [employer]. This information is not intended to replace advice given to you by your health care provider. Make sure you discuss any questions you have with your health care provider. IKWAKU CHRISTOPHER M , have received the following patient education materials/instructio ns and have verbalized understanding: Patient Education Materials: Viral Gastroenteritis Follow-up Instructions: With: Address: When: SANKET GONSALVES [address] [facility] [place] [address] Business (1) In 3 days 10/07/2019 Patient Signature Date Clinician/Nurse Signature Date 10/04/2019 03:41:45 Normal [facility] Lipase Levelon 10-04-2019 Lipase [Catalytic activity/Vol] 36 unit/L Normal 13-58 [facility] Comment on above: Performed By: #### 1 [id number], 8095363, 5729809, 0366609, 0211398, 2343177 #### [facility] [address] [place] [address] Progress Note-Nurseon 2018 Progress Note-Nurse pt drank 32 oz of water with no nausea/vomiting noted. States feels better. Notified Normal [facility] UA With Cult Reflexon 2018 Bacteria LM Ql (Urine sed) TRACE Normal Trace [facility] Comment on above: Performed By: #### 1 [id number] #### [facility] [address] [place] [address] Bilirubin Ql (U) Negative Normal Negative [facility] Comment on above: Performed By: #### 1 4609739 #### [facility] [address] [place] [address] Clarity (U) CLEAR Normal Clear [facility] Comment on above: Performed By: #### 1 1383711 #### [facility] [address] [place] [address] Color (U) YELLOW Normal Yellow [facility] Comment on above: Performed By: #### 1 0385470 #### [facility] [address] [place] [address] Epithelial cells.squamous LM.HPF (Urine sed) [#/Area] 0-2 Normal 0-2 [facility] Comment on above: Performed By: #### 1 9469410 #### [facility] [address] [place] [address] Glucose Test strip (U) [Mass/Vol] Negative Normal Negative [facility] Comment on above: Performed By: #### 1 4164088 #### [facility] [address] [place] [address] Hemoglobin Ql (U) Negative Normal Negative [facility] Comment on above: Performed By: #### 1 9367599 #### [facility] [address] [place] [address] Ketones (U) [Mass/Vol] 2+ Abnormal Negative [facility] Comment on above: Performed By: #### 1 6325477 #### [facility] [address] [place] [address] [place].plasma/Lithi um.RBC (Bld) [Mass ratio] 0-3 Normal 0-3 [facility] Comment on above: Performed By: #### 1 3734394 #### [facility] [address] [place] [address] Mucus Ql (Urine sed) 2+ Normal [facility] Comment on above: Performed By: #### 1 6611684 #### [facility] [address] [place] [address] Nitrite Ql (U) Negative Normal Negative [facility] Comment on above: Performed By: #### 1 4801531 #### [facility] [address] [place] [address] pH (U) 7.0 [pH] 5.0-9.0 [facility] Comment on above: Performed By: #### 1 1223148 #### [facility] [address] [place] [address] Protein (U) [Mass/Vol] TRACE Abnormal Negative [facility] Comment on above: Performed By: #### 1 4897423 #### [facility] [address] [place] [address] Specific gravity (U) [Rel density] 1.020 1.005-1.030 [facility] Comment on above: Performed By: #### 1 2184919 #### [facility] [address] [place] [address] UA Spec Desc Clean Catch Normal [facility] Comment on above: Performed By: #### 1 9578081 #### [facility] [address] [place] [address] Urobilinogen Qn (U) 0.2 {Jennifer'U}/dL Normal 0.0-1.0 [facility] Comment on above: Performed By: #### 1 1248985 #### [facility] [address] [place] [address] WBC Auto Ql (U) Negative Normal Negative [facility] Comment on above: Performed By: #### 1 3189291 #### [facility] [address] [place] [address] WBC LM.HPF (Urine sed) [#/Area] 0-5 Normal 0-5 [facility] Comment on above: Performed By: #### 1 0188610 #### [facility] [address] [place] [address] eGFRon 10-04-2019 GFR/1.73 sq M predicted among blacks MDRD (S/P/Bld) [Vol rate/Area] mL/min/{1.73_m2} Normal >=59 [facility] Comment on above: Order Comment: Order added by Discern Expert. Result Comment: eGFR is race adjusted. AA=. Performed By: #### 1 9679183, 4548979, 0756380, 6926494, 5547732, 6855920 #### [facility] [address] [place] [address] GFR/1.73 sq M predicted among non-blacks MDRD (S/P/Bld) [Vol rate/Area] mL/min/{1.73_m2} Normal >=59 [facility] Comment on above: Order Comment: Order added by Discern Expert. Result Comment: Sales Planning Analyst ritesh kidney disease could be indicated at eGFR's of less than 60 mL/min/1.73m2. Kidney failure is indicated at less than 15 mL/min/1.73m2. Performed By: #### 1 [id number], [id number], [id number], [id number] #### [facility] [address] [place] [address] Vital Signs Date Time Vital Sign Value Performing Clinician Facility 12-08-2024 15:52-0500 Body height 175.[address] [facility] 12-08-2024 15:52-0500 Body mass index (BMI) [Ratio] 30.2 kg/m2 [facility] 12-08-2024 15:52-0500 Body weight 92.[address] [facility] 12-08-2024 15:52-0500 Diastolic blood pressure 85 mm[Hg] [facility] 12-08-2024 15:52-0500 Heart rate 71 /min [facility] 12-08-2024 15:52-0500 Respiratory rate 12 /min [facility] 12-08-2024 15:52-0500 Systolic blood pressure 136 mm[Hg] [facility] 06-19-2024 11:16-0400 Body height 175.[address] [facility] 06-19-2024 11:16-0400 Body mass index (BMI) [Ratio] 28.5 kg/m2 [facility] 06-19-2024 11:16-0400 Body weight 87.[address] [facility] 06-19-2024 11:16-0400 Diastolic blood pressure 78 mm[Hg] [facility] 06-19-2024 11:16-0400 Heart rate 58 /min [facility] 06-19-2024 11:16-0400 Respiratory rate 12 /min [facility] 06-19-2024 11:16-0400 Systolic blood pressure 125 mm[Hg] [facility] 01-07-2024 14:37-0400 Body height 175.[address] [facility] 01-07-2024 14:37-0400 Body mass index (BMI) [Ratio] 29 kg/m2 [facility] 01-07-2024 14:37-0400 Body weight 89.[address] [facility] 01-07-2024 14:37-0400 Diastolic blood pressure 85 mm[Hg] [facility] 01-07-2024 14:37-0400 Heart rate 56 /min [facility] 01-07-2024 14:37-0400 Respiratory rate 12 /min [facility] 01-07-2024 14:37-0400 Systolic blood pressure 132 mm[Hg] [facility] 12-10-2022 11:00-0500 Body height 165.1 cm Sanket Ball Other [facility] Other 12-10-2022 11:00-0500 Body mass index (BMI) [Ratio] 33.61 kg/m2 Sanket Ball Other [facility] Other 12-10-2022 11:00-0500 Body weight 91.63 kg Sanket Ball Other [facility] Other 12-10-2022 11:00-0500 Diastolic blood pressure 76 mm[Hg] Sanket Ball Other [facility] Other 12-10-2022 11:00-0500 Respiratory rate 12 /min Sanket Ball Other [facility] Other 12-10-2022 11:00-0500 Systolic blood pressure 122 mm[Hg] Sanket Ball Other [facility] Other Encounters Encounter Date Encounter Type Care Provider Facility Start: 12-11-2024 End: 12-11-2024 ambulatory [facility] Work Phone: Start: 12-11-2024 End: 12-11-2024 Patient encounter procedure [facility] Physician [facility] Work Phone: Start: 12-08-2024 End: 12-08-2024 ambulatory [facility] Work Phone: Start: 12-08-2024 End: 12-08-2024 Patient encounter procedure [facility] Physician [facility] Work Phone: Start: 12-03-2024 Non-patient / Non-visit [facility] Physician [facility] Work Phone: Start: 12-02-2024 Non-patient / Non-visit [facility] Physician [facility] Work Phone: Start: 06-19-2024 End: 06-19-2024 ambulatory [facility] Work Phone: Start: 06-19-2024 End: 06-19-2024 Patient encounter procedure [facility] Physician [facility] Work Phone: Start: 06-05-2024 Non-patient / Non-visit [facility] Physician [facility] Work Phone: Start: 01-07-2024 End: 01-07-2024 ambulatory [facility] Work Phone: Start: 01-07-2024 End: 01-07-2024 Encounter for general adult medical examination without abnormal findings [facility] Start: 01-07-2024 End: 01-07-2024 Patient encounter procedure [facility] Physician [facility] Work Phone: Start: 07-08-2023 End: 07-08-2023 ambulatory ARISTEO C ELENO Facility:[facility] Start: 04-01-2023 End: 04-01-2023 ambulatory ARISTEO C ELENO Facility:[facility] Start: 12-27-2022 Telephone encounter Aristeo kitchen MD Work Phone: Urology Comment on above: Procedure Start: 12-21-2022 End: 12-21-2022 ambulatory ARISTEO LANGE Facility:[facility] Start: 12-10-2022 End: 12-10-2022 ambulatory Sanket Gonsalves Other [facility] Other Start: 12-10-2022 Encounter for genera l adult medical examination without abnormal findings Sanket Gonsalves [facility] Start: 12-10-2022 Periodic preventive med est patient 18-39 yrs Sanket Gonsalves [facility] Start: 06-07-2022 End: 06-08-[address] SANKET GONSALVES Facility:[facility] Plan of Treatment Date Care Activity Detail Author Start: 10-21-2022 DEPRESSION ASSESSMENT DEPRESSION ASS ESSMENT [facility] Start: 2022 LIPID SCREEN LIPID SCREEN [facility] Start: 2006 Urine microalbumin profile DTAP,TDAP ,TD (1 - Tdap) [facility] Start: 2005 HEPATITIS C SCREENING HEPATITIS C SC REENING [facility] Start: 2005 HIV SCREENING HIV SCREENING [facility] Start: 1987 HEPATITIS B (1 of 3 - 3-dose series) HEPATITIS B (1 of 3 - 3-dose series) [facility] Immunizations Immunization Date Immunization Notes Care Provider Fa davon 09-03-2022 Pfizer/Comirnaty, Pediatric Age 5-11 [facility] Payers Date Payer Category Payer Unknown MMO M[employer] PPO [id number] 2016-Present [phone] [address] [place] [address] PPO [id number] 2016 Unknown [id number] 1959 Self-pay [id number] Unknown [id number] Social History Date Type Detail Facility Tobacco smoking status NHIS Tobacco smoking consumption unknown [facility] Start: 1987 Sex Assigned At Not on file [facility] Sex Assigned At Sex Assigned At [facility] Other Start: 1987 Sex Assigned At Male F [facility] Start: 12-08-2024 End: 12-11-2024 Sex Male (finding) [facility] Clinical Notes 12-10-2022 to 12-08-2024 Note Date & Type Note Facility 12-08-2024 Evaluation note Diagnosis Onset Date Resolution Concussion acute December 08, 2024 3:25pm Laceration of scalp noneactive Febru ginna2024 3:25pm Contusion of hip, right noneactive December 08 3:25pm Sprain of wrist, right noneactive Fe bruary 2024 3:25pm Laceration of scalp noneactive Febru 2024 1:29pm [facility] Work Phone: [phone] NoteHNO ID: [id number] Author: Aristeo Lange MD Service: ? Author [...] pt with verbalization of understanding. Aristeo Lange [facility]03-10-2023 Miscellaneous Notes* Telephone Encounter - Jacek Small [...] with Lenora for the procedure if possible. [facility] NoteHNO ID: [id number] Author: Aristeo Lange MD Service: ? Author Type: Physician Type: Progress Notes Filed: 12/21/2022 3:27 PM Note Text: This is a Virtual Visit. It required Yboonwc-vd-[id number] Interaction with medical decision making as documented [...] 50% of time in counseling Aristeo Lange, [facility]03-03-2023 Reason for referral (narrative)* Reason 12/21/22 Referral for scalpel free vasectomy with the [facility] Diagnosis 1 Encounter for vasect samia counseling (Z30.09) Referral Organization [facility] Referring Provider First Name Sanket Referring Provider Last Name Major Referring Provider Specialty Internal Me thai Referred Organization [facility] Referred Provider Jerman De Jesus Referred Address [address] [place], [place],[address] Referred Provider Specialty Urology Referral Priority Routine [...] time. Clinical Notes Dr. Aristeo Lange P: [phone] F: [id number] [facility] Other 02-20-2023 Evaluation note* Encounter Date Diagnosis [...] Would like to be referred to [facility] for scapel free procedure [facility] Other Chief complaint+Reason for visit Narrative* Chief Complaint referral for shoulde r Reason for Visit Wellness examination [facility] Work Phone: Evaluation note* Diagnosis Onset Date Resolution Status Wellness examination noneact mamie [facility] Work Phone: Evaluation noteNo assessment information available [facility] Work Phone: Evaluation note* Diagnosis Onset Date Resolution Status Admit Date Concussion acute December 08, 2024 3:25pm Laceration of scalp noneactive Febru ginna 2024 3:25pm Contusion of hip, right noneactive F ebruary 2024 3:25pm Sprain of wrist, right noneactive Fe bruary 2024 3:25pm [facility] Work Phone: History general Narrative - Reported* Type Description Date Medical History Spermatocele of epididymis, sing le Medical History Acute paronychia of finger of le ft hand Medical History Abrasion of palm of right hand, initial encounter Medical History Over weight [facility] Other Summary Purpose Family History Relationship Condition [...] section and content) DATE CREATED AUTHOR 05/12/2020 [facility] DATE CREATED AUTHOR AUTHOR'S ORGANIZ ATION 06/13/2022 [facility] DATE CREATED AUTHOR AUTHOR'S ORGANIZ ATION 07/09/2023 [facility] Source Comments (unrecognize d section and content) In the event this informatio n is protected by the Federal Confidentiality of Alcohol and Drug Abuse Patient Records regulations: The Federal rules restrict any use of the information to criminally investigate or prosecute any alcohol or drug abuse patient.[facility] Reason for Visit (unrecogniz ed [...] June 19, 2024 End: June 19, 2024 Medical Billing And Coding Specialist Relationship Specialty Start Date End Date Sanket Gonsalves DO [address] [place] [address] Referring Internal Medicine 12/18/22 Team Status: Inactive [...] Care Provider Active Start: December 03, 2024 Ban Stanford CMA Attending Provider Active Start: December [...] BE BASED ON THE PRIMARY CLINICAL RECORDS. [facility] [employer] provides no warranty or guarantee of the accuracy or completeness of information in this document.
== END 2025-02-08 07:42 | disposition home or self-care (01) ==
LOC: EC 07:41
PROVIDERS: PCP Internal Medicine; Visit Provider Orthopaedic Surgery
DX: S52.591G Other fractures of lower end of right radius, subsequent encounter for closed fracture with delayed healing (principal)
CPT/HCPCS: 73110

== ENCOUNTER 2025-05-03 15:59 | Outpatient (OUT) | payer OTHER, SELFPAY ==
--- OUTSIDE RECORDS SUMMARY | 2025-05-03 16:03 | XMS_ITS | Clinical Summary ---
Author Organization [facility] Address [address] [place] [address] Care Team Providers Care Physician [facility] Name Role Phone Sanket Gonsalves DO Unavailable Social History Tobacco Use Types Packs/Day Years Used Date Smoking Tobacco: Never Assessed Area Deprivation Index Answer Date Jaspal rded National Score (1-100), lower number is lower ri sk 60 12/21/2022 State Score (1-10), lower number is lower risk N ot on file 12/21/2022 Data from: https://www.neighborhoodatlas.medicine.[facility].edu/. Last address used for calculation Hans Fernandez 12/21/2022 Sex and Gender Information Value Date Recorded Sex Assigned at Not on file Legal Sex Male 12:54 PM EST Gender Identity Not on file Sexual Orientation Not on file Last Filed Vital Signs Vital Sign Reading Time Taken Comments Blood Pressure 125/79 04/01/2023 8:41 AM EDT Pulse 58 04/01/2023 8:41 AM EDT Temperature - - Respiratory Rate - - Oxygen Saturation - - Inhaled Oxygen Concentration - - Weight - - Height - - Body Mass Index - - Plan of Treatment Health Maintenance Due Date Last Done Comments Anxiety Screening 2005 Depression Screening 2005 HIV Screening 2005 Hepatitis C Screening 2005 DTaP,Tdap,Td Vaccine (1 - Tdap) 2006 Hepatitis B Vaccine (1 of 3 - 19+ 3-dose series) 2006 Lipid Screening 2022 Covid-19 Vaccine (5 - 4-2 5 season) 2024 09/03/2022, 07/24/2021, 12/23/2020, Additional history exists Influenza Vaccine (#1) 2025 , 07/11/2021, 07/11/2020, Additional history exists Insurance [facility] PPO Care Teams Physician [facility] Relationship Specialty Start Date End Date Sanket Gonsalves DO [address] [place], [place] [id number] Referring Internal Medicine 12/18/22
--- OUTSIDE RECORDS SUMMARY | 2025-05-03 16:03 | XMS_ITS | Patient Health Record ---
Author Organization [facility] Address [address] [place] [address] Care Team Providers Care Clinical Asst Name Role Phone Mansoor Fregoso Unavailable [phone] PaulFrannie Unavailable [phone] InaDelLinh Unavailable Allergies No Known Allergies Results Component Value Reference Range Notes MRI : Wrist W/O Contrast Rig ht - [id number] Reviewed date:03/10/2025 09:42:45 AM Interpretation: Performing Lab: Notes/Report: Reason For Referral Reason APPROVED ........... .PLEASE OBTAIN AUTHORIZATION FOR MRI RIGHT WRIST STAT Diagnosis 1 Acute pain of right wrist (M25.531) Referral Organization [facility] Referring Provider First Name Mansoor Referring Provider Last Name Zenobia Referring Provider Speciality Orthopedic Surgery Referred Organization [facility] cristin Referred Address [place], [place], Procedure 1 MRI Joint Upper Ext w/o Dye ([id number]) General Notes Marina Kincaid 025 12:46:30 PM >NEED DICT STATDmitri Kimberly 12/07/2024 03:23:22 PM >Printed for dictationEnoch Monica 12/08/2024 04:22:36 PM >doneCodi Amy 12/09/2024 08:12:07 AM >APPROVED PER [facility] Authorization #[id number] Tracking #[id number] VALID 12/08/2024-01/22/2025 COPY IN CHART MA NOTIFIED REF FAXED TO Enoch MAHER Monica 12/09/2024 10:24:15 AM > FAXED ORDER, PATIENT NOTIFIED Referral Priority Routine Medications Medication SIG (Take, Route, Frequency, Duration) Notes Start Date End Date Status Tylenol Active Social History Tobacco Use: Social History Observation Description Date Details (start date - stop date) Never Smoker NA - NA AUDIT-C (Standard) Question Answer Notes Did you have a drink containing alcohol in the p ast year? No Points 0 Interpretation Negative Tobacco Control (Standard) Question Answer Notes Tobacco use: Nonsmoker Problems Problem Type SNOMED Code ICD Code Onset Dates Problem Status W/U Status Risk Notes Problem [id number] Other fractures of lower end of right radius, subsequent encounter for closed fracture with routine healing (S52.591D) Active confirmed Vital Signs Height 5'9 in 01/11/2025 Weight 195 lbs 01/11/2025 BMI 28.79 01/11/2025 Encounters Encounter Location Date Provider Diagnosis [facility] [address] [place] [address] 12/07/2024 Mansoor Fregoso Acute pain of right wrist M25.531 [facility] [address] [place] [address] 12/11/2024 Frannie Paul Other closed fracture of distal end of right radius, initial encounter S52.591A [facility] [address] [facility] [place] [address] [facility]/11[facility]20[facility] closed fracture of distal end of right radius, initial encounter S52.591A [facility] [address] [facility] [place] [address] [place] [address] 02/08/2025 [facility] Other fractures of lower end of right radius, subsequent encounter for closed fracture with routine healing S52.591D [facility] [address] [place] [address] 12/11/2024 Mansoor Fregoso Assessments Encounter Date Diagnosis (ICD Code) Assessment Notes Treatment Notes Treatment Clinical Notes Section Notes 12/07/2024 Acute pain of right wrist (ICD-10 - M25.531) 12/11/2024 Other closed fracture of distal end of right radius, initial encounter (ICD-10 - S52.591A) 01/11/2025 Other closed fracture of distal end of right radius, initial encounter (ICD-10 - S52.591A) 02/08/2025 Other fractures of lower end of right radius, subsequent encounter for closed fracture with routine healing (ICD-10 - S52.591D) [] 12/07/2024 Other For his right wrist injury I recommended an MRI scan to evaluate for scapholunate ligament tear and the need for surgical intervention. He will follow-up once the MRI is complete. Import medication 12/11/2024 Other For his distal radius fracture I recommended immobilization. He would prefer to have a removable brace and I have advised for him to get an EXOS brace hjfj-feo-zxdywai and treat it like a cast. He will avoid any lifting pushing or pulling. Will see him back in a month to repeat x-rays and reassess his progress. Plan has been agreed upon by my supervising physician, []MD. 01/11/2025 Other Patient is [place] cox well and is now 6 weeks out from injury. He will start to wean out of the brace and work on ROM of the wrist a few times a day. We discussed limiting pushing/pulling/l ifting for the next month. We will see him back in 4 weeks to repeat x-rays and reassess his progress. 02/08/2025 Other Patient is now 10 weeks out from injury and doing well. He is back to his baseline activities and having no pain. We will see him back on a as needed basis. [] Plan Of Treatment Pending Test Test Name Order Date SCC- WRIST 3 VIEW RIGHT [id number] 01/11/2025 SCC- WRIST 3 VIEW RIGHT [id number] 02/08/2025 Insurance Providers Payer Name Payer Address Payer Phone Subscriber Number Group Number Insured Name Patient Relationship to Insured Coverage Start Date Coverage End Date [facility] [address] [place] [address] [id number] CELIA AMES Self - patient is the insured
--- OUTSIDE RECORDS SUMMARY | 2025-05-03 16:03 | XMS_ITS | Encounter Summary ---
Author Organization [facility] Address [address] [place] [address] Care Team Providers Care Freight Car Cleaner Name Role Phone Sanket Gonsalves DO Primary Care Provider [phone] Encounter Details Date Type Department Care Team (Late st Contact Info) Description 05/30/2023 Abstract [facility] [address] [facility] [place] [address] Becky Mccauley, [facility] [address] [place] [address] Social History Tobacco Use Types Packs/Day Years Used Date Smoking Tobacco: Never Assessed Sex and Gender Information Value Date Recorded Sex Assigned at Not on file Legal Sex Male 4:11 PM EDT Gender Identity Not on file Sexual Orientation Not on file documented as of this encounter Plan of Treatment Not on file documented as of this encounter Visit Diagnoses Not on filedocumented in this encounter Care Teams Freight Car Cleaner Relationship Specialty Start Date End Date Sanket Gonsalves DO PCP - General Internal Medicine 05/09/23 documented as of this encounter
--- OUTSIDE RECORDS SUMMARY | 2025-05-03 16:03 | XMS_ITS | Encounter Summary ---
Author Organization [facility] Address [address] [place] [address] Care Team Providers Care Cementer Machine Joiner Name Role Phone Sanket Gonsalves DO Unavailable [phone] Source Comments In the event this information is protected by the Federal Confidentiality of Alcohol and Drug AbusePatient Records regulations: The Federal rules restrict any use of the information to criminally investigate or prosecute any alcohol or drug abuse patient.[facility] Encounter Details Date Type Department Care Team (Late st Contact Info) Description 12/21/2022 Patient Msg Urology [address] [place], [place] [id number] Annel Lange MD [address] [facility] [place], [place] [id number] vasectomy video Social History Tobacco Use Types Packs/Day Years Used Date Smoking Tobacco: Never Assessed Area Deprivation Index Answer Date Jaspal rded National Score (1-100), lower number is lower ri sk 60 12/21/2022 State Score (1-10), lower number is lower risk N ot on file 12/21/2022 Data from: https://www.neighborhoodatlas.medicine.[facility]/. Last address used for calculation [address] 12/21/2022 Sex and Gender Information Value Date Recorded Sex Assigned at Not on file Legal Sex Male 12:54 PM EST Gender Identity Not on file Sexual Orientation Not on file documented as of this encounter Plan of Treatment Not on file documented as of this encounter Visit Diagnoses Not on filedocumented in this encounter Care Teams Cementer Machine Joiner Relationship Specialty Start Date End Date Sanket Gonsalves DO [address] [place] [address] Referring Internal Medicine 12/18/22 documented as of this encounter
--- OUTSIDE RECORDS SUMMARY | 2025-05-03 16:03 | XMS_ITS | Clinical Summary ---
Author Organization [facility] Address [address] [place] [address] Care Team Providers Care Supply Chain Systems Manager Name Role Phone Sanket Gonsalves DO Primary Care Provider [phone] Social History Tobacco Use Types Packs/Day Years Used Date Smoking Tobacco: Never Assessed Sex and Gender Information Value Date Recorded Sex Assigned at Not on file Legal Sex Male 4:11 PM EDT Gender Identity Not on file Sexual Orientation Not on file Plan of Treatment Health Maintenance Due Date Last Done Comments Influenza Vaccine (#1) 2025 2, 07/11/2021, 07/11/2020, Additional history exists Insurance [employer] Care Teams Supply Chain Systems Manager Relationship Specialty Start Date End Date Sanket Gonsalves DO PCP - General Internal Medicine 05/09/23
== END 2025-05-03 16:00 | disposition home or self-care (01) ==
LOC: LAB 16:00
PROVIDERS: PCP Internal Medicine; Visit Provider Nurse Practitioner Family
DX: R21 Rash and other nonspecific skin eruption (principal); W57.XXXA Bitten or stung by nonvenomous insect and other nonvenomous arthropods, initial encounter
CPT/HCPCS: 36415; 86618

== ENCOUNTER 2025-06-01 15:56 | Outpatient (OUT) | payer OTHER, SELFPAY ==
--- OUTSIDE RECORDS SUMMARY | 2025-06-01 16:01 | XMS_ITS | Clinical Summary ---
Author Organization [facility] Address [address] [place] [address] Care Team Providers Care Fretted Instrument Inspector Name Role Phone Sanket Gonsalves DO Primary Care Provider [phone] Social History Tobacco Use Types Packs/Day Years [...] history exists Insurance [employer] Care Teams Fretted Instrument Inspector Relationship Specialty Start Date End Date Sanket Gonsalves DO PCP - General Internal Medicine 05/09/23
--- OUTSIDE RECORDS SUMMARY | 2025-06-01 16:01 | XMS_ITS | Patient Health Record ---
Author Organization [facility] Address [address] [place] [address] Care Team Providers Care Interactive Developer Name Role Phone Mansoor Fregoso Unavailable [phone] PaulFrannie Unavailable [phone] Ina Linh Unavailable Allergies No Known Allergies Results Component Value Reference Range Notes MRI : Wrist W/O Contrast Rig ht - [id number] Reviewed date:03/10/2025 09:42:45 AM Interpretation: Performing Lab: Notes/Report: Reason For Referral Reason APPROVED ........... .PLEASE OBTAIN AUTHORIZATION FOR MRI RIGHT WRIST STAT Diagnosis 1 Acute pain of right wrist (M25.531) Referral Organization [facility] Referring Provider First Name Mansoor Referring Provider Last Name Zenobia Referring Provider Speciality Orthopedic Surgery Referred Organization [facility]istin Referred Address [place], [place], Procedure 1 MRI Joint Upper Ext w/o Dye ([id number]) General Notes Marina Kincaid 025 12:46:30 PM >NEED DICT STATDmitri Kimberly 12/07/2024 03:23:22 PM >Printed for dictationEnoch Monica 12/08/2024 04:22:36 PM >doneCodi Amy 12/09/2024 08:12:07 AM >APPROVED PER [facility] Authorization #[id number] Tracking #[id number] VALID 12/08/2024-01/22/2025 COPY IN CHART MA NOTIFIED [...] Problem Status W/U Status Risk Notes Problem [id number] Other fractures of lower end of right radius, subsequent encounter for closed fracture with routine healing (S52.591D) Active confirmed Vital Signs Height 5'9 in 01/11/2025 Weight 195 lbs 01/11/2025 BMI 28.79 01/11/2025 Encounters Encounter Location Date Provider Diagnosis [facility] [address] [place] [address] 12/07/2024 Mansoor Fregoso Acute pain of right wrist M25.531 [facility] [address] [place] [address] 12/11/2024 Frannie Paul Other closed fracture of distal end of right radius, initial encounter S52.591A [facility] [address] [facility] [place] [address] [place] [address] 01/11/2025 [facility] Other closed fracture of distal end of right radius, initial encounter S52.591A [facility] [address] [facility] [place] [address] [place] [address] 02/08/2025 [facility] Other fractures of lower end of right radius, subsequent encounter for closed fracture with routine healing S52.591D [facility] [address] [place] [address] 12/11/2024 Mansoor Fregoso Assessments Encounter Date Diagnosis [...] for him to get an EXOS brace [id number] and treat it like a cast. He [...] Order Date [facility]- WRIST 3 VIEW RIGHT [id number] 01/11/2025 [facility]- WRIST 3 VIEW RIGHT 03811 02/08/2025 Insurance Providers Payer Name Payer Address Payer Phone Subscriber Number Group Number Insured Name Patient Relationship to Insured Coverage Start Date Coverage End Date [facility] [address] [place] [address] [id number] CELIA AMES Self - patient is the insured
--- OUTSIDE RECORDS SUMMARY | 2025-06-01 16:01 | XMS_ITS | Clinical Summary ---
Author Organization [facility] Address [address] [place] [address] Care Team Providers Care Key Account Coordinator Name Role Phone Sanket Gonsalves DO Unavailable [phone] Social History Tobacco Use Types Packs/Day Years Used Date Smoking Tobacco: Never Assessed Area Deprivation Index Answer Date Jaspal rded National Score (1-100), lower number is lower ri sk 60 12/21/2022 State Score (1-10), lower number is lower risk N ot on file 12/21/2022 Data from: https://www.neighborhoodatlas.medicine.[facility].edu/. Last address used for calculation [address] [...] 19+ 3-dose series) 2006 Lipid Screening 2022 Influenza Vaccine (#1) 2025 2, 07/11/2021, 07/11/2020, Additional history exists Insurance [facility] PPO Care Teams Key Account Coordinator Relationship Specialty Start Date End Date Sanket Gonsalves DO [address] [place] [address] Referring Internal Medicine 12/18/22
--- OUTSIDE RECORDS SUMMARY | 2025-06-01 16:01 | XMS_ITS | Encounter Summary ---
Author Organization [facility] Address [address] [place] [address] Care Team Providers Care Sound Effects Person Name Role Phone Sanket Gonsalves DO Unavailable [phone] Source Comments In the event this information is protected by the Federal Confidentiality of Alcohol and Drug AbusePatient Records regulations: The Federal rules restrict any use of the information to criminally investigate or prosecute any alcohol or drug abuse patient.[facility] Encounter Details Date Type Department Care Team (Late st Contact Info) Description 12/21/2022 Patient Msg Urology [address] [place], [place] [id number] Annel Lange MD [address] [facility] [place], [place] [address] vasectomy video Social History Tobacco Use Types Packs/Day Years Used Date Smoking Tobacco: Never Assessed Area Deprivation Index Answer Date Jaspal rded National Score (1-100), lower number is lower ri sk 60 12/21/2022 State Score (1-10), lower number is lower risk N ot on file 12/21/2022 Data from: https://www.neighborhoodatlas.medicine.[facility]/. Last address used for calculation [address] 12/21/2022 Sex and Gender Information Value Date Recorded Sex Assigned at Not on file Legal Sex Male 12:54 PM EST Gender Identity Not on file Sexual Orientation Not on file documented as of this encounter Plan of Treatment Not on file documented as of this encounter Visit Diagnoses Not on filedocumented in this encounter Care Teams Sound Effects Person Relationship Specialty Start Date End Date Sanket Gonsalves DO [address] [place] [address] Referring Internal Medicine 12/18/22 documented as of this encounter
--- OUTSIDE RECORDS SUMMARY | 2025-06-01 16:01 | XMS_ITS | Encounter Summary ---
Author Organization [facility] Address [address] [place] [address] Care Team Providers Care Community Affairs Director Name Role Phone Sanket Gonsalves DO Primary Care Provider Encounter Details Date Type Department Care Team (Late st Contact Info) Description 05/30/2023 Abstract [facility] [address] [place] [address] Becky Mccauley, [facility] [address] [place] [address] Social History Tobacco Use Types Packs/Day Years [...] on filedocumented in this encounter Care Teams Community Affairs Director Relationship Specialty Start Date End Date Sanket Gonsalves DO PCP - General Internal Medicine 05/09/23 documented as of this encounter
--- OUTSIDE RECORDS SUMMARY | 2025-06-01 17:13 | XMS_ITS | CCD ---
Author Organization [facility] Care Team Providers Care Patient Access Name Role Phone DR SANKET GONSALVES Attending Unavailable MAJOR, DR DELCID Consulting Unavailable MAJOR, DR DELCID Admitting Unavailable Sanket Gonsalves DO Unavailable Sanket Gonsalves Unavailable ARISTEO LANGE Referring Unavailable ARISTEO LANGE Attending Unavailable ARISTEO LANGE Referring Unavailable ARISTEO LANGE Attending Unavailable Sanket Gonslaves DO Primary Care Provider Sanket Gonsalves DO Attending Provider [phone] Kimmy Sotelo APRN Attending Provider Medications Current Medications Medication Drug Class(es) Dates Sig (Normalized) Sig (Original) azithromycin 250 mg oral tablet (1 source) Macrolide Antimicrobial Start: 12-10-2022 Azithromycin 250 MG as directed Orally daily for 5 days Nov, Active doxycycline monohydrate 100 mg oral tablet (1 source) Tetracycline-class Drug Start: 05-03-2025 take 1 tablet by mouth twice daily Doxycycline Monohydrate 100 mg tablet Active 100 MG PO Twice daily 09 08May 03, 2025 12:00am Complies with drug therapy Completed/Discontinued Medications Medication Drug Class(es) Dates Sig (Normalized) Sig (Original) cephalexin 500 mg oral capsule (2 sources) Cephalosporin Antibacterial Start: 02-19-2025 End: 04-02-2025 take 1 capsule by mouth three times daily Cephalexin 500 mg capsule Discontinued 500 MG PO Three times daily 10 05February 19, 2025 12:00am April 02, 2025 10:12am meloxicam 15 mg oral tablet (10 sources) Nonsteroidal Anti-inflammatory Drug Start: 02-04-2024 End: 02-19-2025 take 1 tablet by mouth once daily Meloxicam 15 mg tablet Discontinued 0 .ROUTE .COMPLEX February 04, 2024 1:23pm February 19, 2025 1:45pm TAKE 1 TABLET BY MOUTH EVERY DAY Start: 01-07-2024 End: 02-04-2024 take 1 tablet by mouth once daily Meloxicam 15 mg tablet Discontinued 15 MG PO Daily January 07, 2024 12:00am February 04, 2024 1:24pm predniSONE 20 mg oral tablet (2 sources) Start: 02-19-2025 End: 04-02-2025 Prednisone 20 mg tablet Discontinued 20 MG PO As Directed February 19, 2025 12:00am April 02, 2025 10:13am 1 tab tid w/ food x 3 days, then bid w/ food x 3 days, then qd w/ food x 3 days Problems Active Problems Problem Classification Problem Date Documented Date Episodic/Chronic Acute and chronic tonsillitis (8 sources) Amygdalolith; Translations: [Other chronic diseases of tonsils and adenoids] 06-19-2024 Chronic Cardiac dysrhythmias (2 sources) Palpitations; Translations: [Palpitations] 04-02-2025 Episodic Contraceptive and procreative management (2 sources) Encounter for other general counseling and advice on contraception; Translations: [Encounter for sterilization] Onset: 07-08-2023 Episodic E Codes: Natural/environment (2 sources) Tick bite; Translations: [Bitten or stung by nonvenomous insect and other nonvenomous arthropods, initial encounter] 05-03-2025 Episodic Intracranial injury (7 sources) Concussion injury of body structure; Translations: [Concussion] 12-06-2024 Episodic Open wounds of head; neck; and trunk (5 sources) Laceration without foreign body of scalp, initial encounter; Translations: [Open wound of scalp, without mention of complication] 12-08-2024 Episodic Other connective tissue disease (2 sources) Right achilles tendonitis; Translations: [Achilles tendinitis, right leg] 02-19-2025 Episodic Other male genital disorders (1 source) Spermatocele; Translations: [Spermatocele of epididymis, single] Episodic Other non-traumatic joint disorders (5 sources) Pain in right shoulder; Translations: [Right shoulder pain] 01-07-2024 Episodic Other nutritional; endocrine; and metabolic disorders (1 source) Body mass index 30+ - obesity; Translations: [Obesity, unspecified] Chronic Other nutritional; endocrine; and metabolic disorders (1 source) Obesity, unspecified Chronic Other nutritional; endocrine; and metabolic disorders (7 sources) Overweight; Translations: [Overweight] 01-07-2024 Episodic Other skin disorders (4 sources) Sebaceous cyst of skin; Translations: [Sebaceous cyst] 06-19-2024 Episodic Other skin disorders (2 sources) Eruption; Translations: [Rash and other nonspecific skin eruption] 05-03-2025 Episodic Other upper respiratory infections (1 source) Streptococcal pharyngitis Episodic Skin and subcutaneous tissue infections (2 sources) Cellulitis of finger of left hand; Translations: [Cellulitis of left finger] 02-19-2025 Episodic Sprains and strains (3 sources) Unspecified sprain of right wrist, initial encounter; Translations: [Sprain of wrist, unspecified site] 12-08-2024 Episodic Superficial injury; contusion (4 sources) Abrasion and/or friction burn of hand without infection; Translations: [Abrasion of right hand, initial encounter] 12-08-2024 Episodic Past or Other Problems Problem Classification Problem Date Documented Da te Episodic/Chronic Conditions associated with dizziness or vertigo (6 sources) Dizziness and giddiness; Translations: [Dizziness and giddiness] Onset: 07-16-2016 01-07-2024 Episodic Results Test Name Value Interpretation Reference Range Facil ity Basophils Auto (Bld) [#/Vol] on 12-02-2024 Basophils (Bld) [#/Vol] Automated basophil count 0.0-0.[address] [facility] Basophils/100 WBC Auto (Bld) on 12-02-2024 Basophils/100 WBC (Bld) Automated basophil % 0.2-2.[address] [facility] Eosinophils/100 WBC Auto (Bl d)on 12-02-2024 Eosinophils/100 WBC (Bld) Automated eosinophil % 0.9-7.[address] [facility] Erythrocyte distribution wid th Auto (RBC) [Ratio]on 12-02-2024 Erythrocyte distribution width (RBC) [Ratio] Erythrocyte distribution width [Ratio] by Automated count 11.0-15.[address] [facility] Estimated glomerular filtrat ion rate (GFR) non- Americanon 12-02-2024 GFR/1.73 sq M.predicted among non-blacks MDRD (S/P/Bld) [Vol rate/Area] Estimated glomerular filtration rate (GFR) non- >=60 mL/min/1.73m [address] [facility] Globulin Calc (S) [Mass/Vol] on 12-02-2024 Globulin (S) [Mass/Vol] Serum globulin measurement by calculation (mass/volume) [facility] Hematocrit Auto (Bld) [Volum e fraction]on 12-02-2024 Hematocrit (Bld) [Volume fraction] Hematocrit [Volume Fraction] of Blood by Automated count 42.0-54.[address] [facility] Hemoglobin [Mass/volume] in Bloodon 12-02-2024 Hemoglobin (Bld) [Mass/Vol] Hemoglobin [Mass/volume] in Blood 14.0-18.[address] [facility] Laboratory - Chemistry and C hemistry - challengeon 12-02-2024 Albumin [Mass/Vol] 3.9 g/dL 3.4-5.0 [facility] ALP [Catalytic activity/Vol] 70 U/L 46-[address] [facility] ALT [Catalytic activity/Vol] 38 U/L 16-[address] [facility] AST [Catalytic activity/Vol] 22 U/L 15-[address] [facility] Bilirubin [Mass/Vol] 0.3 mg/dL 0.2-1.0 [facility] Calcium [Mass/Vol] 9.1 mg/dL 8.5-10.1 [facility] Chloride [Moles/Vol] 102 mmol/L 98-107 [facility] CO2 [Moles/Vol] 29.7 mmol/L 21.0-32.0 [facility] Creatinine [Mass/Vol] 1.10 mg/dL 0.70-1.[address] [facility] GFR/1.73 sq M.predicted MDRD (S/P/Bld) [Vol rate/Area] mL/min/{1.73_m2} >=60 mL/min/1.73m [address] [facility] Glucose [Mass/Vol] 121 mg/dL High 74-106 [facility] Comment on above: SPECIMEN SLIGHTLY LI PEMIC Potassium [Moles/Vol] 3.1 mmol/L Low 3.5-5.[address] [facility] Protein [Mass/Vol] 7.6 g/dL 6.4-8.2 [facility] Sodium [Moles/Vol] 143 mmol/L 136-145 [facility] Urea nitrogen [Mass/Vol] 18.0 mg/dL 7.0-18.[address] [facility] Urea nitrogen/Creatinine [Mass ratio] 16.4 mg/mg [facility] Laboratory - Hematology and Cell countson 12-02-2024 Immature granulocytes/100 WBC (Bld) 0.3 % 0.0-0.[address] [facility] Leukocytes [#/volume] correc sujata for nucleated erythrocytes in Blood by Automated counon 12-02-2024 WBC corrected for nucl RBC Auto (Bld) [#/Vol] Leukocytes [#/volume] corrected for nucleated erythrocytes in Blood by Automated coun 4.0-11.[address] [facility] Lymphocytes Auto (Bld) [#/Vo l]on 12-02-2024 Lymphocytes (Bld) [#/Vol] Lymphocytes [#/volume] in Blood by Automated count 1.2-3.[address] [facility] Lymphocytes/100 WBC Auto (Bl d)on 12-02-2024 Lymphocytes/100 WBC (Bld) Lymphocytes/100 leukocytes in Blood by Automated count 20.5-60.[address] [facility] MCH Auto (RBC) [Entitic mass ]on 12-02-2024 MCH (RBC) [Entitic mass] MCH [Entitic mass] by Automated count 25.9-34.[address] [facility] MCHC Auto (RBC) [Mass/Vol]on 12-02-2024 MCHC (RBC) [Mass/Vol] MCHC [Mass/volume] by Automated count 29.9-35.[address] [facility] MCV Auto (RBC) [Entitic vol] on 12-02-2024 MCV (RBC) [Entitic vol] MCV [Entitic volume] by Automated count 80.0-94.[address] [facility] Monocytes Auto (Bld) [#/Vol] on 12-02-2024 Monocytes (Bld) [#/Vol] Automated blood monocyte count 0.3-0.[address] [facility] Monocytes/100 WBC Auto (Bld) on 12-02-2024 Monocytes/100 WBC (Bld) Automated monocyte % 1.7-12.[address] [facility] Neutrophils Auto (Bld) [#/Vo l]on 12-02-2024 Neutrophils (Bld) [#/Vol] Neutrophils [#/volume] in Blood by Automated count 1.4-6.[address] [facility] Neutrophils/100 WBC Auto (Bl d)on 12-02-2024 Neutrophils/100 WBC (Bld) Automated neutrophil % 43.0-75.[address] [facility] No Panel Informationon 12-02 Eosinophils # (Auto) 0.3 10 3/uL 0.0-0.7 [facility] Immature Granulocyte # (Auto) 0.02 10 3/uL 0.00-0.[address] [facility] Troponin I High Sensitivity 5.7 pg/mL 4.0-76.[address] [facility] Comment on above: CUT-OFF POINTS [...] in Blood by Automated count Low 9.5-13.[address] [facility] Platelets Auto (Bld) [#/Vol] on 12-02-2024 Platelets (Bld) [#/Vol] Platelets [#/volume] in Blood by Automated count 150-[address] [facility] RBC Auto (Bld) [#/Vol]on RBC (Bld) [#/Vol] Erythrocytes [#/volume] in Blood by Automated count 4.70-6.[address] [facility] Serum or plasma albumin/glob ulin mass ratioon 12-02-2024 Albumin/Globulin [Mass ratio] Serum or plasma albumin/globulin mass ratio [facility] Serum or plasma anion gap de terminationon 12-02-2024 Anion gap [Moles/Vol] Serum or plasma anion gap determination [facility] Basophils Auto (Bld) [#/Vol] on 06-05-2024 Basophils (Bld) [#/Vol] 0.0 10 3/uL 0.0-0.[address] [facility] Basophils/100 WBC Auto (Bld) on 06-05-2024 Basophils/100 WBC (Bld) 0.5 % 0.2-2.[address] [facility] Cholesterol in LDL Calc [Mas s/Vol]on 06-05-2024 Cholesterol in LDL [Mass/Vol] 138.0 mg/dL [facility] Comment on above: <100 mg/dl [id number] 0-129 mg/dl NEAR OR ABOVE [id number] mg/dl BORDERLINE [id number] mg/dl HIGH>190 mg/dl VERY HIGH Cholesterol in VLDL Calc [Ma ss/Vol]on 06-05-2024 Cholesterol in VLDL [Mass/Vol] 20.6 mg/dL [facility] Eosinophils/100 WBC Auto (Bl d)on 06-05-2024 Eosinophils/100 WBC (Bld) 3.4 % 0.9-7.[address] [facility] Erythrocyte distribution wid th Auto (RBC) [Ratio]on 06-05-2024 Erythrocyte distribution width (RBC) [Ratio] 12.3 % 11.0-15.[address] [facility] Estimated glomerular filtrat ion rate (GFR) non- Americanon 06-05-2024 GFR/1.73 sq M.predicted among non-blacks MDRD (S/P/Bld) [Vol rate/Area] mL/min/{1.73_m2} >=[address] [facility] Globulin Calc (S) [Mass/Vol] on 06-05-2024 Globulin (S) [Mass/Vol] 3.6 g/dL [facility] Hematocrit Auto (Bld) [Volum e fraction]on 06-05-2024 Hematocrit (Bld) [Volume fraction] 48.7 % 42.0-54.[address] [facility] Hemoglobin [Mass/volume] in Bloodon 06-05-2024 Hemoglobin (Bld) [Mass/Vol] 16.7 g/dL 14.0-18.[address] [facility] Laboratory - Chemistry and C hemistry - challengeon 06-05-2024 Albumin [Mass/Vol] 4.1 g/dL 3.4-5.0 [facility] ALP [Catalytic activity/Vol] 64 U/L 46-[address] [facility] ALT [Catalytic activity/Vol] 29 U/L 16-[address] [facility] AST [Catalytic activity/Vol] 20 U/L 15-[address] [facility] Bilirubin [Mass/Vol] 0.8 mg/dL 0.2-1.0 [facility] Calcium [Mass/Vol] 9.1 mg/dL 8.5-10.1 [facility] Chloride [Moles/Vol] 101 mmol/L 98-107 [facility] Cholesterol [Mass/Vol] 210 mg/dL High <=[address] [facility] Cholesterol in HDL [Mass/Vol] 52 mg/dL 40-[address] [facility] Comment on above: > or =60 mg/dl - LOW CARDIOVASCULAR RISK<40 mg/dl - HIGH CARDIOVASCULAR RISK CO2 [Moles/Vol] 28.5 mmol/L 21.0-32.0 [facility] Creatinine [Mass/Vol] 0.98 mg/dL 0.70-1.[address] [facility] GFR/1.73 sq M.predicted MDRD (S/P/Bld) [Vol rate/Area] mL/min/{1.73_m2} >=[address] [facility] Glucose [Mass/Vol] 84 mg/dL 74-106 [facility] Potassium [Moles/Vol] 3.7 mmol/L 3.5-5.[address] [facility] Protein [Mass/Vol] 7.7 g/dL 6.4-8.2 [facility] Sodium [Moles/Vol] 137 mmol/L 136-145 [facility] Triglyceride [Mass/Vol] 103 mg/dL <=[address] [facility] TSH Qn 2.811 m[IU]/L 0.358-3.[address] [facility] Urea nitrogen [Mass/Vol] 20.0 mg/dL High 7.0-18.[address] [facility] Urea nitrogen/Creatinine [Mass ratio] 20.4 mg/mg [facility] Laboratory - Hematology and Cell countson 06-05-2024 Immature granulocytes/100 WBC (Bld) 0.3 % 0.0-0.[address] [facility] Leukocytes [#/volume] correc sujata for nucleated erythrocytes in Blood by Automated counon 06-05-2024 WBC corrected for nucl RBC Auto (Bld) [#/Vol] 6.2 10 3/uL 4.0-11.[address] [facility] Lymphocytes Auto (Bld) [#/Vo l]on 06-05-2024 Lymphocytes (Bld) [#/Vol] 2.2 10 3/uL 1.2-3.[address] [facility] Lymphocytes/100 WBC Auto (Bl d)on 06-05-2024 Lymphocytes/100 WBC (Bld) 35.6 % 20.5-60.[address] [facility] MCH Auto (RBC) [Entitic mass ]on 06-05-2024 MCH (RBC) [Entitic mass] 30.5 pg 25.9-34.[address] [facility] MCHC Auto (RBC) [Mass/Vol]on 06-05-2024 MCHC (RBC) [Mass/Vol] 34.3 g/dL 29.9-35.[address] [facility] MCV Auto (RBC) [Entitic vol] on 06-05-2024 MCV (RBC) [Entitic vol] 88.9 fL 80.0-94.[address] [facility] Monocytes Auto (Bld) [#/Vol] on 06-05-2024 Monocytes (Bld) [#/Vol] 0.6 10 3/uL 0.3-0.[address] [facility] Monocytes/100 WBC Auto (Bld) on 06-05-2024 Monocytes/100 WBC (Bld) 9.1 % 1.7-12.[address] [facility] Neutrophils Auto (Bld) [#/Vo l]on 06-05-2024 Neutrophils (Bld) [#/Vol] 3.2 10 3/uL 1.4-6.[address] [facility] Neutrophils/100 WBC Auto (Bl d)on 06-05-2024 Neutrophils/100 WBC (Bld) 51.1 % 43.0-75.[address] [facility] No Panel Informationon 06-05 Eosinophils # (Auto) 0.2 10 3/uL 0.0-0.7 [facility] Immature Granulocyte # (Auto) 0.02 10 3/uL 0.00-0.[address] [facility] Platelet mean volume Auto (B ld) [Entitic vol]on 06-05-2024 Platelet mean volume (Bld) [Entitic vol] 9.2 fL Low 9.5-13.[address] [facility] Platelets Auto (Bld) [#/Vol] on 06-05-2024 Platelets (Bld) [#/Vol] 339 10 3/uL 150-[address] [facility] RBC Auto (Bld) [#/Vol]on RBC (Bld) [#/Vol] 5.48 10 6/uL 4.70-6.10 [facility] Serum or plasma albumin/glob ulin mass ratioon 06-05-2024 Albumin/Globulin [Mass ratio] 1.1 {ratio} [facility] Serum or plasma anion gap de terminationon 06-05-2024 Anion gap [Moles/Vol] 11.2 mmol/L [facility] Serum or plasma total choles terol/high density lipoprotein (HDL) cholesterol mass florence 06-05-2024 Cholesterol.total/Ch olesterol in HDL [Mass ratio] 4.0 {ratio} [facility] Comment on above: 3.3 - 4.4 LOW RISK4. 4 - 7.1 AVERAGE RISK7.1 - 11.0 MODERATE RISK>11.0 HIGH RISK POST VASEC SCREENon 07-08-20 23 Collection time (Stephany) [Date/time] 1130 Normal [facility] Comment on above: Order Comment: Speci men Type: SEMINAL FLUID SPECIMEN Ordering Facility: [facility] Address: [address] [place] [address] Result Comment: 1131 Performed By: #### S EPOST #### [facility] CLIA [id number] [place] [address] Color (Stephany) Friedman Opalescent Normal [facility] Comment on above: Order Comment: Speci men Type: SEMINAL FLUID SPECIMEN Ordering Facility: [facility] Address: [address] [address] Performed By: #### S EPOST #### [facility] CLIA [id number] [address] [place] [address] COMMENT POST VASEC No sperm seen on wet preps. Normal [facility] Comment on above: Order Comment: Speci men Type: SEMINAL FLUID SPECIMEN Ordering Facility: [facility] Address: [address] [address] Performed By: #### S EPOST #### [facility] CLIA [id number] [address] [place] [id number] pH (Stephany) 7.6 Normal >=7.2 [facility] Comment on above: Order Comment: Speci men Type: SEMINAL FLUID SPECIMEN Ordering Facility: [facility] Address: [address] [address] Performed By: #### S EPOST #### [facility] CLIA [id number] [address] [place] [address] POST VASECTOMY SCREEN Pass per AUA guidelines (<=100,000 non-motile sperm/mL ) Normal Pass per AUA guidelines (<=100,000 non-motile sperm/mL ) [facility] Comment on above: Order Comment: Speci men Type: SEMINAL FLUID SPECIMEN Ordering Facility: [facility] Address: [address] [address] Performed By: #### S EPOST #### [facility] CLIA [id number] [address] [place] [address] Sexual abstinence duration [Time] 4.0 Days Normal [facility] Comment on above: Order Comment: Speci men Type: SEMINAL FLUID SPECIMEN Ordering Facility: [facility] Address: [address] [address] Performed By: #### S EPOST #### [facility] CLIA [id number] [address] [place] [address] Specimen volume (Stephany) 6.00 mL Normal >=1.50 [facility] Comment on above: Order Comment: Speci men Type: SEMINAL FLUID SPECIMEN Ordering Facility: [facility] Address: [address] [address] Performed By: #### S EPOST #### [facility] CLIA [id number] [place] [address]. [place] [address] Spermatozoa Motile/100 spermatozoa (Stephany) No motile sperm seen Normal No motile sperm seen [facility] Comment on above: Order Comment: Speci men Type: SEMINAL FLUID SPECIMEN Ordering Facility: [facility] Address: [address] [address] Performed By: #### S EPOST #### [facility] CLIA [id number] [address] [place] [address] TIME TO ANALYSIS 24 Minutes Normal 0-60 [facility] Comment on above: Order Comment: Speci men Type: SEMINAL FLUID SPECIMEN Ordering Facility: [facility] Address: [address] [address] Performed By: #### S EPOST #### [facility] CLIA [id number] [address] [place] [address]. [place] [address] CNOVon 04-01-2023 CNOV Office Visit (UROLAV) AMNA AMES ([id number]) 1985 M Date Time Provider Department 04/01/23 [...] scale. Grounding pad applied L, lot # [id number], exp date 12/18/2024, bovie unit # [id number] Valium taken at 7am Patient Prep: Betadine [...] Education Session: None Instruction Provided To: Patient Reverse Unit Operator Fisherman Present: not applicable Discipline: Nursing Learning Topic: SURVIVAL SKILLS: Complication Prevention, precautions, andrology supplies and Symptom Management Patient Evaluation: Verbalizes understanding: Yes Supplemental Material Given: Written Material Instructed By Lexy Witt LPN in Urology Department . Pt. escorted pt to ellen. Gait steady. Pt stated no further questions [...] be worse than the other. Contact Numbers: Mayfield Angus: [phone] - ask to speak to or leave a message for the urology nurses Lenora Peters: [phone] - ask to speak to or leave a message for the urology nurses [facility]: [phone] Activity Level: No heavy lifting >20 lbs or vigorous activity for 1 week OK to resume sexual activity in 1 week Medications: You can take [id number] tylenol and/or ibuprofen as needed for pain. For the first 24 hours, I recommend taking [id number] dosing of tylenol alternating with ibuprofen every 4 hours (For Example, 8 AM tylenol, 12 PM ibuprofen, 4 PM Tylenol, 8 PM Ibuprofen). All normal medications can be resumed after the procedure Semen Analysis: Please get a semen eusebio (more content not included)... Normal [facility] Cyrus 12-27-2022 GUSTAVO Telephone (UROLAV) AMNA AMES ([id number]) 1985 M Date Time Provider Department 12/27/22 ARITSEO LANGE During your visit today, we recorded the following information about you: Donya Suresh Pss 12/27/2022 11:17 AM Signed Patient calling. Had a VV with Dr Lange on 12/21/22. Was waiting to get a call to schedule vasectomy, however, having some misgivings on have Dr Lange do it for various reasons. Please contact to schedule with another provider. If he needs seen again, please advise, would like to stay with [facility] for the procedure if possible. Jacek Small [...] Status:Closed by JACEK SMALL on 12/28/22 Normal [facility] CBC AUTO DIFFon 06-07-2022 BASO # 0.0 103/ul Normal 0.0-0.1 [facility] Comment on above: Performed By: #### H FPFCBC #### [facility] [address] [place] [address] Dr. Blaire Wilson Basophils/100 WBC (Bld) 0.5 % Normal 0.2-2.0 [facility] Comment on above: Performed By: #### H FPFCBC #### [facility] [address] [address] [address] Blaire Wilson EO # 0.2 103/ul Normal 0.0-0.7 [facility] Comment on above: Performed By: #### H FPFCBC #### [facility] [address] [place] [address] Dr. Blaire Wilson Eosinophils/100 WBC (Bld) 3.1 % Normal 0.9-7.0 [facility] Comment on above: Performed By: #### H FPFCBC #### [facility] [address] [place] [address] Dr. Blaire Wilson Erythrocyte distribution width (RBC) [Ratio] 12.7 % Normal 11.0-15.0 [facility] Comment on above: Performed By: #### H FPFCBC #### [facility] [address] [place] [address] Dr. Blaire Wilson Hematocrit (Bld) [Volume fraction] 45.9 % Normal 42.0-54.0 [facility] Comment on above: Performed By: #### H FPFCBC #### [facility] [address] [place] [address] Dr. Blaire Wilson Hemoglobin (Bld) [Mass/Vol] 15.3 g/dL Normal 14.0-18.0 [facility] Comment on above: Performed By: #### H FPFCBC #### [facility] [address] [place] [address] Dr. Blaire Wilson IG # 0.01 10e3/ul Normal 0.00-0.03 [facility] Comment on above: Performed By: #### H FPFCBC #### [facility] [address] [place] [address] Dr. Blaire Wilson IG % 0.2 % Normal 0.0-0.5 [facility] Comment on above: Performed By: #### H FPFCBC #### [facility] [address] [place] [address] Dr. Blaire Wilson LYMPH # 2.0 103/ul Normal 1.2-3.8 [facility] Comment on above: Performed By: #### H FPFCBC #### [facility] [address] [place] [address] Dr. Blaire Wilson Lymphocytes/100 WBC (Bld) 36.3 % Normal 20.5-60.0 [facility] Comment on above: Performed By: #### H FPFCBC #### [facility] [address] [place] [address] Dr. Blaire Wilson MCH (RBC) [Entitic mass] 29.6 pg Normal 25.9-34.0 [facility] Comment on above: Performed By: #### H FPFCBC #### [facility] [address] [place] [address] Dr. Blaire Wilson MCHC (RBC) [Mass/Vol] 33.3 g/dL Normal 29.9-35.2 [facility] Comment on above: Performed By: #### H FPFCBC #### [facility] [address] [place] [address] Dr. Blaire Wilson MCV (RBC) [Entitic vol] 88.8 fL Normal 80.0-94.0 [facility] Comment on above: Performed By: #### H FPFCBC #### [facility] [address] [place] [address] Dr. Blaire Wilson MONO # 0.5 103/ul Normal 0.3-0.8 [facility] Comment on above: Performed By: #### H FPFCBC #### [facility] [address] [place] [address] Dr. Blaire Wilson Monocytes/100 WBC (Bld) 8.4 % Normal 1.7-12.0 [facility] Comment on above: Performed By: #### H FPFCBC #### [facility] [address] [place] [address] Dr. Blaire Wilson NEUT # 2.9 103/ul Normal 1.4-6.5 [facility] Comment on above: Performed By: #### H FPFCBC #### [facility] [address] [place] [address] Dr. Blaire Wilson Neutrophils/100 WBC (Bld) 51.5 % Normal 43.0-75.0 [facility] Comment on above: Performed By: #### H FPFCBC #### [facility] [address] [place] [address] Dr. Blaire Wilson Platelet mean volume (Bld) [Entitic vol] 9.1 fL Critically low 9.5-13.5 [facility] Comment on above: Performed By: #### H FPFCBC #### [facility] [address] [place] [address] Dr. Blaire Wilson PLT 340 103/ul Normal 150-450 [facility] Comment on above: Performed By: #### H FPFCBC #### [facility] [address] [place] [address] Dr. Blaire Wilson RBC 5.17 106/ul Normal 4.70-6.10 [facility] Comment on above: Performed By: #### H FPFCBC #### [facility] [address] [place] [address] Dr. Blaire Wilson WBC 5.6 103/ul Normal 4.0-11.0 [facility] Comment on above: Performed By: #### H FPFCBC #### [facility] [address] [place] [address] Dr. Blaire Wilson [employer] PROFILEon 022 Albumin [Mass/Vol] 4.0 g/dL Normal 3.4-5.0 [facility] Comment on above: Performed By: #### H FPF #### [facility] [address] [place] [address] Dr. Blaire Wilson Albumin/Globulin [Mass ratio] 1.1 {ratio} Normal [facility] Comment on above: Performed By: #### H FPF #### [facility] [address] [place] [address] Dr. Blaire Wilson ALP [Catalytic activity/Vol] 60 U/L Normal 46-116 [facility] Comment on above: Performed By: #### H FPF #### [facility] [address] [place] [address] Dr. Blaire Wilson ALT [Catalytic activity/Vol] 21 U/L Normal 16-63 [facility] Comment on above: Performed By: #### H FPF #### [facility] [address] [place] [address] Dr. Blaire Wilson AST [Catalytic activity/Vol] 15 U/L Normal 15-37 [facility] Comment on above: Performed By: #### H FPF #### [facility] [address] [place] [address] Dr. Blaire Wilson Bilirubin [Mass/Vol] 0.4 mg/dL Normal 0.2-1.0 [facility] Comment on above: Performed By: #### H FPF #### [facility] [address] [address] [address] Blaire Wilson Calcium [Mass/Vol] 8.9 mg/dL Normal 8.5-10.1 [facility] Comment on above: Performed By: #### H FPF #### [facility] [address] [address] [address] Blaire Wilson Chloride [Moles/Vol] 104 mmol/L Normal 98-107 [facility] Comment on above: Performed By: #### H FPF #### [facility] [address] [place] [address] Dr. Blaire Wilson CHOL-HDL RATIO NORM SEE BELOW Normal [facility] Comment on above: Result Comment: 3.3 - 4.4 LOW RISK 4.4 - 7.1 AVERAGE RISK 7.1 - 11.0 MODERATE RISK >11.0 HIGH RISK Performed By: #### H FPF #### [facility] [address] [place] [address] Dr. Blaire Wilson Cholesterol [Mass/Vol] 176 mg/dL Normal <=200 [facility] Comment on above: Performed By: #### H FPF #### [facility] [address] [place] [address] Dr. Blaire Wilson Cholesterol in HDL [Mass/Vol] 48 mg/dL Normal 40-60 [facility] Comment on above: Performed By: #### H FPF #### [facility] [address] [place] [address] Dr. Blaire Wilson Cholesterol in LDL [Mass/Vol] 113.6 mg/dL Normal [facility] Comment on above: Performed By: #### H FPF #### [facility] [address] [place] [address] Dr. Blaire Wilson Cholesterol.total/Ch olesterol in HDL [Mass ratio] 3.7 {ratio} Normal [facility] Comment on above: Performed By: #### H FPF #### [facility] [address] [address] [address] Blaire Wilson CO2 [Moles/Vol] 28.2 mmol/L Normal 21.0-32.0 [facility] Comment on above: Performed By: #### H FPF #### [facility] [address] [address] [address] Blaire Wilson Creatinine [Mass/Vol] 0.90 mg/dL Normal 0.70-1.30 [facility] Comment on above: Performed By: #### H FPF #### [facility] [address] [address] [address] Blaire Wilson Globulin (S) [Mass/Vol] 3.5 g/dL Normal [facility] Comment on above: Performed By: #### H FPF #### [facility] [address] [place] [address] Dr. Blaire Wilson Glucose [Mass/Vol] 91 mg/dL Normal 74-106 [facility] Comment on above: Performed By: #### H FPF #### [facility] [address] [address] [address] Blaire Wilson HDL NORMAL > or = 60 mg/dl - LOW CARDIOVASCULAR RISK <40 mg/dl - HIGH CARDIOVASCULAR RISK Normal [facility] Comment on above: Performed By: #### H FPF #### [facility] [address] [address] [address] Blaire Wilson LDL CALC NORMAL SEE BELOW Normal [facility] Comment on above: Result Comment: <100 mg/dl OPTIMAL 100 - 129 mg/dl NEAR OR ABOVE OPTIMAL 130 - 159 mg/dl BORDERLINE HIGH 160 - 189 mg/dl HIGH >190 mg/dl VERY HIGH Performed By: #### H FPF #### [facility] [address] [address] [address] Blaire Wilson Potassium [Moles/Vol] 4.0 mmol/L Normal 3.5-5.1 [facility] Comment on above: Performed By: #### H FPF #### [facility] [address] [address] [address] Blaire Wilson Protein [Mass/Vol] 7.5 g/dL Normal 6.4-8.2 [facility] Comment on above: Performed By: #### H FPF #### [facility] [address] [address] [address] Blaire Wilson Sodium [Moles/Vol] 141 mmol/L Normal 136-145 [facility] Comment on above: Performed By: #### H FPF #### [facility] [address] [address] [address] Blaire Wilson Triglyceride [Mass/Vol] 72 mg/dL Normal <=150 [facility] Comment on above: Performed By: #### H FPF #### [facility] [address] [address] [address] Blaire Wilson TSH 1.730 uIU/mL Normal 0.358-3.740 [facility] Comment on above: Performed By: #### H FPF #### [facility] [address] [address] [address] Blaire Wilson Urea nitrogen [Mass/Vol] 19.0 mg/dL Critically high 7.0-18.0 [facility] Comment on above: Performed By: #### H FPF #### [facility] [address] [address] [address] Blaire Wilson Urea nitrogen/Creatinine [Mass ratio] 21.1 mg/mg Normal [facility] Comment on above: Performed By: #### H FPF #### [facility] [address] [address] [address] Blaire Wilson VLDL CALC 14.4 mg/dL Normal [facility] Comment on above: Performed By: #### H FPF #### [facility] [address] [address] [address] Blaire Wilson Coding Summary.on 04-20-2020 Coding Summary. CODING DATE: 04/20/2020 FINAL [facility] STATUS: Home (Routine DC) PAYOR: [facility] [place] ADMIT DX: REASON FOR VISIT DX: Z01.84 [...] Humphrey Date Saved: 04/20/2020 03:04 pm Normal [facility] Physician Orderon 04-03-2020 Physician Order [id number] 5#1.00CD:127 Normal [facility] Coding Summary.on 10-07-2019 Coding Summary. CODING DATE: 10/07/2019 FINAL [facility] STATUS: Home (Routine DC) PAYOR: [facility] [place] [facility] DESCRIPTION 5691 Level 1 Drug Administration 5693 Level 3 Drug Administration 5024 Level 4 Type A ED Visits ADMIT DX: REASON FOR VISIT DX: R11.10 Vomiting, unspecified R19.7 Diarrhea, unspecified FINAL DX: PRINCIPAL: K52.9 Noninfective gastroenteritis and colitis, unspecified SECONDARY: [facility] STAT DESCRIPTION DOCTOR NAME DATE NOTE: The code number assigned matches the documented diagnosis and / or procedure in the patient's chart. However, the narrative phrase printed from the coding software may appear abbreviated, or result in slightly different terminology. Revised Coded By: Francisca Jackson Revised Date Saved: 10/07/2019 12:31 pm Normal [facility] Amylaseon 10-04-2019 Amylase [Catalytic activity/Vol] 73 unit/L Normal 25-157 [facility] Comment on above: Performed By: #### 1 [id number], 2590278, 3742167, 1461902, 7141745, 7275711 #### [facility] [address] [place] [address] Auto Diffon 10-04-2019 Basophils/100 WBC (Bld) 0.1 % Normal 0.0-2.0 [facility] Comment on above: Order Comment: Order Added by Discern Expert. Performed By: #### 1 3550017, 1965010, 9214226, 7128191, 6853078, 9416716 #### [facility] [address] [place] [address] Basophils/Leukocytes Auto (Bld) [Pure # fraction] 0.0 E9/L Normal 0.0-0.2 [facility] Comment on above: Order Comment: Order Added by Discern Expert. Performed By: #### 1 [id number], 3592363, 6454556, 9645639, 8142284, 8416750 #### [facility] [address] [place] [address] Eosinophils/100 WBC (Bld) 0.1 % Normal 0.0-8.0 [facility] Comment on above: Order Comment: Order Added by Discern Expert. Performed By: #### 1 3072647, 3427001, 4172775, 2038978, 9337700, 3869070 #### [facility] [address] [place] [address] Eosinophils/Leukocyt es Auto (Bld) [Pure # fraction] 0.0 E9/L Normal 0.0-0.5 [facility] Comment on above: Order Comment: Order Added by Michael Expert. Performed By: #### 1 3668222, 0440374, 2910181, 1812249, 9358230, 7171164 #### [facility] [address] [place] [address] Lymphocytes/100 WBC (Bld) 1.3 % Low 14.0-50.0 [facility] Comment on above: Order Comment: Order Added by Michael Expert. Performed By: #### 1 3318652, 3243726, 1098134, 2778081, 6415043, 0304393 #### [facility] [address] [place] [address] Lymphocytes/Leukocyt es Auto (Bld) [Pure # fraction] 0.2 E9/L Low 1.0-4.0 [facility] Comment on above: Order Comment: Order Added by Michael Expert. Performed By: #### 1 1044612, 1134443, 5100218, 6442268, 6833285, 5619398 #### [facility] [address] [place] [address] Monocytes/100 WBC (Bld) 5.6 % Normal 4.0-14.0 [facility] Comment on above: Order Comment: Order Added by Discern Expert. Performed By: #### 1 9813928, 1355809, 3204360, 7194694, 8769446, 2047122 #### [facility] [address] [place] [address] Monocytes/Leukocytes Auto (Bld) [Pure # fraction] 0.8 E9/L Normal 0.2-1.0 [facility] Comment on above: Order Comment: Order Added by Discern Expert. Performed By: #### 1 0118283, 2284122, 9957585, 6809389, 8816700, 4503473 #### [facility] [address] [place] [address] Neutrophils/100 WBC (Bld) 92.9 % High 36.0-75.0 [facility] Comment on above: Order Comment: Order Added by Discern Expert. Performed By: #### 1 1963004, 2885123, 4517008, 2994799, 7434977, 1470562 #### [facility] [address] [place] [address]8081 Neutrophils/Leukocyt es Auto (Bld) [Pure # fraction] 13.6 E9/L High 2.0-7.5 [facility] Comment on above: Order Comment: Order Added by Discern Expert. Performed By: #### 1 1856673, 2878190, 5011497, 6045622, 9120320, 1638503 #### [facility] [address] [place] [address]34[address] CBC w/ Auto Diffon 9 Erythrocyte distribution width (RBC) [Ratio] 13.2 % Normal 10.9-14.2 [facility] Comment on above: Performed By: #### 1 6762132, 1151369, 9603053, 2195401, 0862381, 2499656 #### [facility] [address] [place] [address] Hematocrit (Bld) [Volume fraction] 52.3 % High 37.7-49.0 [facility] Comment on above: Performed By: #### 1 6849473, 9385032, 8434249, 2287135, 7513036, 7384737 #### [facility] [address] [place] [address] Hemoglobin (Bld) [Mass/Vol] 18.0 g/dL High 13.5-17.5 [facility] Comment on above: Performed By: #### 1 4098755, 1607059, 3564124, 4637932, 0617135, 4184522 #### [facility] [address] [place] [address]45 MCH (RBC) [Entitic mass] 30.1 pg Normal 27.0-34.0 [facility] Comment on above: Performed By: #### 1 3944455, 6129785, 1374815, 6700531, 5420035, 2075840 #### [facility] [address] [place] [address] MCHC (RBC) [Mass/Vol] 34.4 g/dL Normal 31.4-36.0 [facility] Comment on above: Performed By: #### 1 4580299, 4543122, 2862970, 0135058, 1690571, 5329042 #### [facility] [address] [place] [address] MCV (RBC) [Entitic vol] 87.4 fL Normal 80.0-100.0 [facility] Comment on above: Performed By: #### 1 8937212, 1911546, 8905629, 1538807, 0662700, 7253156 #### [facility] [address] [place] [address] 11843 Platelet mean volume (Bld) [Entitic vol] 7.2 fL Normal 6.4-10.8 [facility] Comment on above: Performed By: #### 1 1396466, 1151894, 4262864, 4717767, 5400912, 5136448 #### [facility] [address] [place] [address] Platelets (Bld) [#/Vol] 334.0 E9/L Normal 150.0-500.0 [facility] Comment on above: Performed By: #### 1 0847524, 3164823, 2423495, 4950999, 8308494, 3639260 #### [facility] [address] [place] [address] 37986 RBC (Bld) [#/Vol] 6.0 E12/L High 4.3-5.9 [facility] Comment on above: Performed By: #### 1 5834025, 5308550, 9798332, 0428499, 0542194, 9996025 #### [facility] [address] [place] [address] WBC corrected for nucl RBC Auto (Bld) [#/Vol] 14.7 E9/L High 4.0-11.0 [facility] Comment on above: Performed By: #### 1 5286521, 1882485, 6809028, 7378838, 7989887, 1772783 #### [facility] [address] [place] [address] CMPon 10-04-2019 Albumin [Mass/Vol] 5.2 g/dL High 3.3-5.0 [facility] Comment on above: Performed By: #### 1 8817968, 2184046, 2440361, 7763594, 2485063, 9495427 #### [facility] [address] [place] [address]647 Albumin [Mass/Vol] 1.4 g/dL Normal 1.1-2.2 [facility] Comment on above: Performed By: #### 1 3295419, 0899109, 8849487, 6167219, 9645411, 1787516 #### [facility] [address] [place] [address]85 ALP [Catalytic activity/Vol] 57 Int._Unit/L Normal 21-98 [facility] Comment on above: Performed By: #### 1 8256090, 5086057, 5289706, 9961485, 5946423, 5119601 #### [facility] [address] [place] [address] 70323 ALT No additional P-5'-P [Catalytic activity/Vol] 21 Int._Unit/L Normal 6-46 [facility] Comment on above: Performed By: #### 1 5555278, 4170193, 7022713, 7731899, 3964662, 8151551 #### [facility] [address] [place] [address] AST [Catalytic activity/Vol] 23 Int._Unit/L Normal 5-43 [facility] Comment on above: Performed By: #### 1 5596362, 1518459, 9098764, 6787767, 8165621, 2987691 #### [facility] [address] [place] [address] Bilirubin [Mass/Vol] 1.6 mg/dL High 0.0-1.1 [facility] Comment on above: Performed By: #### 1 6618973, 0033642, 6811560, 9939849, 8009117, 0032963 #### [facility] [address] [place] [address] Creatinine [Mass/Vol] 1.0 mg/dL Normal 0.5-1.3 [facility] Comment on above: Performed By: #### 1 2094051, 3057457, 7509851, 1550601, 8058722, 2820300 #### [facility] [address] [place] [address] Globulin (S) [Mass/Vol] 3.7 g/dL Normal 1.4-4.0 [facility] Comment on above: Performed By: #### 1 2553346, 9040779, 8901463, 2514746, 9814052, 7741563 #### [facility] [address] [place] [address] Protein [Mass/Vol] 8.9 g/dL High 6.0-7.8 [facility] Comment on above: Performed By: #### 1 1391931, 0548493, 8506018, 1268281, 0697315, 3441240 #### [facility] [address] [place] [address] Urea nitrogen [Mass/Vol] 28 mg/dL High 5-21 [facility] Comment on above: Performed By: #### 1 8733012, 7270529, 5434066, 9053042, 0897981, 3168308 #### [facility] [address] [place] [address] Urea nitrogen/Creatinine [Mass ratio] 28 No Units High 10-20 [facility] Comment on above: Performed By: #### 1 3869792, 4776832, 1593981, 9868699, 4313221, 2838478 #### [facility] [address] [place] [address] Anion gap [Moles/Vol] 16 mmol/L Normal 6-16 [facility] Comment on above: Performed By: #### 1 1596201, 4913270, 4707792, 9107298, 0245604, 4307974 #### [facility] [address] [place] [address] Calcium [Mass/Vol] 9.9 mg/dL Normal 8.9-11.1 [facility] Comment on above: Performed By: #### 1 2738453, 1962580, 3703114, 1719474, 9908608, 8106074 #### [facility] [address] [place] [address] Chloride [Moles/Vol] 103 mmol/L Normal 101-111 [facility] Comment on above: Performed By: #### 1 2760634, 3211338, 6707012, 8094474, 1121326, 2315961 #### [facility] [address] [place] [address] CO2 [Moles/Vol] 25 mmol/L Normal 21-31 [facility] Comment on above: Performed By: #### 1 4449947, 7961738, 2061228, 2035793, 5655511, 1221150 #### [facility] [address] [place] [address] Glucose [Mass/Vol] 145 mg/dL Normal 55-199 [facility] Comment on above: Result Comment: If t his glucose result represents a fasting glucose, interpretation should refer to the following reference range: 55-99 mg/dL Performed By: #### 1 0275960, 4819015, 7450490, 5668439, 9689228, 4683981 #### [facility] [address] [place] [address] Potassium [Moles/Vol] 3.8 mmol/L Normal 3.5-5.3 [facility] Comment on above: Performed By: #### 1 9336464, 7957644, 1146126, 6020794, 0815158, 5024393 #### [facility] [address] [place] [address] Sodium [Moles/Vol] 140 mmol/L Normal 135-145 [facility] Comment on above: Performed By: #### 1 6946085, 3865794, 6030174, 4990827, 6454357, 1702662 #### [facility] [address] [place] [address] ED Clinical Summaryon 2018 ED Clinical Summary [address] [address] ED Clinical Summary Person Information Name: AMNA AMES [facility] Age: 34 Years : 1985 Sex: Male Language: Pashto PCP: SANKET GONSALVES DO Marital Status: Visit [...] 03:41:43 10/04/2019 03:41:43 AD[address]: [address] [place] [address] PHYS DOC NOTES: MEDICAL INFORMATION: Prescriptions Given: New Medications Printed Prescriptions atropine-diphenoxyla te (Lomotil oral tablet) 2 Tablets By Mouth 4 times a day as needed for loose stools. Refills: 0. ondansetron (Zofran ODT 4 mg Tab) 1 Tablets By Mouth 4 times a day. Refills: 0. PATIENT EDUCATION INFORMATION: Instructions: Viral Gastroenteritis Follow up: With: Address: When: SANKET GONSALVES [address] [facility] [place] [address] Business (1) In 3 days 10/07/2019 DIAGNOSIS: 1:Gastroenteritis Normal [facility] ED Note-Physicianon 10-04-20 ED Note-Physician Basic Information Time Seen: Michael Mao MD 10/04/2019 00:30 Chief Complaint complains of vomtiing and diarrhea since 1700 tonight. unable to keep anything down. states feels dehydrated History of Present Illness presents with recurrent vomiting and diarrhea for the past 6 hours. Did go to a [employer] tonight. Others ate same food and reportedly [...] 87.4 fL (10/04/19 00:35:00) MCH: 30.1 pg (10/04/19 00:35:00) MCHC: 34.4 gm/dL (10/04/19 00:35:00) RDW: 13.2 % (10/04/19 00:35:00) Platelet: 334 E9/L (10/04/19 00:35:00) MPV: 7.2 fL (10/04/19 00:35:00) Neutro Auto: 92.9 % High (10/04/19 00:35:00) Lymph Auto: 1.3 % Low (10/04/19 00:35:00) [place] Auto: 5.6 % (10/04/19 00:35:00) Eos Auto: 0.1 % (10/04/19:35:00) Basophil Auto: 0.1 % (10/04/19:35:00) Neutro Absolute: 13.6 E9/L High (10/04/19 00:35:00) Lymph Absolute: 0.2 E9/L Low (10/04/19:35:00) [place] Absolute: 0.8 E9/L (10/04/19 00:35:00) Eos Absolute: [...] Color: Yellow2 (10/04/19 01:20:00) UA Clarity: Clear2 (10/04/19:20:00) UA Spec Grav: 1.020 (10/04/19:20:00) UA pH: 7.0 (10/04/19 01:20:00) UA Protein: Trace2 Abnormal (10/04/19:20:00) UA Glucose: NEGATIVE1 (10/04/19:20:00) UA Ketones: 2+ Abnormal (10/04/19 01:20:00) UA Bili: NEGATIVE1 (10/04/19 01:20:00) UA Blood: NEGATIVE1 (10/04/19:20:00) UA Nitrite: NEGATIVE1 (10/04/19:20:00) UA Urobilinogen: 0.2 (10/04/19:20:00) UA Leuk Est: NEGATIVE1 (10/04/19 01:20:00) UA RBC: 0-3 (10/04/19:20:00) UA Squam Epithelial: 0-2 (12/15/19 01:20:00) UA WBC: 0-5 (10/04/19 01:20:00) UA Bacteria: Trace2 (10/04/19 01:20:00) UA Mucous: 2+ (10/04/19 01:20:00) Diagnostic Results No qualifying data available. Normal [facility] Comment on above: Result Comment: [...] avoid spreading the virus. ? Only take tlqd-hiz-glnudfz or prescription medicines for pain, discomfort, or fever as directed by your caregiver. Do not give aspirin to children. Antidiarrheal medicines are not recommended. ? Ask your caregiver if you should continue to take your regular prescribed and qcfa-jrx-ouukibp medicines. ? Keep all follow-up appointments as [...] Document Reviewed: 07/23/2012 ExitCare? Patient Information ?2014 [employer]. This information is not intended to replace advice given to you by your health care provider. Make sure you discuss any questions you have with your health care provider. Normal [facility] ED Patient Summaryon 019 ED Patient Summary [place] [id number] Patient Discharge Instructions Person Information Name: AMNA AMES Age: 34 Years Arrival Date: 10/04/2019 00:11:34 Discharge Diagnosis: 1:Gastroenteritis Primary Care Physician: SANKET GONSALVES DO Provider Information Primary Provider: Michael Mao MD Advanced Ventilator Specialist:None The exam and treatment you received in the Emergency Department were for an urgent problem and are not intended as complete care. It is important that you follow up with a doctor, nurse practitioner, or physician?s assistant librarian for ongoing care. If your symptoms become worse or you do not improve as expected and you are unable to reach your usual health care provider, you should return to the Emergency Department. We are available 24 hours a day. AMNA AMES has been given the following list of patient education materials, prescriptions and follow-up instructions: Follow-up Instructions: With: Address: When: SANKET GONSALVES [address] [place], [place] [id number] [facility] (1) In 3 days 10/07/2019 In the event that this physician does not participate in your insurance network, please consult with your insurance company to find a nearby participating provider. Patient Education Materials: Viral Gastroenteritis A MESSAGE TO ALL PATIENTS REGARDING OPIOIDS PRESCRIPTION OPIOIDS: WHAT YOU NEED TO KNOW Prescription opioids can be used to help relieve uvbfgbqn-pg-wbtqjp pain and are often prescribed following a [...] be struggling with addiction, tell your health healthcare or medical and ask for guidance or call SAMHSA?S National Helpline at 7-526-210-CUIM. v Source: US Department of Health and Human Services/Center for Disease Control & Prevention [facility] Medications Given: Medication Dose Route [...] Information: LEÓN Geronimo Thank you for choosing [facility] Patient Education Materials: Viral Gastroenteritis Viral [...] avoid spreading the virus. ? Only take lnqk-spr-ogprmjf or prescription medicines for pain, discomfort, or fever as directed by your caregiver. Do not give aspirin to children. Antidiarrheal medicines are not recommended. ? Ask your caregiver if you should continue to take your regular prescribed and yayb-yhq-dbzvfta medicines. ? Keep all follow-up appointments as [...] Document Reviewed: 07/23/2012 ExitCare? Patient Information ?2015 [employer]. This information is not intended to replace advice given to you by your health care provider. Make sure you discuss any questions you have with your health care provider. KWAKU Camacho CHRISTOPHER M , have received the following patient education materials/instructio ns and have verbalized understanding: Patient Education Materials: Viral Gastroenteritis Follow-up Instructions: With: Address: When: SANKET GONSALVES [address] [facility], [place] [address] Business (1) In 3 days 10/07/2019 Patient Signature Date Clinician/Nurse Signature Date 10/04/2019 03:41:45 Normal [facility] Lipase Levelon 10-04-2019 Lipase [Catalytic activity/Vol] 36 unit/L Normal 13-58 [facility] Comment on above: Performed By: #### 1 [id number], [id number] #### [facility] [address] [place] [address] Progress Note-Nurseon 2018 Progress Note-Nurse pt drank 32 oz of water with no nausea/vomiting noted. States feels better. Notified Normal [facility] UA With Cult Reflexon 2018 Bacteria LM Ql (Urine sed) TRACE Normal Trace [facility] Comment on above: Performed By: #### 1 [id number] #### [facility] [address] [place] [address] Bilirubin Ql (U) Negative Normal Negative [facility] Comment on above: Performed By: #### 1 [id number] #### [facility] [address] [place] [address] Clarity (U) CLEAR Normal Clear [facility] Comment on above: Performed By: #### 1 [id number] #### [facility] [address] [place] [address] Color (U) YELLOW Normal Yellow [facility] Comment on above: Performed By: #### 1 [id number] #### [facility] [address] [place] [address] Epithelial cells.squamous LM.HPF (Urine sed) [#/Area] 0-2 Normal 0-2 [facility] Comment on above: Performed By: #### 1 [id number] #### [facility] [address] [place] [address] Glucose Test strip (U) [Mass/Vol] Negative Normal Negative [facility] Comment on above: Performed By: #### 1 [id number] #### [facility] [address] [place] [address] Hemoglobin Ql (U) Negative Normal Negative [facility] Comment on above: Performed By: #### 1 [id number] #### [facility] [address] [place] [address] Ketones (U) [Mass/Vol] 2+ Abnormal Negative [facility] Comment on above: Performed By: #### 1 [id number] #### [facility] [address] [place] [address] [place].plasma/Lithi um.RBC (Bld) [Mass ratio] 0-3 Normal 0-3 [facility] Comment on above: Performed By: #### 1 [id number] #### [facility] [address] [place] [address] Mucus Ql (Urine sed) 2+ Normal [facility] Comment on above: Performed By: #### 1 [id number] #### [facility] [address] [place] [address] Nitrite Ql (U) Negative Normal Negative [facility] Comment on above: Performed By: #### 1 [id number] #### [facility] [address] [place] [address] pH (U) 7.0 [pH] 5.0-9.0 [facility] Comment on above: Performed By: #### 1 [id number] #### [facility] [address] [place] [address] Protein (U) [Mass/Vol] TRACE Abnormal Negative [facility] Comment on above: Performed By: #### 1 [id number] #### [facility] [address] [place] [address] Specific gravity (U) [Rel density] 1.020 1.005-1.030 [facility] Comment on above: Performed By: #### 1 [id number] #### [facility] [address] [place] [address] UA Spec Desc Clean Catch Normal [facility] Comment on above: Performed By: #### 1 [id number] #### [facility] [address] [place] [address] Urobilinogen Qn (U) 0.2 {Jennifer'U}/dL Normal 0.0-1.0 [facility] Comment on above: Performed By: #### 1 [id number] #### [facility] [address] [place] [address] WBC Auto Ql (U) Negative Normal Negative [facility] Comment on above: Performed By: #### 1 [id number] #### [facility] [address] [place] [address] WBC LM.HPF (Urine sed) [#/Area] 0-5 Normal 0-5 [facility] Comment on above: Performed By: #### 1 [id number] #### [facility] [address] [place] [address] eGFRon 10-04-2019 GFR/1.73 sq M predicted among blacks MDRD (S/P/Bld) [Vol rate/Area] mL/min/{1.73_m2} Normal >=59 [facility] Comment on above: Order Comment: Order added by Discern Expert. Result Comment: eGFR is race adjusted. AA=. Performed By: #### 1 [id number], [id number], [id number], [id number], [id number] #### [facility] [address] [place] [address] GFR/1.73 sq M predicted among non-blacks MDRD (S/P/Bld) [Vol rate/Area] mL/min/{1.73_m2} Normal >=59 [facility] Comment on above: Order Comment: Order added by Discern Expert. Result Comment: [employer] ritesh kidney disease could be indicated at eGFR's of less than 60 mL/min/1.73m2. Kidney failure is indicated at less than 15 mL/min/1.73m2. Performed By: #### 1 [id number], [id number], [id number], [id number], [id number], [id number] #### [facility] [address] [place] [address] Vital Signs Date Time Vital Sign Value Performing Clinician Facility 05-03-2025 14:53-0400 Body height 175.26 cm Sanket Ball DO Work Phone: [facility] 05-03-2025 14:53-0400 Body mass index (BMI) [Ratio] 28.9 kg/m2 Sanket Ball DO Work Phone: [facility] 05-03-2025 14:53-0400 Body temperature 96.4 [degF] Sanket Ball DO Work Phone: [facility] 05-03-2025 14:53-0400 Body weight 88.9 kg Sanket Ball DO Work Phone: [facility] 05-03-2025 14:53-0400 Diastolic blood pressure 64 mm[Hg] Sanket Ball DO Work Phone: [facility] 05-03-2025 14:53-0400 Heart rate 61 /min Sanket Ball DO Work Phone: [facility] 05-03-2025 14:53-0400 SaO2% (BldA) [Mass fraction] 97 % Sanket Ball DO Work Phone: [facility] 05-03-2025 14:53-0400 Systolic blood pressure 104 mm[Hg] Sanket Ball DO Work Phone: [facility] 04-02-2025 10:15-0400 Body height 175.26 cm Sanket Ball DO Work Phone: [facility] 04-02-2025 10:15-0400 Body mass index (BMI) [Ratio] 29.2 kg/m2 Sanket Ball DO Work Phone: [facility] 04-02-2025 10:15-0400 Body weight 89.98 kg Sanket Ball DO Work Phone: [facility] 04-02-2025 10:15-0400 Diastolic blood pressure 83 mm[Hg] Sanket Ball DO Work Phone: [facility] 04-02-2025 10:15-0400 Heart rate 59 /min Sanket Ball DO Work Phone: [facility] 04-02-2025 10:15-0400 Respiratory rate 12 /min Sanket Ball DO Work Phone: [facility] 04-02-2025 10:15-0400 Systolic blood pressure 117 mm[Hg] Sanket Ball DO Work Phone: [facility] 02-19-2025 13:46-0400 Body height 175.26 cm [facility] 02-19-2025 13:46-0400 Body mass index (BMI) [Ratio] 30.4 kg/m2 [facility] 02-19-2025 13:46-0400 Body weight 93.44 kg [facility] 02-19-2025 13:46-0400 Diastolic blood pressure 86 mm[Hg] [facility] 02-19-2025 13:46-0400 Heart rate 67 /min [facility] 02-19-2025 13:46-0400 Respiratory rate 12 /min [facility] 02-19-2025 13:46-0400 Systolic blood pressure 141 mm[Hg] [facility] 12-08-2024 15:52-0500 Body height 175.26 cm [facility] 12-08-2024 15:52-0500 Body mass index (BMI) [Ratio] 30.2 kg/m2 [facility] 12-08-2024 15:52-0500 Body weight 92.75 kg [facility] 12-08-2024 15:52-0500 Diastolic blood pressure 85 mm[Hg] [facility] 12-08-2024 15:52-0500 Heart rate 71 /min [facility] 12-08-2024 15:52-0500 Respiratory rate 12 /min [facility] 12-08-2024 15:52-0500 Systolic blood pressure 136 mm[Hg] [facility] 06-19-2024 11:16-0400 Body height 175.26 cm [facility] 06-19-2024 11:16-0400 Body mass index (BMI) [Ratio] 28.5 kg/m2 [facility] 06-19-2024 11:16-0400 Body weight 87.77 kg [facility] 06-19-2024 11:16-0400 Diastolic blood pressure 78 mm[Hg] [facility] 06-19-2024 11:16-0400 Heart rate 58 /min [facility] 06-19-2024 11:16-0400 Respiratory rate 12 /min [facility] 06-19-2024 11:16-0400 Systolic blood pressure 125 mm[Hg] [facility] 01-07-2024 14:37-0400 Body height 175.26 cm [facility] 01-07-2024 14:37-0400 Body mass index (BMI) [Ratio] 29 kg/m2 [facility] 01-07-2024 14:37-0400 Body weight 89.35 kg [facility] 01-07-2024 14:37-0400 Diastolic blood pressure 85 mm[Hg] [facility] 01-07-2024 14:37-0400 Heart rate 56 /min [facility] 01-07-2024 14:37-0400 Respiratory rate 12 /min [facility] 01-07-2024 14:37-0400 Systolic blood pressure 132 mm[Hg] [facility] 12-10-2022 11:00-0500 Body height 165.1 cm Sanket Ball Other [facility] Other 12-10-2022 11:00-0500 Body mass index (BMI) [Ratio] 33.61 kg/m2 Sanket Ball Other [facility] Other 12-10-2022 11:00-0500 Body weight 91.63 kg Sanket Gonsalves Other [facility] Other 12-10-2022 11:00-0500 Diastolic blood pressure 76 mm[Hg] Sanket Gonsalves Other [facility] Other 12-10-2022 11:00-0500 Respiratory rate 12 /min Sanket Gonsalves Other [facility] Other 12-10-2022 11:00-0500 Systolic blood pressure 122 mm[Hg] Sanket Gonsalves Other [facility] Other Encounters Encounter Date Encounter Type Care Provider Facility Start: 05-03-2025 End: 05-03-2025 ambulatory Sanket Gonsalves DO Work Phone: [facility] Work Phone: Start: 05-03-2025 End: 05-03-2025 Patient encounter procedure Kimmy Sotelo APRN JEWELRY SORTER -[facility] Work Phone: Start: 04-02-2025 End: 04-02-2025 Patient encounter procedure Sanket Gonsalves DO -[facility] Work Phone: Start: 02-19-2025 End: 02-19-2025 ambulatory [facility] Work Phone: Start: 02-19-2025 End: 02-19-2025 Patient encounter procedure [facility] Work Phone: Start: 12-11-2024 End: 12-11-2024 ambulatory [facility] Work Phone: Start: 12-11-2024 End: 12-11-2024 Patient encounter procedure [facility] Work Phone: Start: 12-08-2024 End: 12-08-2024 ambulatory [facility] Work Phone: Start: 12-08-2024 End: 12-08-2024 Patient encounter procedure [facility] Physician [facility] Work Phone: Start: 12-03-2024 Non-patient / Non-visit [facility] Work Phone: Start: 12-03-2024 Non-patient / Non-visit [facility] Work Phone: Start: 12-02-2024 Non-patient / Non-visit [facility] Work Phone: Start: 06-19-2024 End: 06-19-2024 ambulatory [facility] Work Phone: Start: 06-19-2024 End: 06-19-2024 Patient encounter procedure [facility] Work Phone: Start: 06-05-2024 Non-patient / Non-visit [facility] Work Phone: Start: 01-07-2024 End: 01-07-2024 ambulatory [facility] Work Phone: Start: 01-07-2024 End: 01-07-2024 Encounter for general adult medical examination without abnormal findings [facility] Start: 01-07-2024 End: 01-07-2024 Patient encounter procedure [facility] Work Phone: Start: 07-08-2023 End: 07-08-2023 ambulatory ARISTEO Lutz ELENO Facility:[facility] Start: 04-01-2023 End: 04-01-2023 ambulatory ARISTEO LANGE Facility:[facility] Start: 12-27-2022 Telephone encounter Aristeo kitchen MD Work Phone: Urology Comment on above: Procedure Start: 12-21-2022 End: 12-21-2022 ambulatory ARISTEO LANGE Facility:[facility] Start: 12-10-2022 End: 12-10-2022 ambulatory Sanket Gonsalves Other [facility] Other Start: 12-10-2022 Encounter for genera l adult medical examination without abnormal findings Sanket Gonsalves [facility] Start: 12-10-2022 Periodic preventive med est patient 18-39 yrs Sanket Gonsalves [facility] Start: 06-07-2022 End: 06-08-[address] SANKET GONSALVES Facility:[facility] Plan of Treatment Date Care Activity Detail Author Start: 10-21-2022 DEPRESSION ASSESSMENT DEPRESSION ASS ESSMENT [facility] Start: 2022 LIPID SCREEN LIPID SCREEN [facility] Start: 2006 Urine microalbumin profile DTAP,TDAP,TD (1 - Tdap) [facility] Start: 2005 HEPATITIS C SCREENING HEPATITIS C SC YASMIN [facility] Start: 2005 HIV SCREENING HIV SCREENING [facility] Start: 1987 HEPATITIS B (1 of 3 - 3-dose series) HEPATITIS B (1 of 3 - 3-dose series) [facility] Immunizations Immunization Date Immunization Notes Care Provider Antionette palafox 09-03-2022 Pfizer/Comirnaty, Pediatric Age 5-[address] [facility] Payers Date Payer Category Payer Unknown MMO [employer] PPO [id number] 2016-Present [phone] [address] [place] [address] PPO [id number] 2016 Unknown [id number] 1959 Self-pay [id number] Unknown [id number] Social History Date Type Detail Facility Tobacco smoking status NHIS Tobacco smoking consumption unknown [facility] Start: 1987 Sex Assigned At Not on file C [facility] Sex Assigned At Sex Assigned At Bir th [facility] Other Start: 1987 Sex Assigned At Male F [facility] Start: 12-08-2024 End: 02-19-2025 Sex Male (finding) [facility] Clinical Notes 12-10-2022 to 02-19-2025 Note Date & Type Note Facility 02-19-2025 Evaluation note Diagnosis Onset Date Resolution Achilles tendinitis of right lower extremity acute February 19, 1:38pm Cellulitis of heel, right noneactive February 19, 2025 1: 38pm Heart palpitations acute March 212024 10:03am Overweight acute April 02 10:03am Rash acute May 03 2:50pm Tick bite acute May 03 2:50pm [facility] Work Phone: 1(904) 632-880702-18-2025 Evaluation note* Diagnosis Onset Date Resolution Status Admit Date Concussion acute December 08, 2024 3:25pm Laceration of scalp noneactive Febru ginna2024 3:25pm Contusion of hip, right noneactive F ebruary 2024 3:25pm Sprain of wrist, right noneactive Fe bruary 2024 3:25pm Laceration of scalp noneactive Febru ginna2024 1:29pm [facility] Work Phone: 1(632) 146-204306-12-2023 NoteHNO ID: [id number] Author: Aristeo Lange MD Service: ? Author [...] pt with verbalization of understanding. Aristeo Lange [facility]03-10-2023 Miscellaneous Notes* Telephone Encounter - Jacek Small [...] the procedure if possible. [facility] NoteHNO ID: [id number] Author: Aristeo Lange MD Service: ? Author Type: Physician Type: Progress Notes Filed: 12/21/2022 3:27 PM Note Text: This is a Virtual Visit. It required Viqitmk-zv-Tdpaznjn Interaction with medical decision making as documented [...] 50% of time in counseling Aristeo Lange, [facility]03-03-2023 Reason for referral (narrative)* Reason 12/21/22 Referral for scalpel free vasectomy with the [facility] Diagnosis 1 Encounter for vasect samia counseling (Z30.09) Referral Organization [facility] Richie higuera Referring Provider First Name Sanket Referring Provider Last Name Major Referring Provider Specialty Internal Al deeine Referred Organization [facility] Referred Provider Jerman De Jesus Referred Address [address] [place], [place],[address] Referred Provider Specialty Urology Referral Priority Routine [...] a virtual appt. faxed letter for notes DonellMiranda briggs 12/26/2022 04:32:08 PM >notes recieved and sent to Dr. Gonsalves for review. closing referral at this time. Clinical Notes Dr. Aristeo Lange P: [phone] F: [id number] [place] [facility] Other 02-20-2023 Evaluation note* Encounter Date Diagnosis [...] Z30.09) Would like to be referred to [facility] for scapel free procedure [facility] G3 Other Chiux complaint+Reason for visit Narrative* Chief Complaint referral for shoulde r Reason for Visit Wellness examination [facility] Work Phone: Evaluation note* Diagnosis Onset Date Resolution Status Wellness examination noneact mamie [facility] Work Phone: Evaluation noteNo assessment information available [facility] Work Phone: Evaluation note* Diagnosis Onset Date Resolution Status Admit Date Concussion acute December 08, 2024 3:25pm Laceration of scalp noneactive Febru ginna 2024 3:25pm Contusion of hip, right noneactive F ebruary 2024 3:25pm Sprain of wrist, right noneactive Fe bruary 2024 3:25pm [facility] Work Phone: History general Narrative - Reported* Type Description Date Medical History Spermatocele of epididymis, sing le Medical History Acute paronychia of finger of le ft hand Medical History Abrasion of palm of right hand, initial encounter Medical History Over weight [facility] Other Reason for referral (narrative)No reason for referral [facility] Work Phone: Summary Purpose Family History Relationship Condition Age at Onset Recorded Date/T thomas father Hypertension Unknown Advance Directives Advance Directive Response Recorded Date/ Time Advance Directives No January 06 024 2:26pm Advance Directive Response Recorded Date/ Time Advance Directives No January 06 1:26pm Chief Complaint and Reason for Visit [...] Laceration of scalp December 11, 2024 1:29pm Chief Complaint Admit Date Amb Documentation December 03, 2024 9:33am Stitches Removal December 08, 2024 3:25pm remove stiches December 11, 2024 1:29pm leg swelling and pain February 19, 2025 1:38 pm Chief Complaint Admit Date leg swelling and pain February 19, 2025 1:38 pm Heart Palpitations (for 1 week) March 10:03am rash left shoulder May 03, 2025 2:50 pm Reason for Visit Admit Date Achilles tendinitis of right lower extre mity February 19, 2025 1:38pm Cellulitis of heel, right February 19, 2025 1:38pm Heart palpitations April 02, 2025 10:0 3am Overweight April 02, 2025 10:0 3am Rash May 03, 2025 2:50 pm Tick bite May 03, 2025 2:50 pm Additional Source Comments (unrecognized sect ion and content) No Status Records FoundNo Status Records FoundNo Status Records Found INFORMATION SOURCE (unrecogn ized section and content) DATE CREATED AUTHOR 05/12/2020 [place] [facility] DATE CREATED AUTHOR AUTHOR'S ORGANIZ ATION 06/13/2022 [facility] DATE CREATED AUTHOR AUTHOR'S ORGANIZ ATION 07/09/2023 [facility] Source Comments (unrecognize d section and content) In the event this informatio n is protected by the Federal Confidentiality of Alcohol and Drug Abuse Patient Records regulations: The Federal rules restrict any use of the information to criminally investigate or prosecute any alcohol or drug abuse patient.[facility] Reason for Visit (unrecogniz ed section and content) Reason Comments Procedure Care Teams (unrecognized sec tion and content) Team Status: Active Member Role Status Dates Sanket Gonsalves DO Primary Care Provider Active Team Status: Inactive Member Role Status Dates Sanket Gonsalves DO Primary Care Provider Active Start: February 19, 2025 End: February 19, 2025 Sanket Gonsalves DO Attending Provider Active Sta rt: February 19, 2025 End: February 19, 2025 Team Status: Inactive Member Role Status Dates Sanket Gonsalves DO Primary Care Provider Active Start: April 02, 2025 End: April 02, 2025 Sanket Gonsalves DO Attending Provider Active Sta rt: April 02, 2025 End: April 02, 2025 Team Status: Inactive Member Role Status Dates Sanket Gonsalves DO Primary Care Provider Active Start: May 03, 2025 End: May 03, 2025 Kimmy Sotelo APRN [employer]-C Attending Provider Act mamie Start: May 03, 2025 End: May 03, 2025 Team Status: Active Member Role Status Efren Gonsalves DO Primary Care Provider Active Team Status: Active Member Role Status Efren Gonsalves DO Primary Care Provide r, Attending Provider Active Start: June 05, 2024 Team Status: Inactive Member Role Status Efren Gonsalves DO Primary Care Provide r, Attending Provider Active Start: June 19, 2024 End: June 19, 2024 Patient Access Relationship Specialty Start Date End Date Sanket Gonsalves DO [address] [place] [address] Referring Internal Medicine 12/18/22 Team Status: Inactive Member Role Status Efren Gonsalves DO Primary Care Provide r, Attending [...] 2024 Team Status: Inactive Member Role Status Efren Gonsalves DO Primary Care Provide r, Attending Provider Active Start: December 08, 2024 End: December 08, 2024 Team Status: Inactive Member Role Status Efren Gonsalves DO Primary Care Provide r, Attending Provider Active Start: December 11, 2024 End: December 11, 2024 Team Status: Active Member Role Status Efren Gonsalves DO Primary Care Provide r, Attending Provider Active Start: December 03, 2024 Team Status: Inactive Member Role Status Efren Gonsalves DO Primary Care Provide r, Attending Provider Active Start: February 19, 2025 End: February 19, 2025 Team Status: Inactive Member Role Status Efren Gonsalves DO Primary Care Provider Active Start: February 19, 2025 End: February 19, 2025 Sanket Gonsalves DO Attending Provider Active Sta rt: February 19, 2025 End: February 19, 2025 Team Status: Inactive Member Role Status Efren Gonsalves DO Primary Care Provider Active Start: April 02, 2025 End: April 02, 2025 Sanket Gonsalves DO Attending Provider Active Sta rt: April 02, 2025 End: April 02, 2025 Team Status: Inactive Member Role Status Dates Sanket Gonsalves DO Primary Care Provider Active Start: May 03, 2025 End: May 03, 2025 Kimmy Sotelo APRN CASEWORK MANAGER-C Attending Provider Act mamie Start: May 03, 2025 End: May 03, 2025 Goals (unrecognized section and content) Goals may [...] BE BASED ON THE PRIMARY CLINICAL RECORDS. [employer] provides no warranty or guarantee of the accuracy or completeness of information in this document.
== END 2025-06-01 15:57 | disposition home or self-care (01) ==
LOC: LAB 16:00
PROVIDERS: PCP Internal Medicine; Visit Provider Nurse Practitioner Family
DX: R21 Rash and other nonspecific skin eruption (principal); W57.XXXA Bitten or stung by nonvenomous insect and other nonvenomous arthropods, initial encounter
CPT/HCPCS: 36415; 86618